=== PATIENT | male | born 1940 | race Caucasian/White ===

== ENCOUNTER 2016-08-27 16:04 | Emergency (ER) | payer MEDICARE ==
[~2016-08-27] VITALS: Ht 172.7 cm; Wt 109.1 kg
[~2016-08-27 16:04] MED LIST: AMLO10TA3 PO; ATEN50TA PO; ATOR80TA PO; B 12 PO; D3 PO; ENALAPRIL PO; FURO40TA4 PO; HUMALOG SQ; INSULIN GLARGINE SQ; LOVENOX SQ; METF1000 PO; TRAM50TA2 PO; WARF5TAB7 PO; WARF7.5T4 PO
[2016-08-27 16:41] VITALS: BP 161/83; PULSE 77; RESP 14; O2SAT 100
--- NOTE | 2016-08-27 18:32 | DRSVH ---
PROCEDURE: X-RAY LEFT SHOULDER, MINIMUM TWO VIEWS ([id number]) INDICATIONS: trauma TECHNIQUE: 3 views of the shoulder were acquired. COMPARISON: None. FINDINGS: Bones: There is a comminuted fracture with minimal displacement of the left humeral head/neck. There is no gross fracture identified at the glenoid or coracoid process.. There is a mild appearance of in ferior subluxation/dislocation. Soft tissues: No suspicious soft tissue calcifications. IMPRESSION: Comminuted fracture with minimal displacement of the left humeral head/neck. There is a m ild appearance of inferior subluxation/dislocation. Dictated by: Jodie Merritt M.D. on 08/27/2016 at 18:28 Approved by: Jodie Merritt M.D. on 08/27/2016 at 18:30
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
[2016-08-27] MEDS ORDERED: Ondansetron 2 mg/mL 2 mL Inj IVPUSH ONE (18:50)
[2016-08-27] MEDS ORDERED: HYDROmorphone 0.5 mg/0.5 mL iSecure Syringe IVPUSH PRN (18:50)
--- NOTE | 2016-08-27 19:24 | DRSVH ---
PROCEDURE: CT BRAIN WITHOUT CONTRAST ([id number]) INDICATIONS: head trauma on coumadin, h/o bleed TECHNIQUE: Noncontrast 4.5 mm thick angled axial sections acquired from the foramen magnum to the vertex, with c oronal reformats. COMPARISON: [facility], CT, CT BRAIN WO CON, 03/25/2015, 8:56. FINDINGS: Image quality: Excellent. CSF spaces: Basal cisterns are patent. No extra-axial fluid collections. The ventricles are symmet alana in size and shape. Brain: There is several poorly visualized areas of hyperdensity within the left posterior temporal pa rietal lobe. There is cerebral volume loss for age, with resultant ventricular and sulcal prominence. There are periventricular and deep white matter chronic small vessel ischemic changes. There is in tracranial internal carotid artery atherosclerosis. 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 Low attenua tion and right temporal craniotomy are changes consistent with old trauma. Skull and face: Calvarium and visualized facial bones appear intact, without suspicious lesions. Le ft frontotemporal scalp hematoma. Sinuses: Visualized sinuses and mastoids are clear. IMPRESSION: 1. Mild, right posterior parietal areas of hyperdensity most suggestive of subarachnoid hemorrhage. 2. Moderate atrophy and chronic microvascular ischemic changes. The above findings were discussed with Dr. Elie Aguilar on 08/27/16 at 7:19 PM. Dictated by: Jodie Merritt M.D. on 08/27/2016 at 19:18 Approved by: Jodie Merritt M.D. on 08/27/2016 at 19:22
[2016-08-27] MEDS ORDERED: Phytonadione (Adult) 10 MG in Dextrose 5%-Pha MIX 50 ML IV ONE (19:45)
[2016-08-27] MEDS ORDERED: Ondansetron 8 mg ODT Tablet PO ONE (20:15)
[2016-08-27] MEDS ORDERED: Phytonadione (Adult) 10 mg/1 mL Inj PO ONE (20:15)
[2016-08-27] MEDS ORDERED: oxyCODONE-Acetamin 10-325 mg Tablet PO ONE ×2 (20:15→22:50)
[2016-08-27 20:51] LABS: BASOPHILS % (AUTO) 0.3 % (0-3); EOSINOPHILS % (AUTO) 0.4 % (0-5); MONOCYTES % (AUTO) 6.3 % (4-12); Mean Corpuscular Hemoglobin 28.9 pg (27.0-35.0); Mean Corpuscular Volume 88.7 fL (81-100); NEUTROPHILS % (AUTO) 85.8 % (40-74); Platelet Count 183 bil/L (150-400)
[2016-08-27 21:06] VITALS: BP 151/85; PULSE 84; RESP 13; O2SAT 99
[2016-08-27 21:06] LABS: INR 1.85 ratio
[2016-08-27] MEDS ORDERED: Insulin GLARgine 100 Unit/mL Syringe SUBQ ONE (22:50)
[2016-08-27] MEDS ORDERED: Insulin LISPRO 300 Unit/3 mL Inj SUBQ ONE (22:55)
[2016-08-27 23:10] LABS: APPEARANCE,URINE CLEAR (CLEAR,HAZY); COLOR,URINE YELLOW (YELLOW); OCCULT BLOOD,URINE LARGE (NEGATIVE); PH,URINE 5.5 (5.0-8.0); UROBILINOGEN,URINE NORMAL (NORMAL)
[2016-08-27] MEDS ORDERED: Ondansetron 2 mg/mL 2 mL Inj ONE (23:17)
[2016-08-27 23:25] VITALS: BP 146/74; PULSE 68; RESP 16; O2SAT 96
== END 2016-08-27 23:40 | disposition short-term general hospital (02) ==
LOC: SED 16:04
DX: S06.6X0A Traumatic subarachnoid hemorrhage without loss of consciousness, initial encounter (principal); S42.292A Other displaced fracture of upper end of left humerus, initial encounter for closed fracture; V00.831A Fall from motorized mobility scooter, initial encounter; Y92.410 Unspecified street and highway as the place of occurrence of the external cause; Y93.89 Activity, other specified; Y99.8 Other external cause status; D72.829 Elevated white blood cell count, unspecified; E11.65 Type 2 diabetes mellitus with hyperglycemia; I10 Essential (primary) hypertension; E78.5 Hyperlipidemia, unspecified; I25.10 Atherosclerotic heart disease of native coronary artery without angina pectoris; I50.9 Heart failure, unspecified; E66.9 Obesity, unspecified; Z95.1 Presence of aortocoronary bypass graft; Z95.2 Presence of prosthetic heart valve; Z87.820 Personal history of traumatic brain injury; Z68.36 Body mass index [BMI] 36.0-36.9, adult; Z87.891 Personal history of nicotine dependence; Z79.01 Long term (current) use of anticoagulants; Z79.84 Long term (current) use of oral hypoglycemic drugs; Z79.4 Long term (current) use of insulin; Z88.6 Allergy status to analgesic agent; Z88.8 Allergy status to other drugs, medicaments and biological substances
CPT/HCPCS: 36415; 36556; 70450; 73030; 80053; 81000; 85025; 85610; 87086; 87088; 96372; 96374; 96375; 99291; J1170; J1815; J2405; J3430

== ENCOUNTER 2016-10-15 20:31 | Inpatient (IN) | payer MEDICARE ==
[~2016-10-15] VITALS: Ht 172.7 cm; Wt 111.6 kg
[2016-10-15 20:39] VITALS: BP 151/85; PULSE 97; RESP 16; O2SAT 88
--- NOTE | 2016-10-15 20:50 | ED.REPORT ---
HPI-Dyspnea / Wheezing Date of Service Oct 15, 2016 ED Provider: Mikael Chilel MD The pt is a 76 y/o male anticoagulated on Warfarin w/ a hx of DM, HTN, HLD, CAD (s/p CABG x4, mechanical aortic valve replacement), CHF, prior subdural hematomas (s/p surgical drainage and craniotomy) who presents to the ED with his complaining of severe shortness of breath, onset today. He reports shallow breathing. Associated sx include shaking, diaphoresis, cough for a week , hemoptysis,hematuria, and malaise. He denies chills, fever, chest pain, abdominal pain, diarrhea, hematochezia, melena, and dysuria. The pt has never experienced similar sx before. He had a fall a month and a half ago and hit his head. He denies a headache at this time. Code status: Full treatment/Full code Nursing Notes Stated Complaint: SHORTNESS OF BREATH, COUGH X 1 WEEK Chief Complaint: Respiratory Complaints Nursing Notes Reviewed: Yes Allergies: Coded Allergies: NSAIDS (Non-Steroidal Anti-Inflamma (Verified Allergy, Unknown, 03/25/15) cortisone (Verified Allergy, Unknown, 03/25/15) Scheduled Amlodipine (Amlodipine) 10 Mg Tablet 10 MG PO QAM Aspirin Chew (Aspirin Chew) 81 Mg Chew 81 MG PO QAM Atenolol (Atenolol) 50 Mg Tablet 50 MG PO QAM Atorvastatin (Lipitor) 80 Mg Tablet 80 MG PO HS Cholecalciferol (Vitamin D3) (Vitamin D3) 1,000 Unit Tab.chew 1,000 UNIT PO QAM Cyanocobalamin (Vitamin B-12) (Vitamin B-12) 1,000 Mcg Tablet 1,000 MCG PO QAM Enalapril Maleate (Enalapril Maleate) 20 Mg Tablet 20 MG PO BID Ferrous Sulfate (Ferrous Sulfate) 325 Mg Tablet 325 MG PO BIDWM Finasteride (Finasteride) 5 Mg Tablet 5 MG PO QAM Hydralazine (Hydralazine) 10 Mg Tablet 10 MG PO BID Insulin Human Lispro (HumaLOG U100 Insulin Vial) 100 Unit/Ml Unit 20 UNIT SUBQ BIDWM Check blood sugars before meals and at bedtime. Use correction factor only before meals. Blood Sugar Lispro Correction: <151, 0 units; 151-175, 1 unit; 176-200, 2 units; 201-225, 3 units; 226-250, 4 units; 251-275, 5 units; 276-300 , 6 units; 301-325, 7 units; 326-350, 8 units; 351-375, 9 units; 376-400, 10 units; >400, 12 units. Metformin (Glucophage) 1,000 Mg Tablet 1,000 MG PO BIDWM NPH, Human Insulin Isophane (Novolin-N U100 Insulin Vial) 100 Unit/1 Ml Vial 25 UNIT SUBQ BID Tamsulosin (Flomax) 0.4 Mg Capsule 0.4 MG PO HS Trazodone (Trazodone) 50 Mg Tablet 100 MG PO HS Warfarin Sodium (Warfarin Sodium) 5 Mg Tablet 5 MG PO DAILYWD Scheduled PRN Acetaminophen (Acetaminophen) 325 Mg Tablet 650 MG PO Q4H PRN PRN For Pain Furosemide (Furosemide) 40 Mg Tablet 40 MG PO DAILY PRN PRN EDEMA oxyCODONE (oxyCODONE) 5 Mg Tablet 5-10 MG PO Q6H PRN PRN For Pain MAX 6/DAY General Time Seen by MD: 20:49 Chief Complaint Shortness of breath Hx Obtained From: Patient Arrived By: Walk-in Sudden in Onset?: Yes Onset Occurred: 1 - 4 hours ago Symptom Duration: Since onset Severity: Current: No pain currently Severity: Maximum: No pain Recent Healthcare: No recent doctor visit Past Medical History Past Medical History Notes: Code status: Full treatment/Full code Past Medical History 1. Diabetes mellitus. 2. Hypertension. 3. Hypercholesterolemia. 4. Severe obesity 5. History of smoking. 6. Status post coronary artery bypass surgery x4 and mechanical aortic valve replacement on January 11, 2003. 7. Obstructive sleep apnea, on continuous positive airway pressure. 8. Chronic dizziness. 9. Right bundle branch block. 10. Moderate to severe tricuspid regurgitation. 11. h/o Subdural hematoma requiring surgical drainage and craniotomy January 2015 Past Surgical History aortic valve (mechanical) craniotomy for subdural January 2015 Family History Noncontributory Smoking History Former Smoker Social History Drug Use: Denies drug use Other Social History: Good social support, , Lives in [facility], Local resident Ambulatory Status Independent Review of Systems Constitutional: Reports: Malaise, Denies: Chills, Fever Respiratory: Reports: Prod cough, bloody, Shortness of breath Cardiovascular: Denies: Chest pain Skin: Reports Diaphoresis Complete sys rev & neg: except as marked. GI: Denies: Abdominal pain, Diarrhea, Hematochezia, Melena Male: Reports Hematuria, Denies Dysuria Neurologic: Reports: Shaking, Denies: Headache Physical Exam Initial Vital Signs Vital Signs (First) Date Time Temp Pulse Resp B/P Pulse Ox O2 Delivery O2 Flow Rate FiO2 10/15/16 20:39 36.3 97 16 151/85 88 Room Air 10/15/16 21:07 2 Initial VS: Reviewed Extremities: Vascular intact, Neuro intact, No swelling, No tenderness Skin: Warm, Dry, No cyanosis Neurologic: Alert, Oriented, Nonfocal General/Constitutional: Awake, Alert, Cooperative Distress / Hydration: Positive: Distress mild Neck: Atraumatic, Supple, Full range of motion, No JVD Respiratory / Chest: Atraumatic, No rales, No rhonchi, No wheezing Crackles at the left base. Cardiovascular: Heart rate NL, Regular rhythm, Heart sounds NL, No gallop, No murmurs, No rubs Soft systolic murmur Abdomen: Atraumatic, Soft, Non-tender, No guarding, No rebound, BS normoactive Head / Eyes: Atraumatic (post craniotomy changes) Interpretation & Diagnostics Lab Results Interpretation Result Diagram: 10/15/16211010/15/162110 Test 10/15/16 21:11 10/15/16 22:35 White Blood Count 13.2th/mm3 (3.8-10.1) Red Blood Count 4.31mil/mm3 (4.40-5.80) Hemoglobin 12.8g/dL (13.8-17.2) Hematocrit 39.5% (41.0-50.0) Mean Corpuscular Volume 91.6fL (81-100) Mean Corpuscular Hemoglobin 29.7pg (27.0-35.0) Mean Corpuscular Hemoglobin Concent 32.4% (32.0-37.0) Red Cell Distribution Width 16.7% (12.3-15.4) Platelet Count 296bil/L (150-400) Neutrophils (%) (Auto) 86.6% (40-74) Lymphocytes (%) (Auto) 5.0% (14-46) Monocytes (%) (Auto) 7.3% (4-12) Eosinophils (%) (Auto) 0.5% (0-5) Basophils (%) (Auto) 0.2% (0-3) Prothrombin Time 89.8sec (8.1-12.5) Prothromb Time International Ratio 8.04ratio Sodium Level 142mEq/L (134-144) Potassium Level 4.1mEq/L (3.5-5.2) Chloride Level 103mEq/L (97-108) Carbon Dioxide Level 20mmol/L (18-29) Blood Urea Nitrogen 24mg/dL (8-27) Creatinine 0.71mg/dL (0.76-1.27) Estimat Glomerular Filtration Rate 115mL/min (>59) Glucose Level 183mg/dL (60-99) Lactic Acid Level 3.4mmol/L (0.4-2.0) Calcium Level 9.7mg/dL (8.5-10.1) Magnesium Level 1.7mg/dL (1.6-2.6) Total Bilirubin 1.2mg/dL (0.0-1.2) Aspartate Amino Transf (AST/SGOT) 16U/L (0-50) Alanine Aminotransferase (ALT/SGPT) 13U/L (0-44) Alkaline Phosphatase 130U/L (25-160) Troponin T 0.030ug/L (0.0-0.011) Pro-B-Type Natriuretic Peptide 2309pg/mL (0-486) Total Protein 7.3g/dL (6.4-8.4) Albumin 3.6g/dL (3.4-5.0) Procalcitonin 0.06ng/mL (0.00-0.08) Urine Color Bloody (YELLOW) Urine Appearance Cloudy (CLEAR,HAZY) Urine pH Color interference Urine Specific [place] 1.026 (1.003-1.035) Urine Protein Color interferencemg/dL Urine Glucose (UA) Color interferencemg/dL Urine Ketones Color interferencemg/dL Urine Occult Blood Color interference Urine Nitrite Color interference Urine Bilirubin Color interference Urine Urobilinogen Color interferencemg/dL Urine Leukocyte Esterase Color interference Urine RBC Packed/hpf (0-2) Urine WBC >50/hpf (0-5) Urine Epithelial Cells Few/hpf (NONE-MOD) Urine Crystals None seen (NONE SEEN) Urine Bacteria Moderate/hpf (NONE-FEW) Urine Hyaline Casts None/lpf (NONE) Urine Granular Casts None seen (NONE SEEN) Urine Waxy Casts None seen (NONE SEEN) Urine Red Blood Cell Casts None seen (NONE SEEN) Urine White Blood Cell Casts None seen (NONE SEEN) Urine Mucus Present (None Seen) Urine Trichomonas None seen (NONE SEEN) Urine Yeast None (NONE SEEN) Urinalysis Comment None Urine Culture Reflexed Indicated ECG Interpretation ECG Interpretation: Sinus rhythm. Rate 98. RBBB Posterior fascicular block. Anterolateral ST depression. New compared to the ECG in 10/2014 Time: 21:16 Interpreted by: ED physician X-Ray Chest Interpretation Chest Xray Interpretation: IMPRESSION: Left effusion with right basilar/retrocardiac opacities and increased pulmonary vascularity. Appearance is most suggestive of effusions with edema. By Basler/retrocardiac opacities can be product support sales representative of focal edema versus atelectasis/pneumonia. Dictated by: Jodie Merritt M.D. on 10/15/2016 at 21:43 Approved by: Jodie Merritt M.D. on 10/15/2016 at 21:46 View: Portable, 1 view Interpretation / Wet Read by: Interpret - Radiologist CT Head Interpretation No acute intracranial traumatic abnormality. Incidental findings above. Signed by Dr. Shy Gilbert 10/15/16 23:15 Study: Head CT no contrast Interpretation / Wet Read by: Interpret - Radiologist Re-Eval/Medical Decision Med Decision/Clinical Course 76-year-old male with an acute respiratory illness pneumonia thought to be more likely the primary issue rather than pulmonary edema from congestive heart failure. Blood cultures have been obtained, we have sent a respiratory panel and started Levaquin and cefepime. He has hemoptysis and hematuria in the setting of a markedly prolonged INR. No evidence of ongoing GI bleeding and hemoptysis is not causing respiratory distress. We will hold his warfarin at this point but not give vitamin K. Clearly no indication for a more emergent reversal. As an elevated lactic acid level, cautiously given him saline fluid bolus. He will be admitted to the hospitalist service. Source of Hx: Old records Re-Evaluation/Progress : Time of Eval: 22:11 Re-Evaluation/Progress Note: The pt report mild relief in the ED. Discussed lab results, diagnosis and plan to admit the pt. He understands and agrees with the plan. All questions answered. Consultation : Referral / Consult Name: Jhony Dumont MD Consulted With: Hospitalist Requested Call at: 23:16 Call Returned at: 23:18 Rate Manager: Will see patient, Agrees with eval, Agrees with plan, Accepts admit Counseled Regarding: Diagnosis, Lab results, Need for admission Discharge & Departure Impression: Primary Impression: Pneumonia Pneumonia type: due to unspecified organism Laterality: left Lung location : unspecified part of lung Qualified Code: J18.9 - Pneumonia, unspecified organism Additional Impressions: Over-anticoagulated Sepsis Sepsis type: sepsis due to unspecified organism Qualified Code: A41.9 - Sepsis, unspecified organism Hematuria Elevated troponin Disposition: ADMITTED TO HOSPITAL Referrals: Malgorzata Varner MD (PCP) Scribe Attestation Portions of this note were transcribed by Shamar Torres. I,, personally performed the history,physical exam and medical decision-making;I reviewed and confirmed the accuracy of the information in the transcribed note. Signed by Kory Mandujano. 10/15/16 copies to: Malgorzata Varner MD, Donald L MD Oct 15, 2016 20:50 Shamar Torres Oct 15, 2016 21:14
[2016-10-15 21:07] VITALS: BP 140/91; PULSE 102; RESP 23; O2SAT 93
[2016-10-15 21:22] LABS: BASOPHILS % (AUTO) 0.2 % (0-3); EOSINOPHILS % (AUTO) 0.5 % (0-5); MONOCYTES % (AUTO) 7.3 % (4-12); Mean Corpuscular Hemoglobin 29.7 pg (27.0-35.0); Mean Corpuscular Volume 91.6 fL (81-100); NEUTROPHILS % (AUTO) 86.6 % (40-74); Platelet Count 296 bil/L (150-400)
--- NOTE | 2016-10-15 21:48 | DRSVH ---
PROCEDURE: X-RAY CHEST ONE VIEW, PORTABLE ([id number]) INDICATIONS: dyspnea TECHNIQUE: One view of the chest was acquired. COMPARISON: [facility], CR, XR CHEST 1VW (PORTABLE), 02/18/2015, 23:52. FINDINGS: Surgical changes and devices: Sternal wires. Lungs and pleura: Left costophrenic angle blunting with bibasilar/retrocardiac opacities. Mediastinum: Mediastinal contours appear normal. Heart size is normal. Bones and chest wall: No suspicious bony lesions. Overlying soft tissues appear unremarkable. IMPRESSION: Left effusion with right basilar/retrocardiac opacities and increased pulmonary vasculari ty. Appearance is most suggestive of effusions with edema. By Basler/retrocardiac opacities can be re presentative of focal edema versus atelectasis/pneumonia. Dictated by: Jodie Merritt M.D. on 10/15/2016 at 21:43 Approved by: Jodie Merritt M.D. on 10/15/2016 at 21:46
[2016-10-15 21:49] LABS: INR 8.04 ratio
[2016-10-15 21:51] LABS: TROPONIN T 0.03 ug/L (0.0-0.011)
[2016-10-15 22:02] LABS: Magnesium 1.7 mg/dL (1.6-2.6)
[2016-10-15] MEDS ORDERED: levoFLOXacin Inj 750 MG in IV Premix 1 EACH IV ONE (22:25)
[2016-10-15] MEDS ORDERED: Cefepime Inj 2,000 MG in Dextrose 5% Minibag Plus 100 ML IV ONE (22:25)
[2016-10-15] MEDS ORDERED: 0.9% Sodium Chloride 500 ML IV ONE (22:25)
[2016-10-15] MEDS ORDERED: WARF5TAB7 PO (22:31)
[2016-10-15] MEDS ORDERED: OXYC-530 PO (22:31)
[2016-10-15] MEDS ORDERED: NPH,100V10 SUBQ (22:34)
[2016-10-15] MEDS ORDERED: HYDR-3938 PO (22:34)
[2016-10-15] MEDS ORDERED: ASPI81TA3 PO (22:34)
[2016-10-15] MEDS ORDERED: FINA5TAB9 PO (22:34)
[2016-10-15] MEDS ORDERED: FERR-83 PO (22:34)
[2016-10-15] MEDS ORDERED: TAMS0.4C98 PO (22:34)
[2016-10-15] MEDS ORDERED: TRAZ-115 PO (22:35)
[2016-10-15] MEDS ORDERED: CYAN10008 PO (22:35)
[2016-10-15] MEDS ORDERED: CHOL10008 PO (22:35)
[2016-10-15] MEDS ORDERED: ENAL20TA PO (22:37)
[2016-10-15] MEDS ORDERED: INSLIS SUBQ (22:37)
[2016-10-15 22:45] LABS: APPEARANCE,URINE CLOUDY (CLEAR,HAZY); COLOR,URINE BLOODY (YELLOW); OCCULT BLOOD,URINE COLOR INTERFERENCE (NEGATIVE); PH,URINE COLOR INTERFERENCE (5.0-8.0); UROBILINOGEN,URINE COLOR INTERFERENCE mg/dL (NORMAL)
[2016-10-15] MEDS ORDERED: ACET325T51 PO (23:05)
[2016-10-15 23:24] VITALS: BP 146/67; PULSE 100; RESP 21; O2SAT 93
[2016-10-15 23:41] VITALS: BP 146/67; PULSE 100; RESP 21; O2SAT 93
[2016-10-16] VITALS (13 sets, daily range): BP systolic 117–155; BP diastolic 70–87; PULSE 82–120; RESP 18–28; O2SAT 92–94
[2016-10-16] MEDS ORDERED: Polyethylene Glycol (PEG) 17 Gm Powder PO PRN
[2016-10-16] MEDS ORDERED: Alum-Mag Hydrox-Simeth 30 mL Suspension PO PRN
[2016-10-16] MEDS ORDERED: Albuterol 2.5 mg/3 mL Inhalation Solution NEB PRN
--- NOTE | 2016-10-16 00:23 | PCM.HPMED ---
Subjective Date of Service Oct 16, 2016 Primary Provider: Admitting Physician: Jhony Dumont MD Primary Care Physician: Malgorzata Varner MD Attending Physician: Jhony Dumont MD Admit Status: From the Emergency Department, [facility] Telemetry Chief Complaint: Productive cough, with associated shortness of breath, hemoptysis, fatigue History of Present Illness: Mr. 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 Initial evaluation included CT of brain with concern of his unique history of subdural hematomas, which was negative for any acute changes. Chest x-ray revealed moderate left- sided effusion with bibasilar retrocardiac opacities indicative of focal edema and/or atelectasis/pneumonia. With his elevation in white count to 13.2, pulse of 102, and lactic acid of 3.4, he was admitted for evaluation of treatment of sepsis, likely secondary to underlying pneumonia. - Hospital day 1 Mr. Albright is accompanied by his , and both patient and family report that he has been feeling ill over the recent week leading to admission, with complaints of weakness and fatigue. He notes that he has developed a cough over the recent days, somewhat productive, with intermittent, scant hemoptysis. The day of admission, and they note that he had developed increasing shortness of breath, diaphoresis, and chills. He denies any history of fever, nausea, vomiting, diarrhea, constipation, abdominal pain, or dysuria. He does admit to decreased appetite over the recent week, which has led to decreased oral intake and hydration. He denies any recent ground-level falls, and reports that he is primarily bedbound most of this days. He reports that he has been experiencing poor sleep over the recent week, with sleep reported as only 2-4 hours a night, but he has remained increasingly progressively fatigued and weak. He denies any recent sick contacts, denies any contact with children , denies any aberrancy from his routine. White states that she has been feeling well over the recent weeks. Patient states he has been compliant with his warfarin dosing, with monthly checks at the INR clinic. His last check, he was instructed to hold his warfarin dosing until the Tuesday following weekend of admission (not knowing that he would later be admitted to the hospital). Additionally, patient notes hematuria, which is chronic, and he has been worked up by outpatient urology for this condition. In the ED, initial vitals included T 36.3, PT 97, R 16, 151/85, 88% on room air ; WBC 13.2 with 86.6% neutrophils, hemoglobin 12.8, hematocrit 39.5, with platelets 296; electrolytes are within range, creatinine 0.71, glucose 183, lactic acid 3.4, LFTs were within range, initial troponin 0.030, and initial pro -calcitonin 0.06; INR was significantly elevated at 8.04; UA revealed packed red blood cells which led to color interference of multiple data points, with moderate bacteria seen and greater than 50 white blood cells were present. Urinary cultures and blood cultures were obtained and currently pending. Initial imaging included chest x-ray which revealed left effusion with right basilar and retrocardiac opacities and increased pulmonary vascularity, with the appearance most suggestive of effusions with edema, which can also be medical collections representative of focal edema versus atelectasis versus pneumonia. CT of the head was also obtained, which did not reveal any acute intracranial traumatic abnormality. Initial therapies included Levaquin 150 mg and cefepime 2 g, and 1 liter normal saline. Patient was transported to medical floor in stable condition. Review of Systems: Complete review of systems obtained, pertinent positives and negatives as noted in history of present illness Allergies Coded Allergies: NSAIDS (Non-Steroidal Anti-Inflamma (Verified Allergy, Unknown, 03/25/15) cortisone (Verified Allergy, Unknown, 03/25/15) Home Medications Obtained from outpatient documentation dated 10/15/2016: Tito Albright [id number] 1940 10/15/2016 11:15 AM Page: 02/19 Medication Name Directions AMLODIPINE BESYLATE 10 MG TAB TAKE 1 TABLET BY MOUTH EVERY DAY Aspirin Low Dose 81 mg tablet,delayed release take 1 tablet by oral route every day ATENOLOL 50 MG TABLET TAKE 1 TABLET BY MOUTH EVERY DAY atorvastatin 80 mg tablet TAKE 1 TABLET BY MOUTH ATBEDTIME ENALAPRIL MALEATE 20 MG TAB TAKE 1 TABLET BY MOUTH TWICE A DAY ferrous sulfate 325 mg (65 mg iron) tablet take 1 tablet by ORAL route 2 times every day finasteride 5 mg tablet take 1 tablet by oral route every day furosemide 40 mg tablet take 1 tablet (40MG) by oral route once a day as needed for leg swelling Humalog 100 unit/mL subcutaneous solution INJECT 12-20 UNITS SUBCUTANEOUSLY 3 TIMES A DAY Humulin N 100 unit/mL subcutaneous suspension inject subQ 22-30 units twice a day with breakfast and dinner hydralazine 10 mg tablet take 1 tablet by oral route 2 times every day with food METFORMIN HCL 1,000 MG TABLET TAKE 1 TABLET BY MOUTH TWICE A DAY WITH MORNING AND EVENING MEALS ONETOLLUSTRE ULTRA TEST STRIPS USE TO TEST BLOOD SUGAR 3TIMES DAILY oxycodone 5 mg tablet take 1-2 tablet by oral route every 6 hours as needed. Max 6 a day TAMSULOSIN HCL 0.4 MG CAPSULE TAKE 1 CAPSULE BY MOUTH EVERY DAY 1/2 HOUR FOLLOWING THE SAME MEAL EACH DAY trazodone 50 mg tablet take 1-2 tablet by ORAL route every bedtime Vitamin B-12 1,000 mcg tablet 1 tablet po QD Vitamin D3 1,000 unit capsule 1 tablet po QD warfarin 5 mg tablet take 1 1/2 tablets (7.5mg) daily except 1 tablet (5mg) [facility] Patient confirmed medications above, as this visit was just prior to this hospital admission, and patient dated pronounced of outpatient visit and verified his medications. Additional outpatient documentation dated 10/15/2016 from coagulation clinic, with instructions to hold warfarin October 15, Tuesday, October 16, and Tuesday, October 17 PMH Diabetes mellitus, not requiring insulin Hypertension Hypercholesterolemia Obesity Distant history of tobacco use Coronary artery disease status post coronary artery bypass 4, ERICA placement Mechanical aortic valve replacement 2002 Obstructive sleep apnea on CPAP therapy Chronic dizziness Right bundle branch block Moderate to severe tricuspid regurgitation History of subdermal hematoma following a ground-level fall that required surgical drainage and craniotomy in 2014 Outpatient documentation notes history of anxiety, insomnia, atrial fibrillation , BPH, cataracts bilaterally, arthritis, L3 burst fracture after a ground-level fall in 2016, nonproliferative diabetic retinopathy Patient denied any history of atrial fibrillation to his knowledge Surgical History Mechanical aortic valve replacement 2002 Coronary artery bypass surgery 4, ERICA placement Surgical drainage of subdural hematoma and craniotomy, 2015 Phaco bilaterally Outpatient documentation: Appendectomy, cystoscopy 2011, colonoscopy 2014 Family History Patient reports significant history of coronary artery disease, including relatives passing away from myocardial infarction at the age of 19 Brother: Diabetes, coronary artery disease Father: of heart disease in his 70s, heart disease Grandparents: Coronary artery disease and diabetes Mother: Emphysema and lung cancer Sister: Diabetes Social History Hx Alcohol Use: No Hx Substance Use: No Hx Tobacco Use: No Smoking Status: Former Smoker (quit 1968) Living Arrangement: with Family (, local) Exam Vital Signs Vital Sign - Last Date Time Temp Pulse Resp B/P Pulse Ox O2 Delivery O2 Flow Rate FiO2 10/15/16 23:41 100 21 146/67 93 Nasal Cannula 2 10/15/16 20:39 36.3 Intake and Output 10/15/16 10/15/16 10/16/16 Cumulative From/Thru 15:00 23:00 07:00 10/15/16 20:39 - 10/15/16 22:56 Intake Total 999 ml 999 ml Output Total 80 ml 80 ml Balance 919 ml 919 ml Intake IV Total 999 ml 999 ml Output Urine Total 80 ml 80 ml # Voids 1 1 Exam General: Alert and oriented 3; pleasant gentleman resting supine in bed in no acute distress HEENT: Atraumatic, normocephalic, sclera anicteric, membranes moist; nasal cannula in place Neck: Full range of motion without pain Cardiac: Regular rate and rhythm at time of examination with systolic murmur, 3/ 6 Respiratory: Decreased air flow bilateral bases, left greater than right, with faint crackles at left base; no wheezes appreciated Chest: Atraumatic without any reproducible pain with palpation Abdomen: Soft, nontender, nondistended Extremities: No edema appreciated; multiple well-healed scars noted bilateral lower extremities, with some chronic skin changes Skin: Warm and dry MSK: 5/5 strength 4/4 extremities at major joints of the shoulder, hip Neuro: Cranial nerves II-XII grossly intact, speech without slur, facial expressions equal and symmetric Psych: Appropriate mood, affect, and responses to questions; good insight and judgment Lab and Diagnostics Result Diagram: 10/15/16211010/15/162110 Assessment & Plan Mr. 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 Initial evaluation included CT of brain with concern of his unique history of subdural hematomas, which was negative for any acute changes. Chest x-ray revealed moderate left- sided effusion with bibasilar retrocardiac opacities indicative of focal edema and/or atelectasis/pneumonia. With his elevation in white count to 13.2, pulse of 102, and lactic acid of 3.4, he was admitted for evaluation of treatment of sepsis, likely secondary to underlying pneumonia. - Hospital day 1 Sepsis, acute, present on admission, under evaluation - On admit: P >90, WBC 13.2, lactic acid 3.4 - Likely secondary to underlying pneumonia, likely community-acquired, evidenced on XR at admission - Treat underlying cause Community-acquired pneumonia, acute, present on admission, under therapy - XR admit: Left-sided effusion, bibasilar opacities, and retrocardiac opacities - Complete PNA work up: Legionella, strep pneumonia urine, sputum cultures, blood cultures, pro-calcitonin, respiratory PCR - Monitor effusion, consider thoracentesis if no improvement or worsening, with diagnostic evaluation - DDx: Infxn, hemothorax, empyema, malignancy, transudative - Consider advanced imaging such as CT - Continue antibiotics: Levaquin, zosyn, vanco - Initial PCT negative, may be viral; consider DC of abx - We will obtain MRSA swab; DC vanco if negative - Zosyn coverage for atypicals, as patient is diabetic, and new onset cough, which may have led to some mild aspiration - Please note, previous admission in 2011, patient had adverse reactions to ceftriaxone and azithromycin, defects noted as severe nausea and vomiting - Tailor coverage as results yield from pending studies - CXR in am Elevated INR, acute, present on admission, monitoring - On admit: INR 8.03 - No vitamin K given in ED; no indication for urgent reversal - Likely secondary to underlying illness, in the setting of decreased appetite and intake - Patient reports compliance with Coumadin dosing and monthly monitoring in clinic - No signs of overt bleeding at time of admission, with scans including CT as noted above - We will continue to monitor with daily coag panel - Could this be related to effusion? Consider malignancy, although low on DDx - Elevated INR likely contributing to scant hemoptysis, and hematuria Elevated lactic acid, likely acute, present on admission, under evaluation - On admit: Lactic acid 3.4 - Likely secondary to underlying pneumonia/infection, and dehydration; no evidence of chronic kidney disease - Continue to monitor Diabetes mellitus, non-insulin using, chronic, presumed stable - Medium dose correctional; resume home dose when adequate appetite returns - A1c 08/19/2016: 7.1 Mechanical aortic valve on chronic anticoagulation therapy, currently unstable secondary to elevated INR - As noted above - Monitor History of coronary artery disease status post CABG 4 and drug-eluting stent placement - Resume home medications when reconciliation completed when appropriate - Echo 2014: EF 55-60, basal inferior wall hypokinesis, moderate mitral annular calcification, moderate mitral regurgitation, mechanical aortic valve, moderate to severe tricuspid regurgitation History of insomnia and anxiety, chronic, presumed stable - Resume home medication trazodone 50 mg, 1-2 tabs as needed for sleep Hematuria, reported as chronic, present on admission, presumed stable - On admit: UA revealed significant blood with color interference - 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 , and he has been worked up by outpatient urology - Monitor for any worsening, as patient's INR is significantly elevated PRN fever, bowel, nausea, pain DVT: SCDs only, patient is supratherapeutic on Coumadin Diet: Diabetic/heart GI: Not indicated IVF: NS100 Code: FULL CODE Patient status: Patient is admitted under inpatient status with expected length of stay greater than 2 midnights due to severity of presenting symptoms, risk of adverse event, and complexity of treatment plan. Pain Evaluation: Adequate Pain Control GI Prophylaxis: Not indicated VTE Prophylaxis: Theraputic Anticoag with Warfarin Resuscitation Status: CPR: Attempt Resuscitation Attending Statement The patient was seen and examined together with Dr. Morel on 10/15 and I agree with the history, exam and plan as outlined in the note above. Aliyah Morel DO Oct 16, 2016 00:23 Jhony Dumont MD Oct 16, 2016 04:44
[2016-10-16] MEDS ORDERED: Dextrose 10% 250 ML IV PRN (01:30)
[2016-10-16] MEDS ORDERED: Insulin LISPRO Medium-Dose Scale SUBQ PRN (01:30)
[2016-10-16] MEDS ORDERED: Glucose 40% Oral Gel 15 Gm Tube PO SCH (01:30)
[2016-10-16] MEDS: Albuterol-Ipratropium 3 mL Inhalation Solution NEB PRN ×2 (01:38→19:07)
[2016-10-16] MEDS: 0.9% Sodium Chloride 1,000 ML IV SCH ×3 (01:55→19:46)
[2016-10-16] MEDS ORDERED: Piperacillin-Tazo 3.375 Gm Inj 3.375 GM in Dextrose 5% Minibag Plus 50 ML IV ONE (02:20)
[2016-10-16] MEDS ORDERED: Vancomycin Inj 2,000 MG in 0.9% Sodium Chloride 500 ML IV ONE (02:40)
--- NOTE | 2016-10-16 03:18 | PCM.CONPHA ---
Subjective Date of Service: Oct 16, 2016 Productive cough, with associated shortness of breath, hemoptysis, fatigue Reason for Pharmacy Consult: Anticoagulation Management Objective Vital Signs Date Time Temp Pulse Resp B/P Pulse Ox O2 Delivery O2 Flow Rate FiO2 10/16/16 01:20 120 22 94 Nasal Cannula 3.50 10/16/16 00:57 Supplement Oxygen 10/16/16 00:46 36.2 103 26 155/84 Nasal Cannula 3.00 92 10/15/16 23:41 100 21 146/67 93 Nasal Cannula 2 10/15/16 23:24 100 21 146/67 93 Nasal Cannula 2 10/15/16 21:07 102 23 140/91 93 Nasal Cannula 2 10/15/16 20:39 36.3 97 16 151/85 88 Room Air Intake and Output 10/14/16 10/15/16 10/16/16 00:00 00:00 00:00 Intake Total 999 ml Output Total 80 ml Balance 919 ml Weight (Kilograms): 107.500 Height (Feet): 5 Height (Inches): 8.00 Test 10/15/16 21:11 10/15/16 22:35 10/16/16 01:42 White Blood Count 13.2th/mm3 (3.8-10.1) Red Blood Count 4.31mil/mm3 (4.40-5.80) Hemoglobin 12.8g/dL (13.8-17.2) Hematocrit 39.5% (41.0-50.0) Mean Corpuscular Volume 91.6fL (81-100) Mean Corpuscular Hemoglobin 29.7pg (27.0-35.0) Mean Corpuscular Hemoglobin Concent 32.4% (32.0-37.0) Red Cell Distribution Width 16.7% (12.3-15.4) Platelet Count 296bil/L (150-400) Neutrophils (%) (Auto) 86.6% (40-74) Lymphocytes (%) (Auto) 5.0% (14-46) Monocytes (%) (Auto) 7.3% (4-12) Eosinophils (%) (Auto) 0.5% (0-5) Basophils (%) (Auto) 0.2% (0-3) Prothrombin Time 89.8sec (8.1-12.5) Prothromb Time International Ratio 8.04ratio Lactic Acid Level 3.4mmol/L (0.4-2.0) Magnesium Level 1.7mg/dL (1.6-2.6) Troponin T 0.030ug/L (0.0-0.011) Pro-B-Type Natriuretic Peptide 2309pg/mL (0-486) Procalcitonin 0.06ng/mL (0.00-0.08) Urine Color Bloody (YELLOW) Urine Appearance Cloudy (CLEAR,HAZY) Urine pH Color interference Urine Specific [place] 1.026 (1.003-1.035) Urine Protein Color interferencemg/dL Urine Glucose (UA) Color interferencemg/dL Urine Ketones Color interferencemg/dL Urine Occult Blood Color interference Urine Nitrite Color interference Urine Bilirubin Color interference Urine Urobilinogen Color interferencemg/dL Urine Leukocyte Esterase Color interference Urine RBC Packed/hpf (0-2) Urine WBC >50/hpf (0-5) Urine Epithelial Cells Few/hpf (NONE-MOD) Urine Crystals None seen (NONE SEEN) Urine Bacteria Moderate/hpf (NONE-FEW) Urine Hyaline Casts None/lpf (NONE) Urine Granular Casts None seen (NONE SEEN) Urine Waxy Casts None seen (NONE SEEN) Urine Red Blood Cell Casts None seen (NONE SEEN) Urine White Blood Cell Casts None seen (NONE SEEN) Urine Mucus Present (None Seen) Urine Trichomonas None seen (NONE SEEN) Urine Yeast None (NONE SEEN) Urinalysis Comment None Urine Culture Reflexed Indicated Sodium Level 144mEq/L (134-144) Potassium Level 4.0mEq/L (3.5-5.2) Chloride Level 104mEq/L (97-108) Carbon Dioxide Level 22mmol/L (18-29) Blood Urea Nitrogen 20mg/dL (8-27) Creatinine 0.58mg/dL (0.76-1.27) Estimat Glomerular Filtration Rate 146mL/min (>59) Glucose Level 101mg/dL (60-99) Calcium Level 9.4mg/dL (8.5-10.1) Total Bilirubin 1.2mg/dL (0.0-1.2) Aspartate Amino Transf (AST/SGOT) 19U/L (0-50) Alanine Aminotransferase (ALT/SGPT) 14U/L (0-44) Alkaline Phosphatase 134U/L (25-160) Total Protein 7.5g/dL (6.4-8.4) Albumin 3.7g/dL (3.4-5.0) Assessment/Plan Assessment/Plan WARFARIN MANAGEMENT A\ 76 YO M ADMITTED FOR PNEUMONIA/SEPSIS WITH A HISTORY OF MECHANICAL AORTIC VALVE REPLACEMENT HOME DOSE WARFARIN 5MG PO DAILY GOAL INR= 2-3 CURRENT INR=8.04 HCT=39.5 CQI=940 PT HAS HAD HEMOPTYSIS AND HEMATEMESIS LAST WARFARIN DOSE UNKNOWN. INTERACTING MEDICATIONS WITH WARFARIN: LEVOFLOXACIN, ZOSYN, VANCOMYCIN CAN INCREASE BLEEDING RISK ATENOLOL MAY INCREASE PT/INR P\ WILL HOLD WARFARIN TONIGHT AND CHECK INR WITH AM LABS. Mateusz Guerrero [facility] Oct 16, 2016 03:18
--- NOTE | 2016-10-16 04:12 | PCM.CONPHA ---
Subjective Date of Service: Oct 16, 2016 Productive cough, with associated shortness of breath, hemoptysis, fatigue Reason for Pharmacy Consult: Vancomycin Dosing Objective Vital Signs Date Time Temp Pulse Resp B/P Pulse Ox O2 Delivery O2 Flow Rate FiO2 10/16/16 03:33 36.6 103 136/79 Nasal Cannula 3.00 91 10/16/16 01:20 120 22 94 Nasal Cannula 3.50 10/16/16 00:57 Supplement Oxygen 10/16/16 00:46 36.2 103 26 155/84 Nasal Cannula 3.00 92 10/15/16 23:41 100 21 146/67 93 Nasal Cannula 2 10/15/16 23:24 100 21 146/67 93 Nasal Cannula 2 10/15/16 21:07 102 23 140/91 93 Nasal Cannula 2 10/15/16 20:39 36.3 97 16 151/85 88 Room Air Intake and Output 10/14/16 10/15/16 10/16/16 00:00 00:00 00:00 Intake Total 999 ml Output Total 80 ml Balance 919 ml Weight (Kilograms): 107.500 Height (Feet): 5 Height (Inches): 8.00 Test 10/15/16 21:11 10/15/16 22:35 10/16/16 01:42 White Blood Count 13.2th/mm3 (3.8-10.1) Red Blood Count 4.31mil/mm3 (4.40-5.80) Hemoglobin 12.8g/dL (13.8-17.2) Hematocrit 39.5% (41.0-50.0) Mean Corpuscular Volume 91.6fL (81-100) Mean Corpuscular Hemoglobin 29.7pg (27.0-35.0) Mean Corpuscular Hemoglobin Concent 32.4% (32.0-37.0) Red Cell Distribution Width 16.7% (12.3-15.4) Platelet Count 296bil/L (150-400) Neutrophils (%) (Auto) 86.6% (40-74) Lymphocytes (%) (Auto) 5.0% (14-46) Monocytes (%) (Auto) 7.3% (4-12) Eosinophils (%) (Auto) 0.5% (0-5) Basophils (%) (Auto) 0.2% (0-3) Prothrombin Time 89.8sec (8.1-12.5) Prothromb Time International Ratio 8.04ratio Lactic Acid Level 3.4mmol/L (0.4-2.0) Magnesium Level 1.7mg/dL (1.6-2.6) Troponin T 0.030ug/L (0.0-0.011) Pro-B-Type Natriuretic Peptide 2309pg/mL (0-486) Procalcitonin 0.06ng/mL (0.00-0.08) Urine Color Bloody (YELLOW) Urine Appearance Cloudy (CLEAR,HAZY) Urine pH Color interference Urine Specific [place] 1.026 (1.003-1.035) Urine Protein Color interferencemg/dL Urine Glucose (UA) Color interferencemg/dL Urine Ketones Color interferencemg/dL Urine Occult Blood Color interference Urine Nitrite Color interference Urine Bilirubin Color interference Urine Urobilinogen Color interferencemg/dL Urine Leukocyte Esterase Color interference Urine RBC Packed/hpf (0-2) Urine WBC >50/hpf (0-5) Urine Epithelial Cells Few/hpf (NONE-MOD) Urine Crystals None seen (NONE SEEN) Urine Bacteria Moderate/hpf (NONE-FEW) Urine Hyaline Casts None/lpf (NONE) Urine Granular Casts None seen (NONE SEEN) Urine Waxy Casts None seen (NONE SEEN) Urine Red Blood Cell Casts None seen (NONE SEEN) Urine White Blood Cell Casts None seen (NONE SEEN) Urine Mucus Present (None Seen) Urine Trichomonas None seen (NONE SEEN) Urine Yeast None (NONE SEEN) Urinalysis Comment None Urine Culture Reflexed Indicated Sodium Level 144mEq/L (134-144) Potassium Level 4.0mEq/L (3.5-5.2) Chloride Level 104mEq/L (97-108) Carbon Dioxide Level 22mmol/L (18-29) Blood Urea Nitrogen 20mg/dL (8-27) Creatinine 0.58mg/dL (0.76-1.27) Estimat Glomerular Filtration Rate 146mL/min (>59) Glucose Level 101mg/dL (60-99) Calcium Level 9.4mg/dL (8.5-10.1) Total Bilirubin 1.2mg/dL (0.0-1.2) Aspartate Amino Transf (AST/SGOT) 19U/L (0-50) Alanine Aminotransferase (ALT/SGPT) 14U/L (0-44) Alkaline Phosphatase 134U/L (25-160) Total Protein 7.5g/dL (6.4-8.4) Albumin 3.7g/dL (3.4-5.0) Assessment/Plan Assessment/Plan VANCOMYCIN MANAGEMENT A\ 76 YO M ADMITTED FOR PNEUMONIA/ SEPSIS SCR=0.58 DXSQ=667 WBC =13.2 LACT=3.4 PORCAL=0.06 AFEBRILE ALSO RECEIVING LEVOFLOXACIN AND ZOSYN P\ WILL GIVE A LOADING DOSE OF VANCOMYCIN 2000MG IV X1 (GIVEN AT 0345 10/16) AND START VANCOMYCIN 1000MG IV Q12H PER PROTOCOL 10/16 1700. WILL MONITOR SERUM CREATININE DAILY X3 AND CHECK A VANCOMYCIN TROUGH BEFORE THE 4TH DOSE 10/17 1630 Mateusz Guerrero [facility] Oct 16, 2016 04:12
[2016-10-16 05:46] LABS: BASOPHILS % (AUTO) 0.1 % (0-3); EOSINOPHILS % (AUTO) 0.2 % (0-5); MONOCYTES % (AUTO) 4.7 % (4-12); Mean Corpuscular Hemoglobin 29.5 pg (27.0-35.0); Mean Corpuscular Volume 89.8 fL (81-100); Platelet Count 296 bil/L (150-400)
[2016-10-16] MEDS: Piperacillin-Tazo 3.375 Gm Inj 3.375 GM in Dextrose 5% Minibag Plus 50 ML IV SCH ×3 (06:03→22:32)
[2016-10-16 06:17] LABS: Magnesium 1.6 mg/dL (1.6-2.6)
[2016-10-16 06:21] LABS: INR 8.57 ratio
--- NOTE | 2016-10-16 07:31 | NUR ---
[facility] ADMIT Received from ED via gurney, transferred to Room 2003. Pt. unable to ambulate and transferred via slider board to bed. Pt. indicates feeling hot, SOB, notably diaphoretic, generalized pain (8/10) and anxious. Spo2 89%, Placed on 3L NC. RT administered duoneb. notified (Dr. Morel). IV antibiotics given, and Tylenol for pain. Patient settled and was able to rest. Patient has increase in urinary frequency, noted to be positive for hematuria. Nasal MRSA/Viral PCR collected and sent to lab, pt. educated on Sputum collection and will present when able Tele: Sinus Tach 90's to 100's. Report given to on coming RN. Addendum: 10/16/16 at 0752 by LYNETTE SANTOS RN Lab called critical PT/INR values, Fabian Team Wilder page sent to inform
--- NOTE | 2016-10-16 07:47 | DRSVH ---
PROCEDURE: CT BRAIN WITHOUT CONTRAST ([id number]) INDICATIONS: anticoagulated, head injury TECHNIQUE: Noncontrast 4.5 mm thick angled axial sections acquired from the foramen magnum to the vertex, with c oronal reformats. COMPARISON: [facility], CT, CT BRAIN WO CON, 08/27/2016, 19:11. FINDINGS: Image quality: Excellent. CSF spaces: Basal cisterns are patent. No extra-axial fluid collections. The ventricles are symmet alana in size and shape. Brain: No intracranial bleeds or masses. There is cerebral volume loss for age, with resultant vent ricular and sulcal prominence. There are periventricular and deep white matter chronic small vessel ischemic changes. There is intracranial internal carotid artery atherosclerosis. Right temporal and left parietal occipital encephalomalacia are again noted. Skull and face: Calvarium and visualized facial bones appear intact, without suspicious lesions. Sinuses: Visualized sinuses and mastoids are clear. IMPRESSION: 1. No acute intracranial process. 2. Moderate atrophy and chronic microvascular ischemic changes. Dictated by: Jodie Merritt M.D. on 10/16/2016 at 7:43 Approved by: Jodie Merritt M.D. on 10/16/2016 at 7:45
[2016-10-16] MEDS ORDERED: Insulin LISPRO 300 Unit/3 mL Inj SUBQ SCH (08:00)
[2016-10-16] MEDS: Insulin Human NPH 100 Unit/mL Syringe SUBQ SCH (08:22)
[2016-10-16] MEDS ORDERED: Vancomycin Dose per Pharmacist XX SCH (08:30)
[2016-10-16] MEDS ORDERED: Insulin Human NPH 100 Unit/mL 3 mL Inj SUBQ SCH (08:30)
--- NOTE | 2016-10-16 09:11 | DRSVH ---
PROCEDURE: X-RAY CHEST ONE VIEW, PORTABLE ([id number]) INDICATIONS: shortness of breath TECHNIQUE: One view of the chest was acquired. COMPARISON: [facility], CR, XR CHEST 1VW (PORTABLE), 10/15/2016, 21:18. FINDINGS: Surgical changes and devices: Sternal wires. Lungs and pleura: Increased pulmonary vascularity is present as well as retrocardiac opacity. Mediastinum: Mediastinal contours appear normal. Heart size is normal. Bones and chest wall: No suspicious bony lesions. Overlying soft tissues appear unremarkable. IMPRESSION: Cardiomegaly with increased pulmonary vascularity suggestive of edema. Increased retrocar diac opacity is present suggestive of focal edema or developing pneumonia/atelectasis. Dictated by: Jodie Merritt M.D. on 10/16/2016 at 9:09 Approved by: Jodie Merritt M.D. on 10/16/2016 at 9:10
[2016-10-16] MEDS ORDERED: Vancomycin Inj 1,000 MG in IV Premix 1 EACH IV SCH (17:00)
--- NOTE | 2016-10-16 17:37 | PCM.PNMED ---
Subjective Date of Service Oct 16, 2016 Subjective Mr. 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 Initial evaluation included CT of brain with concern of his unique history of subdural hematomas, which was negative for any acute changes. Chest x-ray revealed moderate left- sided effusion with bibasilar retrocardiac opacities indicative of focal edema and/or atelectasis/pneumonia. With his elevation in white count to 13.2, pulse of 102, and lactic acid of 3.4, he was admitted for evaluation of treatment of sepsis, likely secondary to underlying pneumonia. This morning, patient states that he does not feel well at all. He says that he hurts all over. He denies chest pain but reports cough, hemoptysis, shortness of breath and hematuria. He states that his hematuria has been worked up as an outpatient. He also notes that he has not been eating much over the past week he denies nausea and vomiting. Overnight, he notes that he has had difficulty sleeping well. Review of systems, patient denies visual changes, headaches, nausea, vomiting, abdominal pain and dysuria Exam Vital Signs Vital Sign - Last Date Time Temp Pulse Resp B/P Pulse Ox O2 Delivery O2 Flow Rate FiO2 10/16/16 08:46 118 10/16/16 08:15 18 93 Nasal Cannula 3.50 10/16/16 07:59 36.5 155/87 10/16/16 03:33 91 Intake and Output 10/15/16 10/15/16 10/16/16 Cumulative From/Thru 15:00 23:00 07:00 10/15/16 20:39 - 10/16/16 06:50 Intake Total 999 ml 1224 ml 2223 ml Output Total 80 ml 200 ml 280 ml Balance 919 ml 1024 ml 1943 ml Intake Oral 113 ml 113 ml IV Total 999 ml 1111 ml 2110 ml Output Urine Total 80 ml 200 ml 280 ml # Voids 1 1 2 Exam General: Patient is ill-appearing but lying comfortably on bed, AAOX3, not in acute distress, cooperative and pleasant. HEENT: Scar on the skull with evidence of surgery, PERRLA, EOMI, no scleral icterus, noninjected conjunctiva, watery eyes with evidence of discharge Neck: neck supple, non-tender, no lymphadenopathy, trachea midline, no JVD CV: regular rate and rhythm, s1 and s2 heard, no murmur, grade 3/6 systolic murmur Lungs: Decreased breath sounds bilaterally with crackles on the left base, no increased work of breathing, patient on supplemental oxygen Abdomen: normoactive bowel sounds on 4Q, soft, non-distended, non-tender to palpation, no organomegally, Skin: warm and dry Musculoskeletal: Weakness of upper and lower extremities bilaterally Neuro: Grossly neurologically intact, cranial nerves II through XII intact, no dyskinesia, dysmetria, or dysdiadochokinesia noted Psych: Normal mood and affect IVs and Medications Medications Reviewed: Medications were reviewed in detail Medications High-risk medications include oxycodone Lab and Diagnostics Laboratory Tests Test 10/15/16 21:11 10/15/16 22:27 10/15/16 22:35 10/16/16 01:42 White Blood Count 13.2th/mm3 (3.8-10.1) Red Blood Count 4.31mil/mm3 (4.40-5.80) Hemoglobin 12.8g/dL (13.8-17.2) Hematocrit 39.5% (41.0-50.0) Mean Corpuscular Volume 91.6fL (81-100) Mean Corpuscular Hemoglobin 29.7pg (27.0-35.0) Mean Corpuscular Hemoglobin Concent 32.4% (32.0-37.0) Red Cell Distribution Width 16.7% (12.3-15.4) Platelet Count 296bil/L (150-400) Neutrophils (%) (Auto) 86.6% (40-74) Lymphocytes (%) (Auto) 5.0% (14-46) Monocytes (%) (Auto) 7.3% (4-12) Eosinophils (%) (Auto) 0.5% (0-5) Basophils (%) (Auto) 0.2% (0-3) Prothrombin Time 89.8sec (8.1-12.5) Prothromb Time International Ratio 8.04ratio Sodium Level 142mEq/L (134-144) 144mEq/L (134-144) Potassium Level 4.1mEq/L (3.5-5.2) 4.0mEq/L (3.5-5.2) Chloride Level 103mEq/L (97-108) 104mEq/L (97-108) Carbon Dioxide Level 20mmol/L (18-29) 22mmol/L (18-29) Blood Urea Nitrogen 24mg/dL (8-27) 20mg/dL (8-27) Creatinine 0.71mg/dL (0.76-1.27) 0.58mg/dL (0.76-1.27) Estimat Glomerular Filtration Rate 115mL/min (>59) 146mL/min (>59) Glucose Level 183mg/dL (60-99) 101mg/dL (60-99) Lactic Acid Level 3.4mmol/L (0.4-2.0) Calcium Level 9.7mg/dL (8.5-10.1) 9.4mg/dL (8.5-10.1) Magnesium Level 1.7mg/dL (1.6-2.6) Total Bilirubin 1.2mg/dL (0.0-1.2) 1.2mg/dL (0.0-1.2) Aspartate Amino Transf (AST/SGOT) 16U/L (0-50) 19U/L (0-50) Alanine Aminotransferase (ALT/SGPT) 13U/L (0-44) 14U/L (0-44) Alkaline Phosphatase 130U/L (25-160) 134U/L (25-160) Troponin T 0.030ug/L (0.0-0.011) Pro-B-Type Natriuretic Peptide 2309pg/mL (0-486) Total Protein 7.3g/dL (6.4-8.4) 7.5g/dL (6.4-8.4) Albumin 3.6g/dL (3.4-5.0) 3.7g/dL (3.4-5.0) Procalcitonin 0.06ng/mL (0.00-0.08) Urine Legionella pneumophilia Ag Negative (Negative) Urine Color Bloody (YELLOW) Urine Appearance Cloudy (CLEAR,HAZY) Urine pH Color interference Urine Specific [place] 1.026 (1.003-1.035) Urine Protein Color interferencemg/dL Urine Glucose (UA) Color interferencemg/dL Urine Ketones Color interferencemg/dL Urine Occult Blood Color interference Urine Nitrite Color interference Urine Bilirubin Color interference Urine Urobilinogen Color interferencemg/dL Urine Leukocyte Esterase Color interference Urine RBC Packed/hpf (0-2) Urine WBC >50/hpf (0-5) Urine Epithelial Cells Few/hpf (NONE-MOD) Urine Crystals None seen (NONE SEEN) Urine Bacteria Moderate/hpf (NONE-FEW) Urine Hyaline Casts None/lpf (NONE) Urine Granular Casts None seen (NONE SEEN) Urine Waxy Casts None seen (NONE SEEN) Urine Red Blood Cell Casts None seen (NONE SEEN) Urine White Blood Cell Casts None seen (NONE SEEN) Urine Mucus Present (None Seen) Urine Trichomonas None seen (NONE SEEN) Urine Yeast None (NONE SEEN) Urinalysis Comment None Urine Culture Reflexed Indicated Test 10/16/16 05:30 White Blood Count 18.9th/mm3 (3.8-10.1) Red Blood Count 4.13mil/mm3 (4.40-5.80) Hemoglobin 12.2g/dL (13.8-17.2) Hematocrit 37.1% (41.0-50.0) Mean Corpuscular Volume 89.8fL (81-100) Mean Corpuscular Hemoglobin 29.5pg (27.0-35.0) Mean Corpuscular Hemoglobin Concent 32.9% (32.0-37.0) Red Cell Distribution Width 16.7% (12.3-15.4) Platelet Count 296bil/L (150-400) Neutrophils (%) (Auto) 93.0% (40-74) Lymphocytes (%) (Auto) 1.8% (14-46) Monocytes (%) (Auto) 4.7% (4-12) Eosinophils (%) (Auto) 0.2% (0-5) Basophils (%) (Auto) 0.1% (0-3) Prothrombin Time 95.8sec (8.1-12.5) Prothromb Time International Ratio 8.57ratio Creatinine 0.55mg/dL (0.76-1.27) Lactic Acid Level 2.1mmol/L (0.4-2.0) Magnesium Level 1.6mg/dL (1.6-2.6) Procalcitonin 0.08ng/mL (0.00-0.08) Microbiology 10/15/16 Blood Culture, Received Pending 10/16/16 MRSA (PCR) - Final, Complete 10/15/16 Urine Culture - Preliminary, Resulted No growth to date Result Diagram: 10/16/16 0530 10/16/16 05 Microbiology MRSA screen negative ADENOVIRUS RESPIRATORY PCR Final 10/16/16 Not Detected CORONOVIRUS 229E Final 10/16/16 Not Detected CORONOVIRUS HKU1 Final 10/16/16 Not Detected CORONOVIRUS NL63 Final 10/16/16 Not Detected CORONOVIRUS OC43 Final 10/16/16 Not Detected INFLUENZA A PCR Final 10/16/16 Not Detected INFLUENZA B PCR Final 10/16/16 Not Detected METAPNEUMOVIRUS PCR Final 10/16/16 Not Detected RHINOVIRUS OR ENTEROVIRUS PCR Final 10/16/16 Not Detected PARAINFLUENZA 1 PCR Final 10/16/16 Not Detected PARAINFLUENZA 2 PCR Final 10/16/16 Not Detected PARAINFLUENZA 3 PCR Final 10/16/16 Not Detected PARAINFLUENZA 4 PCR Final 10/16/16 Not Detected CHLAMDOPHILIA PNEUMONIAE PCR Final 10/16/16 Not Detected MYCOPLASMA PNEUMONIAE PCR Final 10/16/16 MYCO PNEUMONIAE PCR Not Detected Reference Interval Not Detected PACHECO STREP PNEUMONIAE AG URINE Final 10/16/16 STREP PNEUMO AG NEGATIVE X-Rays, CTs and MRIs PROCEDURE: X-RAY CHEST ONE VIEW, PORTABLE ([id number]) IMPRESSION: Cardiomegaly with increased pulmonary vascularity suggestive of edema. Increased retrocardiac opacity is present suggestive of focal edema or developing pneumonia/atelectasis. Dictated by: Jodie Merritt M.D. on 10/16/2016 at 9:09 Approved by: Jodie Merritt M.D. on 10/16/2016 at 9:10 PROCEDURE: CT BRAIN WITHOUT CONTRAST ([id number]) IMPRESSION: 1. No acute intracranial process. 2. Moderate atrophy and chronic microvascular ischemic changes. Dictated by: Jodie Merritt M.D. on 10/16/2016 at 7:43 Approved by: Jodie Merritt M.D. on 10/16/2016 at 7:45 PROCEDURE: X-RAY CHEST ONE VIEW, PORTABLE ([id number]) IMPRESSION: Left effusion with right basilar/retrocardiac opacities and increased pulmonary vascularity. Appearance is most suggestive of effusions with edema. By Basler/retrocardiac opacities can be warehouse representative of focal edema versus atelectasis/pneumonia. Dictated by: Jodie Merritt M.D. on 10/15/2016 at 21:43 Approved by: Jodie Merritt M.D. on 10/15/2016 at 21:46 Assessment & Plan Mr. 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 Initial evaluation included CT of brain with concern of his unique history of subdural hematomas, which was negative for any acute changes. Chest x-ray revealed moderate left- sided effusion with bibasilar retrocardiac opacities indicative of focal edema and/or atelectasis/pneumonia. With his elevation in white count to 13.2, pulse of 102, and lactic acid of 3.4, he was admitted for evaluation of treatment of sepsis, likely secondary to underlying pneumonia. Sepsis, acute, present on admission, under evaluation - On admit: P >90, WBC 13.2, lactic acid 3.4 - Likely secondary to underlying pneumonia, likely community-acquired, evidenced on XR at admission -Today, 10/16/2016 Lactic acid 2.1, pro calcitonin 0.08, WBC 18.9 - Treat underlying cause Community-acquired pneumonia, acute, present on admission, under therapy - XR admit: Left-sided effusion, bibasilar opacities, and retrocardiac opacities - Repeat CXR on 10/16/2016 shows Increased retrocardiac opacity is present suggestive of focal edema or developing pneumonia/atelectasis -Legionella, strep pneumonia urine, respiratory PCR were all negative -Awaiting sputum cultures, blood cultures - Monitor effusion, consider thoracentesis if no improvement or worsening, with diagnostic evaluation - DDx: Infxn, hemothorax, empyema, malignancy, transudative - Consider advanced imaging such as CT - Continue antibiotics: Levaquin, vanco - MRSA swab negative; DC vanco - Zosyn coverage for atypicals, as patient is diabetic, and new onset cough, which may have led to some mild aspiration - Please note, previous admission in 2011, patient had adverse reactions to ceftriaxone and azithromycin, defects noted as severe nausea and vomiting - Tailor coverage as results yield from pending studies -Patient complains of diffuse body aches, getting oxycodone and Tylenol when necessary for pain Elevated INR, acute, present on admission, monitoring - On admit: INR 8.03 - No vitamin K given in ED; no indication for urgent reversal - Likely secondary to underlying illness, in the setting of decreased appetite and intake - Patient reports compliance with Coumadin dosing and monthly monitoring in clinic - No signs of overt bleeding at time of admission, with scans including CT as noted above - We will continue to monitor with daily coag panel - Elevated INR likely contributing to scant hemoptysis, and hematuria Elevated lactic acid, likely acute, present on admission, under evaluation - On admit: Lactic acid 3.4 -Today, 10/16/2016 Lactic acid 2.1 - Likely secondary to underlying pneumonia/infection, and dehydration; no evidence of chronic kidney disease - Continue to monitor Diabetes mellitus, non-insulin using, chronic, presumed stable - Medium dose correctional; resume home dose when adequate appetite returns - A1c 08/19/2016: 7.1 Mechanical aortic valve on chronic anticoagulation therapy, currently unstable secondary to elevated INR - As noted above - Monitor History of coronary artery disease status post CABG 4 and drug-eluting stent placement - Resume home medications when reconciliation completed when appropriate - Echo 2014: EF 55-60, basal inferior wall hypokinesis, moderate mitral annular calcification, moderate mitral regurgitation, mechanical aortic valve, moderate to severe tricuspid regurgitation History of insomnia and anxiety, chronic, presumed stable - Resume home medication trazodone 50 mg, 1-2 tabs as needed for sleep Hematuria, reported as chronic, present on admission, presumed stable - On admit: UA revealed significant blood with color interference - 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 GI Prophylaxis: Not indicated VTE Prophylaxis: Theraputic Anticoag with Warfarin VTE Mechanical Devices: Intermittant Pneumatic CD Resuscitation Status: CPR: Attempt Resuscitation Attending Statement The patient was seen and examined together with Dr. Chambers on 10/16/2016 and I agree with the history, exam and plan as outlined in the note above. . Camilla Chambers DO Oct 16, 2016 10:28 Gianni Carrington MD Oct 17, 2016 07:48
--- NOTE | 2016-10-16 18:37 | NUR ---
Pain Pt pain level has been up to 9/10. Pt states that he feels achy all over. Pt administered 975mg of Tylenol with minimal to no relief. Pt administered 5mg Oxycodone PO. Upon reassessment, pt states a level of 5-6/10. Four hours after administration pt c/o of increasing pain with a level of 7/10. MD was notified and changed order to 5mg Oxycodone PRN q 4 hours. Pt administered Oxycodone, upon reassessment he stated a pain level of 4-5/10. Pt was administered 975mg of Tylenol PO. Upon reassessment he stated a pain level of 3/10 and stated that he was comfortable.
--- NOTE | 2016-10-16 21:30 | NUR ---
Transfer of care: Pt. care transferred to Anette Moss RN, report given. Pt. alert and oriented X3, however forgetful. No overt signs or symptoms of distress. Awaiting NPH insulin from pharmacy.
[2016-10-16] MEDS: levoFLOXacin Inj 750 MG in IV Premix 1 EACH IV SCH (22:33)
[2016-10-17] VITALS (11 sets, daily range): BP systolic 96–131; BP diastolic 66–78; PULSE 65–99; RESP 17–22; O2SAT 93–98
[2016-10-17] MEDS: Insulin Human NPH 100 Unit/mL Syringe SUBQ SCH ×3 (00:03→21:48)
[2016-10-17] MEDS ORDERED: Phytonadione (Adult) 10 mg/1 mL Inj PO ONE (00:20)
[2016-10-17 02:51] LABS: Mean Corpuscular Hemoglobin 29.6 pg (27.0-35.0); Mean Corpuscular Volume 91.8 fL (81-100)
[2016-10-17 03:09] LABS: INR 9.06 ratio
--- NOTE | 2016-10-17 06:20 | NUR ---
Mentation/Rest Assumed care ~2129. Pt. able to rest with eyes closed. Awakens with some confusion, however easily redirected. Noticeably forgetful. Indicates feeling better, some SOB still present. PT/INR drawn, values reported to Dr. Hurt. Prophylactic dose of 2.5mg Vit. K given. VSS. Tele: SR with IVCD, converted to Aflutter @ 0350, Dr. Hurt notified and presented at bedside to evaluate. Pt. denies any s/s. Report given to on coming RN.
[2016-10-17] MEDS: 0.9% Sodium Chloride 1,000 ML IV SCH ×2 (06:33→19:19)
[2016-10-17] MEDS: Piperacillin-Tazo 3.375 Gm Inj 3.375 GM in Dextrose 5% Minibag Plus 50 ML IV SCH ×3 (06:39→23:15)
[2016-10-17] MEDS: Insulin LISPRO Medium-Dose Scale SUBQ SCH ×4 (08:52→22:00)
--- NOTE | 2016-10-17 11:08 | PCM.PHAPRO ---
Progress Productive cough, with associated shortness of breath, hemoptysis, fatigue WARFARIN DOSING Maintenance dosing for mechanical heart valve INR Goal: 2.5-3.5 INR: 9.06, patient received 2.5mg phytonadione PO at 0100 today Continue to hold warfarin and monitor for bleeding Date 1-Sep 2-Sep 3-Sep INR 8.04 8.57 9.06 INR change 0.53 0.49 Warf Dose HOLD HOLD HOLD DI review Y Enox/Heparin N N antiplatelet tx [id number] HCT/PLT review 39.5/296 33.8/245 Bleeding? N Vitamin K? N 2.5MG PO Fouzia Meza Pharm.D Oct 17, 2016 11:08
[2016-10-17] MEDS: guaiFENesin 20 mg/mL 10 mL Syrup PO SCH ×3 (12:49→20:30)
--- NOTE | 2016-10-17 13:03 | NUR ---
Social Work- Initial Assessment/Multidisciplinary Rounds Data: See Initial Assessment and Advance Directive intervention for additional information. Pt is a 76 year old male admitted for pneumonia, sepsis per H&P. Pt's insurance is [facility] and PCP is Malgorzata Varner MD. Pt's readmit risk score is 2/8, low risk. Pt's NOK and d/c planning contact centre supervisor is Saskia Albright, . Pt discussed in multidisciplinary rounds, pt is anticipated to d/c in a couple days. No SW needs identified in rounds at this time, no SW orders received. SW met with pt and at bedside regarding d/c plan, SW role explained. Pt alert and oriented x3. Pt's capacity for self-care assessed. Pt resides in [place] with his spouse in a home with 14 stairs to enter and 17 internal stairs. Pt reports that once he enters his home he rarely exits due to stairs. Pt resides on the upper level, does not go into the basement. Pt uses a walker at baseline. Pt also has a bath bench, BSC, grab bars, electric scooter, wheelchair, and a raised toilet seat at home. Pt does not drive. 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 Pt has no LTC or VA benefits. Pt has Advance Directive in hard chart. Pt anticipated to d/c home with his to transport via POV, all agreeable to plan. SW provided d/c planning checklist and wrote phone number and plan on whiteboard. SW will continue to follow for d/c planning needs. Assessment: Pt who is not independent with ADLs and self-care. Pt's assists with all ADLs except feeding. manages medications. Plan: Pt anticipated to d/c home with his to transport via POV. No SW needs identified at this time, no orders received. SW will continue to follow for d/c planning needs . JOSEPHINE Sherman Addendum: 10/17/16 at 1309 by JUANITA ROOT Amended: Links added.
[2016-10-17] MEDS: Ondansetron 2 mg/mL 2 mL Inj IVPUSH PRN (14:33)
--- NOTE | 2016-10-17 14:50 | NUR ---
PT/INR; respiratory; nausea; tele PT 101.4, INR 9.06; md aware; no new orders at this time; holding coumadin. 4-5L NC sats low-mid 90's; encouraging pt. to frequently take big deep breaths and cough, pt. verbalizes/demonstrates understanding. MD ordered acapella/IS; receiving scheduled nebs. Pt. c/o nausea and had small amt vomiting while trying to cough up secretions, pt. states he starts feeling nauseous as soon as anything comes up; very minimal sputum production; moist, thick cough; coarse, decreased breath sounds. Tele sinus 80-90's; denies cp or pressure; A&Ox3, forgetful. at bedside assisting with care.
[2016-10-17] MEDS ORDERED: Vancomycin Serum Trough XX ONE (16:30)
--- NOTE | 2016-10-17 20:44 | PCM.PNMED ---
Subjective Date of Service Oct 17, 2016 Subjective overnight: Patient noted to have elevated INR overnight given 2.5 mg vitamin K overnight, no acute events otherwise noted Today: The patient states that he continues to have some shortness of breath and has an increased cough with sputum production. The patient states that overnight he had significant difficulty falling asleep after a blood draw at approximately 1 AM. Exam Vital Signs Vital Sign - Last Date Time Temp Pulse Resp B/P Pulse Ox O2 Delivery O2 Flow Rate FiO2 10/17/16 06:16 99 10/17/16 02:42 Supplement Oxygen 10/17/16 02:28 36.5 20 107/71 96 4.00 10/16/16 03:33 91 Intake and Output 10/16/16 10/16/16 10/17/16 Cumulative From/Thru 15:00 23:00 07:00 10/15/16 20:39 - 10/17/16 05:49 Intake Total 900 ml 1319 ml 4442 ml Output Total 250 ml 400 ml 930 ml Balance 650 ml 919 ml 3512 ml Intake Oral 300 ml 200 ml 613 ml IV Total 600 ml 1119 ml 3829 ml Output Urine Total 250 ml 400 ml 930 ml # Voids 2 # Bowel Movements 0 0 0 Exam General: Patient is ill-appearing but lying comfortably on bed, AAOX3, not in acute distress, cooperative and pleasant. Eyes: PERRLA, EOMI, no scleral icterus, noninjected conjunctiva, HENT: Normocephalic atraumatic, moist mucous membranes without central cyanosis , oropharynx with postnasal drip noted Neck: neck supple, non-tender, no lymphadenopathy, trachea midline, no JVD CV: regular rate and rhythm, s1 and s2 heard, no murmur, grade 3/6 systolic murmur Lungs: Decreased breath sounds bilaterally with coarse breath sounds noted bilaterally, no wheezing noted, no increased work of breathing, patient on supplemental oxygen Abdomen: normoactive bowel sounds on 4Q, soft, non-distended, non-tender to palpation, no organomegally, Skin: warm and dry Neuro: Grossly neurologically intact, able to move all extremities Psych: Normal mood and affect : No Manuel in place Lab and Diagnostics Result Diagram: 10/17/16 0245 10/17/16 0245 Microbiology MRSA screen negative ADENOVIRUS RESPIRATORY PCR Final 10/16/16 Not Detected CORONOVIRUS 229E Final 10/16/16 Not Detected CORONOVIRUS HKU1 Final 10/16/16 Not Detected CORONOVIRUS NL63 Final 10/16/16 Not Detected CORONOVIRUS OC43 Final 10/16/16 Not Detected INFLUENZA A PCR Final 10/16/16 Not Detected INFLUENZA B PCR Final 10/16/16 Not Detected METAPNEUMOVIRUS PCR Final 10/16/16 Not Detected RHINOVIRUS OR ENTEROVIRUS PCR Final 10/16/16 Not Detected PARAINFLUENZA 1 PCR Final 10/16/16 Not Detected PARAINFLUENZA 2 PCR Final 10/16/16 Not Detected PARAINFLUENZA 3 PCR Final 10/16/16 Not Detected PARAINFLUENZA 4 PCR Final 10/16/16 Not Detected CHLAMDOPHILIA PNEUMONIAE PCR Final 10/16/16 Not Detected MYCOPLASMA PNEUMONIAE PCR Final 10/16/16 MYCO PNEUMONIAE PCR Not Detected Reference Interval Not Detected PACHECO STREP PNEUMONIAE AG URINE Final 10/16/16 STREP PNEUMO AG NEGATIVE X-Rays, CTs and MRIs PROCEDURE: X-RAY CHEST ONE VIEW, PORTABLE ([id number]) IMPRESSION: Cardiomegaly with increased pulmonary vascularity suggestive of edema. Increased retrocardiac opacity is present suggestive of focal edema or developing pneumonia/atelectasis. Dictated by: Jodie Merritt M.D. on 10/16/2016 at 9:09 Approved by: Jodie Merritt M.D. on 10/16/2016 at 9:10 PROCEDURE: CT BRAIN WITHOUT CONTRAST ([id number]) IMPRESSION: 1. No acute intracranial process. 2. Moderate atrophy and chronic microvascular ischemic changes. Dictated by: Jodie Merritt M.D. on 10/16/2016 at 7:43 Approved by: Jodie Merritt M.D. on 10/16/2016 at 7:45 PROCEDURE: X-RAY CHEST ONE VIEW, PORTABLE ([id number]) IMPRESSION: Left effusion with right basilar/retrocardiac opacities and increased pulmonary vascularity. Appearance is most suggestive of effusions with edema. By Basler/retrocardiac opacities can be small business representative of focal edema versus atelectasis/pneumonia. Dictated by: Jodie Merritt M.D. on 10/15/2016 at 21:43 Approved by: Jodie Merritt M.D. on 10/15/2016 at 21:46 Assessment & Plan Mr. 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 Initial evaluation included CT of brain with concern of his unique history of subdural hematomas, which was negative for any acute changes. Chest x-ray revealed moderate left- sided effusion with bibasilar retrocardiac opacities indicative of focal edema and/or atelectasis/pneumonia. With his elevation in white count to 13.2, pulse of 102, and lactic acid of 3.4, he was admitted for evaluation of treatment of sepsis, likely secondary to underlying pneumonia. Sepsis, acute, present on admission, under evaluation - On admit: P >90, WBC 13.2, lactic acid 3.4 - Likely secondary to underlying pneumonia, likely community-acquired, evidenced on XR at admission -Today, 10/16/2016 Lactic acid 2.1, pro calcitonin 0.08, WBC 18.9 - Treat underlying cause Community-acquired pneumonia, acute, present on admission, under therapy - XR admit: Left-sided effusion, bibasilar opacities, and retrocardiac opacities - Repeat CXR on 10/16/2016 shows Increased retrocardiac opacity is present suggestive of focal edema or developing pneumonia/atelectasis -Legionella, strep pneumonia urine, respiratory PCR were all negative -Awaiting sputum cultures, blood cultures - Monitor effusion, consider thoracentesis if no improvement or worsening, with diagnostic evaluation - DDx: Infxn, hemothorax, empyema, malignancy, transudative - Consider advanced imaging such as CT - Continue antibiotics: Levaquin, vanco - MRSA swab negative; DC vanco - Zosyn coverage for atypicals, as patient is diabetic, and new onset cough, which may have led to some mild aspiration - Please note, previous admission in 2011, patient had adverse reactions to ceftriaxone and azithromycin, defects noted as severe nausea and vomiting - Tailor coverage as results yield from pending studies -Patient complains of diffuse body aches, getting oxycodone and Tylenol when necessary for pain - Guaifenesin initiated with incentive spirometry and a cappella device for improved sputum clearance - Patient has improved pro calcitonin and improved white blood cell count consistent with improving infectious etiology Elevated INR, acute, present on admission, monitoring - On admit: INR 8.03, INR increased to greater than 9 overnight - No vitamin K given in ED; patient given vitamin K 2.5 mg orally overnight - Likely secondary to underlying illness, in the setting of decreased appetite and intake - Patient reports compliance with Coumadin dosing and monthly monitoring in clinic - No signs of overt bleeding at time of admission, with scans including CT as noted above - We will continue to monitor with daily coag panel - Elevated INR likely contributing to scant hemoptysis, and hematuria Elevated lactic acid, likely acute, present on admission, under evaluation - On admit: Lactic acid 3.4 -Today, 10/16/2016 Lactic acid 2.1 - Likely secondary to underlying pneumonia/infection, and dehydration; no evidence of chronic kidney disease - Continue to monitor Diabetes mellitus, non-insulin using, chronic, presumed stable - Medium dose correctional; resume home dose when adequate appetite returns - A1c 08/19/2016: 7.1 Mechanical aortic valve on chronic anticoagulation therapy, currently unstable secondary to elevated INR - As noted above - Monitor History of coronary artery disease status post CABG 4 and drug-eluting stent placement - Resume home medications when reconciliation completed when appropriate - Echo 2014: EF 55-60, basal inferior wall hypokinesis, moderate mitral annular calcification, moderate mitral regurgitation, mechanical aortic valve, moderate to severe tricuspid regurgitation History of insomnia and anxiety, chronic, presumed stable - Resume home medication trazodone 50 mg, 1-2 tabs as needed for sleep Hematuria, reported as chronic, present on admission, presumed stable - On admit: UA revealed significant blood with color interference - 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 , and he has been worked up by outpatient urology - Monitor for any worsening, as patient's INR is significantly elevated PRN fever, bowel, nausea, pain DVT: SCDs only, patient is supratherapeutic on Coumadin Diet: Diabetic/heart GI: Not indicated IVF: NS100 Code: FULL CODE Disposition: Patient is likely to remain inpatient for several more days given infectious etiology and required O2 GI Prophylaxis: Not indicated VTE Prophylaxis: Theraputic Anticoag with Warfarin VTE Mechanical Devices: Intermittant Pneumatic CD Resuscitation Status: CPR: Attempt Resuscitation Attending Statement The patient was seen and examined together with Dr. Mirza on 10/17/2016 and I agree with the history, exam and plan as outlined in the note above. . Rishi Mirza DO Oct 17, 2016 07:41 Gianni Carrington MD Oct 18, 2016 13:53
[2016-10-17] MEDS: levoFLOXacin Inj 750 MG in IV Premix 1 EACH IV SCH (21:43)
[2016-10-17 21:45] LABS: INR 3.92 ratio
[2016-10-18] VITALS (17 sets, daily range): BP systolic 76–125; BP diastolic 47–82; PULSE 66–86; RESP 18–22; O2SAT 95–97
[2016-10-18] MEDS: guaiFENesin 20 mg/mL 10 mL Syrup PO SCH ×4 (05:57→21:37)
[2016-10-18] MEDS: Piperacillin-Tazo 3.375 Gm Inj 3.375 GM in Dextrose 5% Minibag Plus 50 ML IV SCH ×3 (06:20→23:30)
[2016-10-18 06:30] LABS: BASOPHILS % (AUTO) 0.3 % (0-3); EOSINOPHILS % (AUTO) 0.7 % (0-5); MONOCYTES % (AUTO) 6.5 % (4-12); Mean Corpuscular Hemoglobin 29.2 pg (27.0-35.0); Mean Corpuscular Volume 93.3 fL (81-100); NEUTROPHILS % (AUTO) 85.7 % (40-74); Platelet Count 265 bil/L (150-400)
--- NOTE | 2016-10-18 06:42 | NUR ---
AM lab/resp Awaiting morning PT/INR result. No s/s of bleeding. Unable to wean pt off O2 and continues on 5L with O2 saturation at 95%.
[2016-10-18] MEDS: Insulin Human NPH 100 Unit/mL Syringe SUBQ SCH ×2 (08:53→21:59)
[2016-10-18] MEDS: Insulin LISPRO Medium-Dose Scale SUBQ SCH ×4 (08:54→21:40)
[2016-10-18 09:53] LABS: INR 2.62 ratio
--- NOTE | 2016-10-18 12:19 | PCM.PHAPRO ---
Progress Date of Service: Oct 18, 2016 Warfarin Date 1-Oct 2-Oct 3-Oct 18-Oct INR 8.04 8.57 9.06 2.62 INR change 0.53 0.49 -6.44 Warf Dose HOLD HOLD HOLD 2.5 MG Gianni Gilman Oct 18, 2016 12:19
--- NOTE | 2016-10-18 14:16 | NUR ---
hypotension pt. hypotensive this afternoon; bp 76/51 hr 70's; pt. symptomatic, dizzy, "woozy". MD notified; 500 ml NS bolus given x1; bp at 1418 98/66 hr 81. Tele sinus 80-90's; psvt around 1300 hr 140's for 8.5 seconds per supervisor telephone clerks; MD aware. Continuing to monitor.
[2016-10-18] MEDS ORDERED: 0.9% Sodium Chloride 500 ML IV ONE (15:25)
--- NOTE | 2016-10-18 16:12 | NUR ---
Evaluation completed. Please go to "Notes" then click on "Assessments and Notes" (bottom left corner of screen). Then select appropriate discipline tab on top of screen.
--- NOTE | 2016-10-18 20:22 | PCM.PNMED ---
Subjective Date of Service Oct 18, 2016 Subjective Mr. 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 Initial evaluation included CT of brain with concern of his unique history of subdural hematomas, which was negative for any acute changes. Chest x-ray revealed moderate left- sided effusion with bibasilar retrocardiac opacities indicative of focal edema and/or atelectasis/pneumonia. With his elevation in white count to 13.2, pulse of 102, and lactic acid of 3.4, he was admitted for evaluation of treatment of sepsis, likely secondary to underlying pneumonia. Today, patient states that his breathing is slightly better. He continues to have cough, hemoptysis and hematuria. He states that his body aches have improved. However, he is still pretty mobile. We discussed getting evaluated by physical therapy today. He is agreeable. There were no acute events overnight. Review of systems, patient denies headaches, visual changes, chest pain, nausea , vomiting, abdominal pain and dysuria. Exam Vital Signs Vital Sign - Last Date Time Temp Pulse Resp B/P Pulse Ox O2 Delivery O2 Flow Rate FiO2 10/18/16 02:52 36.6 66 20 95/66 97 Nasal Cannula 5.00 10/16/16 03:33 91 Intake and Output 10/17/16 10/17/16 10/18/16 Cumulative From/Thru 15:00 23:00 07:00 10/15/16 20:39 - 10/18/16 05:07 Intake Total 1061 ml 400 ml 5903 ml Output Total 200 ml 150 ml 1280 ml Balance 861 ml 250 ml 4623 ml Intake Oral 150 ml 0 ml 763 ml IV Total 911 ml 400 ml 5140 ml Output Urine Total 200 ml 150 ml 1280 ml # Voids 2 # Bowel Movements 0 2 2 Exam General: Patient is ill-appearing but lying comfortably on bed, AAOX3, not in acute distress, cooperative and pleasant. HEENT: Scar on the skull with evidence of surgery, PERRLA, EOMI, no scleral icterus, noninjected conjunctiva, Neck: neck supple, non-tender, no lymphadenopathy, trachea midline, no JVD CV: regular rate and rhythm, s1 and s2 heard, grade 3/6 systolic murmur, and a click was heard Lungs: Decreased breath sounds bilaterally with crackles on the left base, no increased work of breathing, patient on supplemental oxygen Abdomen: normoactive bowel sounds on 4Q, soft, non-distended, non-tender to palpation, no organomegally, Skin: warm and dry Musculoskeletal: Weakness of upper and lower extremities bilaterally Neuro: Grossly neurologically intact, cranial nerves II through XII intact, no dyskinesia, dysmetria, or dysdiadochokinesia noted Psych: Normal mood and affect IVs and Medications Medications Reviewed: Medications were reviewed in detail Medications High-risk medications include trazodone Lab and Diagnostics Laboratory Tests Test 10/17/16 21:24 10/18/16 06:10 10/18/16 09:17 Hemoglobin 11.1g/dL (13.8-17.2) 10.5g/dL (13.8-17.2) Hematocrit 35.9% (41.0-50.0) 33.5% (41.0-50.0) Prothrombin Time 43.1sec (8.1-12.5) 28.6sec (8.1-12.5) Prothromb Time International Ratio 3.92ratio 2.62ratio White Blood Count 11.5th/mm3 (3.8-10.1) Red Blood Count 3.59mil/mm3 (4.40-5.80) Mean Corpuscular Volume 93.3fL (81-100) Mean Corpuscular Hemoglobin 29.2pg (27.0-35.0) Mean Corpuscular Hemoglobin Concent 31.3% (32.0-37.0) Red Cell Distribution Width 17.2% (12.3-15.4) Platelet Count 265bil/L (150-400) Neutrophils (%) (Auto) 85.7% (40-74) Lymphocytes (%) (Auto) 5.8% (14-46) Monocytes (%) (Auto) 6.5% (4-12) Eosinophils (%) (Auto) 0.7% (0-5) Basophils (%) (Auto) 0.3% (0-3) Sodium Level 140mEq/L (134-144) Potassium Level 5.5mEq/L (3.5-5.2) Chloride Level 106mEq/L (97-108) Carbon Dioxide Level 20mmol/L (18-29) Blood Urea Nitrogen 34mg/dL (8-27) Creatinine 1.10mg/dL (0.76-1.27) Estimat Glomerular Filtration Rate 70mL/min (>59) Glucose Level 162mg/dL (60-99) Calcium Level 8.8mg/dL (8.5-10.1) Total Bilirubin 0.7mg/dL (0.0-1.2) Aspartate Amino Transf (AST/SGOT) 13U/L (0-50) Alanine Aminotransferase (ALT/SGPT) 9U/L (0-44) Alkaline Phosphatase 90U/L (25-160) Total Protein 6.2g/dL (6.4-8.4) Albumin 2.9g/dL (3.4-5.0) Procalcitonin 0.13ng/mL (0.00-0.08) Microbiology 10/15/16 Blood Culture - Preliminary, Resulted No growth at 2 days; culture examined... 10/16/16 MRSA (PCR) - Final, Complete 10/15/16 Urine Culture - Final, Complete Mixed Urogenital Martell 10/16/16 Sputum Quality Screen - Final, Resulted 10/16/16 Sputum Culture - Preliminary, Resulted SCANT NORMAL MARTELL PRESENT Result Diagram: 10/17/16 6045 10/17/16 0245 Microbiology MRSA screen negative ADENOVIRUS RESPIRATORY PCR Final 10/16/16 Not Detected CORONOVIRUS 229E Final 10/16/16 Not Detected CORONOVIRUS HKU1 Final 10/16/16 Not Detected CORONOVIRUS NL63 Final 10/16/16 Not Detected CORONOVIRUS OC43 Final 10/16/16 Not Detected INFLUENZA A PCR Final 10/16/16 Not Detected INFLUENZA B PCR Final 10/16/16 Not Detected METAPNEUMOVIRUS PCR Final 10/16/16 Not Detected RHINOVIRUS OR ENTEROVIRUS PCR Final 10/16/16 Not Detected PARAINFLUENZA 1 PCR Final 10/16/16 Not Detected PARAINFLUENZA 2 PCR Final 10/16/16 Not Detected PARAINFLUENZA 3 PCR Final 10/16/16 Not Detected PARAINFLUENZA 4 PCR Final 10/16/16 Not Detected CHLAMDOPHILIA PNEUMONIAE PCR Final 10/16/16 Not Detected MYCOPLASMA PNEUMONIAE PCR Final 10/16/16 MYCO PNEUMONIAE PCR Not Detected Reference Interval Not Detected PACHECO STREP PNEUMONIAE AG URINE Final 10/16/16 STREP PNEUMO AG NEGATIVE X-Rays, CTs and MRIs PROCEDURE: X-RAY CHEST ONE VIEW, PORTABLE ([id number]) IMPRESSION: Cardiomegaly with increased pulmonary vascularity suggestive of edema. Increased retrocardiac opacity is present suggestive of focal edema or developing pneumonia/atelectasis. Dictated by: Jodie Merritt M.D. on 10/16/2016 at 9:09 Approved by: Jodie Merritt M.D. on 10/16/2016 at 9:10 PROCEDURE: CT BRAIN WITHOUT CONTRAST ([id number]) IMPRESSION: 1. No acute intracranial process. 2. Moderate atrophy and chronic microvascular ischemic changes. Dictated by: Jodie Merritt M.D. on 10/16/2016 at 7:43 Approved by: Jodie Merritt M.D. on 10/16/2016 at 7:45 PROCEDURE: X-RAY CHEST ONE VIEW, PORTABLE ([id number]) IMPRESSION: Left effusion with right basilar/retrocardiac opacities and increased pulmonary vascularity. Appearance is most suggestive of effusions with edema. By Basler/retrocardiac opacities can be truck sales representative of focal edema versus atelectasis/pneumonia. Dictated by: Jodie Merritt M.D. on 10/15/2016 at 21:43 Approved by: Jodie Merritt M.D. on 10/15/2016 at 21:46 Assessment & Plan Mr. 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 Initial evaluation included CT of brain with concern of his unique history of subdural hematomas, which was negative for any acute changes. Chest x-ray revealed moderate left- sided effusion with bibasilar retrocardiac opacities indicative of focal edema and/or atelectasis/pneumonia. With his elevation in white count to 13.2, pulse of 102, and lactic acid of 3.4, he was admitted for evaluation of treatment of sepsis, likely secondary to underlying pneumonia. Sepsis, acute, present on admission, under evaluation - On admit: P >90, WBC 13.2, lactic acid 3.4 - Likely secondary to underlying pneumonia, likely community-acquired, evidenced on CXR on admission - Treat underlying cause -Echocardiogram ordered to assess heart function Community-acquired pneumonia, acute, present on admission, under therapy - CXR admit: Left-sided effusion, bibasilar opacities, and retrocardiac opacities - Repeat CXR on 10/16/2016 shows Increased retrocardiac opacity is present suggestive of focal edema or developing pneumonia/atelectasis -Legionella, strep pneumonia urine, respiratory PCR were all negative - Sputum cultures and blood cultures negative - Monitor effusion, consider thoracentesis if no improvement or worsening, with diagnostic evaluation - DDx: Infection, hemothorax, empyema, malignancy, transudative - Consider advanced imaging such as CT - Continue antibiotics: Levaquin, vanco - MRSA swab negative; DC vanco - Zosyn coverage for atypicals, as patient is diabetic, and new onset cough, which may have led to some mild aspiration - Please note, previous admission in 2011, patient had adverse reactions to ceftriaxone and azithromycin, defects noted as severe nausea and vomiting - Tailor coverage as results yield from pending studies -Patient complains of diffuse body aches, getting oxycodone and Tylenol when necessary for pain - Guaifenesin initiated with incentive spirometry and a cappella device for improved sputum clearance - Patient has improved pro calcitonin and improved white blood cell count consistent with improving infectious etiology -Ordered speech evaluation and physical therapy Elevated INR, acute, present on admission, monitoring - On admit: INR 8.03, INR increased to greater than 9 and today decreased to 2.62 - No vitamin K given in ED; patient given vitamin K 2.5 mg total while on the floor - Likely secondary to underlying illness, in the setting of decreased appetite and intake - Patient reports compliance with Coumadin dosing and monthly monitoring in clinic - No signs of overt bleeding at time of admission, with scans including CT as noted above - We will continue to monitor with daily coag panel - Elevated INR likely contributing to scant hemoptysis, and hematuria -Continue Coumadin per pharmacy adjusted dose Hyperkalemia, acute, not present on admission, ongoing - Potassium today was 5.5 -We will discontinue enalapril -Check CMP again tomorrow Elevated lactic acid, likely acute, present on admission, under evaluation - On admit: Lactic acid 3.4 -10/17/16 Lactic acid decreased to 1.4 - Likely secondary to underlying pneumonia/infection, and dehydration; no evidence of chronic kidney disease - Continue to monitor Diabetes mellitus, non-insulin using, chronic, presumed stable - Medium dose correctional; resume home dose when adequate appetite returns - A1c 08/19/2016: 7.1 Mechanical aortic valve on chronic anticoagulation therapy, currently unstable secondary to elevated INR - As noted above - Monitor History of coronary artery disease status post CABG 4 and drug-eluting stent placement - Resume home medications when reconciliation completed when appropriate - Echo 2014: EF 55-60, basal inferior wall hypokinesis, moderate mitral annular calcification, moderate mitral regurgitation, mechanical aortic valve, moderate to severe tricuspid regurgitation History of insomnia and anxiety, chronic, presumed stable - Resume home medication trazodone 50 mg, 1-2 tabs as needed for sleep Hematuria, reported as chronic, present on admission, presumed stable - On admit: UA revealed significant blood with color interference - 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 , and he has been worked up by outpatient urology - Monitor for any worsening, as patient's INR is significantly elevated PRN fever, bowel, nausea, pain DVT: SCDs only, patient is supratherapeutic on Coumadin Diet: Diabetic/heart GI: Not indicated IVF: NS100 Code: FULL CODE Disposition: Patient is likely to remain inpatient for several more days given infectious etiology and required O2 Pain Evaluation: Adequate Pain Control GI Prophylaxis: Not indicated VTE Prophylaxis: Theraputic Anticoag with Warfarin VTE Mechanical Devices: Intermittant Pneumatic CD Resuscitation Status: CPR: Attempt Resuscitation Attending Statement The patient was seen and examined together with Dr. Chambers on 10/18/16 and I have added additional information to the note above. Camilla Chambers DO Oct 18, 2016 06:29 Marycruz Ivy DO Oct 24, 2016 14:51
[2016-10-18] MEDS: levoFLOXacin Inj 750 MG in IV Premix 1 EACH IV SCH (21:37)
[2016-10-19] VITALS (9 sets, daily range): BP systolic 104–139; BP diastolic 63–96; PULSE 73–83; RESP 16–22; O2SAT 94–97
[2016-10-19 04:28] LABS: BASOPHILS % (AUTO) 0.2 % (0-3); EOSINOPHILS % (AUTO) 0.8 % (0-5); MONOCYTES % (AUTO) 6.9 % (4-12); Mean Corpuscular Hemoglobin 29.9 pg (27.0-35.0); Mean Corpuscular Volume 94.8 fL (81-100); NEUTROPHILS % (AUTO) 85.7 % (40-74); Platelet Count 267 bil/L (150-400)
[2016-10-19] MEDS: guaiFENesin 20 mg/mL 10 mL Syrup PO SCH ×4 (06:21→21:00)
[2016-10-19] MEDS: Piperacillin-Tazo 3.375 Gm Inj 3.375 GM in Dextrose 5% Minibag Plus 50 ML IV SCH ×3 (06:21→21:30)
--- NOTE | 2016-10-19 06:33 | NUR ---
Hemodynamics Pt denies dizziness. VSS. No hypotension noted. SPO2 mid-high 90s on 3L NC. Pt continues to refuse to turn. He elects to lays on his back. Risks and benefits explained. He verbalizes understanding. VSS. No overt complications noted.
[2016-10-19] MEDS: Insulin LISPRO Medium-Dose Scale SUBQ SCH ×4 (08:39→21:39)
[2016-10-19 09:21] LABS: INR 2.34 ratio
[2016-10-19] MEDS: Insulin Human NPH 100 Unit/mL Syringe SUBQ SCH ×2 (09:28→21:38)
--- NOTE | 2016-10-19 10:14 | NUR ---
NUTRITION ASSESSMENT Assess: 76 YO M admitted for pneumonia, sepsis. Pt with fair PO intake. PMHX: Type 2 DM, HTN, hypercholesterolemia, obesity, CAD, NAYELI, subdural hematoma, craniotomy, GLF. DIET: Dysphagia mechanical. PO intake 50%. LABS: BUN 37, Glu 183, Alb 3.3 MEDICATIONS: Reviewed. Coumadin, Bacid, Florastor, Insulin, Senna. GI: 6 BM 9/4. SKIN: No issues noted. ANTHROPOMETRICS: Wt 110.2 kg, BMI 36.9 kg/m2, Admit wt: 107.5 kg. IBW: 70 kg. ESTIMATED NEEDS: BMI Calories: 0272-0605 kcal/day (20-22 kcal/kg BW) Protein: 84-105 g/day (1.2-1.5 g/kg IBW) NUTRITION DIAGNOSIS: 1) Chew/Swallow difficulty related to mild dysphagia as evidenced ST eval, need for dysphagia mechanical diet. INTERVENTION: 1) Diet advance per speech therapy. MONITOR/EVALUATE: PO intake, labs, GI/nutrition status. Follow per moderate nutrition risk guidelines.
--- NOTE | 2016-10-19 14:48 | NUR ---
Inpatient Wound Nurse Patient seen for pressure injury to sacrum/coccyx. Two open areas noted on L sacrum, stage 2 pressure injuries, each not more than 0.5 cm L x 0.5 cm W with no measurable depth. These appear as bright red skin breaks, without drainage, edges peeling. Surrounding tissue is maroon, appears as stage 1 pressure injury with sustained erythema. Patient's stated that he has been sitting in his recliner the past few weeks and noncompliant with suggestions to reposition. Wounds were covered with three different Mepilex when CWON assessed wounds. All were removed, area cleansed and blotted dry, then covered with one sacral Mepilex. Patient was tilted onto R hip and encouraged to side-lie and reposition frequently. Patient stated that he understood importance of repositioning but did not state intended compliance. "I'm more comfortable on my back." His took empty packaging and stated that she would purchase more dressings for home use and maintenance. Nursing staff may change Mepilex dressing PRN; pressure injury prevention protocols are already being followed, no new interventions recommended.
--- NOTE | 2016-10-19 16:04 | NUR ---
urine output/pain assumed care of patient from 1315 to 1515. medicated patient x 1 with prn oxycodone. patient states "it just helped a little". noted that patient voided 75ml of tea colored urine. noted that patient voided 125ml of urine earlier this shift as charted. primary rn yang saleh updated at 1515 when he resumed care of patient of patient urine color and amount and that patient with continued pain despite prn oxycodone. primary FRANCIE soria to notify
--- NOTE | 2016-10-19 16:29 | PCM.PROC ---
Procedure Note Date of Service: Oct 19, 2016 Procedure Details: Procedure: Osteopathic Manipulative Treatment Subjective: Patient is a 76-year-old male who is here for pneumonia and acute respiratory failure. The patient currently complains of neck pain and constipation. Patient states that his neck pain is chronic this currently a 6 out of 10 pain and nothing seems to relieve it. The patient also complains of constipation for the last 5 days and states that nothing has been able to relieve his constipation however he has not ask for any medications at this time. Risks and benefits of OMT were explained to the patient and verbal consent obtained. Osteopathic Structural Exam: Head: OA compression on the left Cervicals: C3-C7 ERlSl Thoracics: T5-T6 NRlSr Abdomen: Celiac ganglia/superior mesenteric/inferior mesenteric ganglia restriction Ribs: Restricted on the left 4-10 Pelvis: Posterior innominate on the right Sacrum: Right SI joint compression Upper extremities: Trapezius and latissimus dorsi hypertonicity on the right greater than left Lower extremities: Right abductor hypertonicity Patient responded well to treatment and stated that his neck pain was significantly relieved. We will continue to monitor the patient and treat as medically necessary. Osteopathic treatment modalities used: Myofascial release, Muscle Energy, BLT, rib raising, and soft tissue technique Marycruz Ivy DO Oct 19, 2016 16:29
--- NOTE | 2016-10-19 16:37 | NUR ---
Social Work: Continued Discharge Planning/Multidisciplinary Rounds D: Pt discussed in multidisciplinary rounds; the patient is not medically stable for discharge home. CM Order to arrange for skilled rehab placement has been placed. BRANDING MACHINE TENDER acknowledges order and met with the patient and his at bedside. SW role explained and discharge recommendations for SNF reviewed with the patient and his . Pt is adamant that he will not go to skilled rehab and states that he would prefer to have a home plan which includes home health. The patient's is in support of this and states that they have made arrangements with friends/neighbors to assist the patient getting into his home with his w/c. The patient is homebound and does not leave the house once inside. Their preference is for [facility]. BRANDING MACHINE TENDER informed the patient and that BRANDING MACHINE TENDER would address their preference for HH instead of SNF with their providers and will place referral if they agree. A: Pt who is currently declining SNF placement. P: Anticipate that the patient will discharge home. Pt is requesting HH through [facility]. BRANDING MACHINE TENDER will address this with attending provider tomorrow at multidisciplinary rounds and will coordinate services if a CM order is placed to do so. BRANDING MACHINE TENDER to continue to follow pt's clinical course and assess for further discharge needs. JOSEPHINE Hernandez
--- NOTE | 2016-10-19 17:57 | PCM.PNMED ---
Subjective Date of Service Oct 19, 2016 Subjective Mr. 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 Initial evaluation included CT of brain with concern of his unique history of subdural hematomas, which was negative for any acute changes. Chest x-ray revealed moderate left- sided effusion with bibasilar retrocardiac opacities indicative of focal edema and/or atelectasis/pneumonia. With his elevation in white count to 13.2, pulse of 102, and lactic acid of 3.4, he was admitted for evaluation of treatment of sepsis, likely secondary to underlying pneumonia. Today, patient notes that he did not sleep well last night. He was not able to participate with physical therapy yesterday because of his body aches and difficulty breathing. He notes that he has also been having constipation and has not had a bowel movement in 5 days. There were no acute events overnight. He was on 3 L of supplemental oxygen with saturations in the 90s. On review of systems, patient denies headaches, visual changes, chest pain, nausea, vomiting, abdominal pain and dysuria. Exam Vital Signs Vital Sign - Last Date Time Temp Pulse Resp B/P Pulse Ox O2 Delivery O2 Flow Rate FiO2 10/19/16 06:28 77 10/19/16 02:57 36.6 16 115/73 96 Nasal Cannula 3.00 10/16/16 03:33 91 Intake and Output 10/18/16 10/18/16 10/19/16 Cumulative From/Thru 15:00 23:00 07:00 10/15/16 20:39 - 10/19/16 06:23 Intake Total 1121 ml 294 ml 7318 ml Output Total 200 ml 1480 ml Balance 921 ml 294 ml 5838 ml Intake Oral 400 ml 1163 ml IV Total 721 ml 294 ml 6155 ml Output Urine Total 200 ml 1480 ml # Voids 2 # Bowel Movements 4 6 Exam General: Patient is ill-appearing but lying comfortably on bed, AAOX3, not in acute distress, cooperative and pleasant. HEENT: Scar on the skull with evidence of surgery, PERRLA, EOMI, no scleral icterus, noninjected conjunctiva, Neck: neck supple, non-tender, no lymphadenopathy, trachea midline, no JVD CV: regular rate and rhythm, s1 and s2 heard, grade 3/6 systolic murmur, and a click was heard Lungs: Decreased breath sounds bilaterally, no increased work of breathing, patient on 3L supplemental oxygen Abdomen: normoactive bowel sounds on 4Q, soft, non-distended, non-tender to palpation, no organomegally, Skin: warm and dry Musculoskeletal: Weakness of upper and lower extremities bilaterally Neuro: Grossly neurologically intact, cranial nerves II through XII intact, no dyskinesia, dysmetria, or dysdiadochokinesia noted Psych: Normal mood and affect IVs and Medications Medications Reviewed: Medications were reviewed in detail Lab and Diagnostics Laboratory Tests Test 10/19/16 04:20 10/19/16 08:00 10/19/16 08:48 White Blood Count 10.2th/mm3 (3.8-10.1) Red Blood Count 3.44mil/mm3 (4.40-5.80) Hemoglobin 10.3g/dL (13.8-17.2) Hematocrit 32.6% (41.0-50.0) Mean Corpuscular Volume 94.8fL (81-100) Mean Corpuscular Hemoglobin 29.9pg (27.0-35.0) Mean Corpuscular Hemoglobin Concent 31.6% (32.0-37.0) Red Cell Distribution Width 17.5% (12.3-15.4) Platelet Count 267bil/L (150-400) Neutrophils (%) (Auto) 85.7% (40-74) Lymphocytes (%) (Auto) 5.9% (14-46) Monocytes (%) (Auto) 6.9% (4-12) Eosinophils (%) (Auto) 0.8% (0-5) Basophils (%) (Auto) 0.2% (0-3) Lactic Acid Level 1.3mmol/L (0.4-2.0) Sodium Level 140mEq/L (134-144) Potassium Level 4.9mEq/L (3.5-5.2) Chloride Level 105mEq/L (97-108) Carbon Dioxide Level 18mmol/L (18-29) Blood Urea Nitrogen 37mg/dL (8-27) Creatinine 0.96mg/dL (0.76-1.27) Estimat Glomerular Filtration Rate 81mL/min (>59) Glucose Level 183mg/dL (60-99) Calcium Level 8.8mg/dL (8.5-10.1) Total Bilirubin 0.6mg/dL (0.0-1.2) Aspartate Amino Transf (AST/SGOT) 16U/L (0-50) Alanine Aminotransferase (ALT/SGPT) 12U/L (0-44) Alkaline Phosphatase 118U/L (25-160) Total Protein 6.1g/dL (6.4-8.4) Albumin 3.3g/dL (3.4-5.0) Procalcitonin 0.10ng/mL (0.00-0.08) Prothrombin Time 25.5sec (8.1-12.5) Prothromb Time International Ratio 2.34ratio Activated Partial Thromboplast Time 43.4sec (22.8-33.0) Microbiology 10/15/16 Blood Culture - Preliminary, Resulted No growth at 2 days; culture examined... 10/16/16 MRSA (PCR) - Final, Complete 10/15/16 Urine Culture - Final, Complete Mixed Urogenital Martell 10/16/16 Sputum Quality Screen - Final, Complete 10/16/16 Sputum Culture - Final, Complete LIGHT NORMAL MARTELL PRESENT Result Diagram: 10/19/16 0420 10/18/16 0610 Microbiology MRSA screen negative ADENOVIRUS RESPIRATORY PCR Final 10/16/16 Not Detected CORONOVIRUS 229E Final 10/16/16 Not Detected CORONOVIRUS HKU1 Final 10/16/16 Not Detected CORONOVIRUS NL63 Final 10/16/16 Not Detected CORONOVIRUS OC43 Final 10/16/16 Not Detected INFLUENZA A PCR Final 10/16/16 Not Detected INFLUENZA B PCR Final 10/16/16 Not Detected METAPNEUMOVIRUS PCR Final 10/16/16 Not Detected RHINOVIRUS OR ENTEROVIRUS PCR Final 10/16/16 Not Detected PARAINFLUENZA 1 PCR Final 10/16/16 Not Detected PARAINFLUENZA 2 PCR Final 10/16/16 Not Detected PARAINFLUENZA 3 PCR Final 10/16/16 Not Detected PARAINFLUENZA 4 PCR Final 10/16/16 Not Detected CHLAMDOPHILIA PNEUMONIAE PCR Final 10/16/16 Not Detected MYCOPLASMA PNEUMONIAE PCR Final 10/16/16 MYCO PNEUMONIAE PCR Not Detected Reference Interval Not Detected PACHECO STREP PNEUMONIAE AG URINE Final 10/16/16 STREP PNEUMO AG NEGATIVE X-Rays, CTs and MRIs PROCEDURE: X-RAY CHEST ONE VIEW, PORTABLE ([id number]) IMPRESSION: Cardiomegaly with increased pulmonary vascularity suggestive of edema. Increased retrocardiac opacity is present suggestive of focal edema or developing pneumonia/atelectasis. Dictated by: Jodie Merritt M.D. on 10/16/2016 at 9:09 Approved by: Jodie Merritt M.D. on 10/16/2016 at 9:10 PROCEDURE: CT BRAIN WITHOUT CONTRAST ([id number]) IMPRESSION: 1. No acute intracranial process. 2. Moderate atrophy and chronic microvascular ischemic changes. Dictated by: Jodie Merritt M.D. on 10/16/2016 at 7:43 Approved by: Jodie Merritt M.D. on 10/16/2016 at 7:45 PROCEDURE: X-RAY CHEST ONE VIEW, PORTABLE ([id number]) IMPRESSION: Left effusion with right basilar/retrocardiac opacities and increased pulmonary vascularity. Appearance is most suggestive of effusions with edema. By Basler/retrocardiac opacities can be veterans contact representative of focal edema versus atelectasis/pneumonia. Dictated by: Jodie Merritt M.D. on 10/15/2016 at 21:43 Approved by: Jodie Merritt M.D. on 10/15/2016 at 21:46 Assessment & Plan Mr. 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 Initial evaluation included CT of brain with concern of his unique history of subdural hematomas, which was negative for any acute changes. Chest x-ray revealed moderate left- sided effusion with bibasilar retrocardiac opacities indicative of focal edema and/or atelectasis/pneumonia. With his elevation in white count to 13.2, pulse of 102, and lactic acid of 3.4, he was admitted for evaluation of treatment of sepsis, likely secondary to underlying pneumonia. Sepsis, acute, present on admission, improved - On admit: P >90, WBC 13.2, lactic acid 3.4 -Lactic Acid normalized to 1.3, WBC down to 10.2 - Likely secondary to underlying pneumonia, likely community-acquired, evidenced on CXR at admission - Treat underlying cause -Echocardiogram ordered to assess heart function Community-acquired pneumonia, acute, present on admission, under therapy - CXR admit: Left-sided effusion, bibasilar opacities, and retrocardiac opacities - Repeat CXR on 10/16/2016 shows Increased retrocardiac opacity is present suggestive of focal edema or developing pneumonia/atelectasis -Legionella, strep pneumonia urine, respiratory PCR were all negative -Sputum cultures negative, blood cultures cultures negative - Monitor effusion, consider thoracentesis if no improvement or worsening, with diagnostic evaluation - DDx: Infection, hemothorax, empyema, malignancy, transudative - Consider advanced imaging such as CT - 10/19/16 Continue Zosyn but discontinue Levaquin and switch to Azithromycin 500 mg daily to cover atypicals -MRSA swab negative; DC vanco - Zosyn coverage for atypicals, as patient is diabetic, and new onset cough, which may have led to some mild aspiration - Please note, previous admission in 2011, patient had adverse reactions to ceftriaxone and azithromycin, defects noted as severe nausea and vomiting - Tailor coverage as results yield from pending studies -Patient complains of diffuse body aches, getting oxycodone and Tylenol when necessary for pain - Guaifenesin initiated with incentive spirometry and Acappella device for improved sputum clearance - Patient has improved pro calcitonin and improved white blood cell count consistent with improving infectious etiology -Ordered speech evaluation and physical therapy. Patient was unable to participate with PT yesterday Elevated INR, acute, present on admission, monitoring - On admit: INR 8.03, INR increased to greater than 9 and today decreased to 2.62 - No vitamin K given in ED; patient given vitamin K 2.5 mg total while on the floor - Likely secondary to underlying illness, in the setting of decreased appetite and intake - Patient reports compliance with Coumadin dosing and monthly monitoring in clinic - No signs of overt bleeding at time of admission, with scans including CT as noted above - We will continue to monitor with daily coag panel - Elevated INR likely contributing to scant hemoptysis, and hematuria -Continue Coumadin per pharmacy adjusted dose Hyperkalemia, acute, not present on admission, ongoing - Potassium today was 5.5 -We will discontinue enalapril -Potassium on 10/19/16 normalized to 4.9. Elevated lactic acid, likely acute, present on admission, under evaluation - On admit: Lactic acid 3.4 -10/17/16 Lactic acid decreased to 1.4 - Likely secondary to underlying pneumonia/infection, and dehydration; no evidence of chronic kidney disease Diabetes mellitus, non-insulin using, chronic, presumed stable - Medium dose correctional; resume home dose when adequate appetite returns - A1c 08/19/2016: 7.1 Mechanical aortic valve on chronic anticoagulation therapy, currently unstable secondary to elevated INR - As noted above - Monitor History of coronary artery disease status post CABG 4 and drug-eluting stent placement - Resume home medications when reconciliation completed when appropriate - Echo 2014: EF 55-60, basal inferior wall hypokinesis, moderate mitral annular calcification, moderate mitral regurgitation, mechanical aortic valve, moderate to severe tricuspid regurgitation History of insomnia and anxiety, chronic, presumed stable - Resume home medication trazodone 50 mg, 1-2 tabs as needed for sleep Hematuria, reported as chronic, present on admission, presumed stable - On admit: UA revealed significant blood with color interference - 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 We are continuing Zosyn and stopping Levofloxacin, but we are switching to azithromycin for atypical coverage. We are awaiting ECHO results. Encourage ambulation with physical therapy and watch patient overnight. Pain Evaluation: Adequate Pain Control GI Prophylaxis: Not indicated VTE Prophylaxis: Theraputic Anticoag with Warfarin VTE Mechanical Devices: Intermittant Pneumatic CD Resuscitation Status: CPR: Attempt Resuscitation Attending Statement The patient was seen and examined together with Dr. Chambers on 10/19/16 and I have added additional information to the note above. Camilla Chambers DO Oct 19, 2016 06:48 Marycruz Ivy DO Oct 24, 2016 15:04
--- NOTE | 2016-10-19 19:35 | NUR ---
BP Pt hypotensive on prior day shift per report. Pt's BP 111/63 this am prior to medication administration. Withheld Pt's am dose of hydralazine, made aware. Pt's subsequent BPs this shift: 106/67 and 114/96.
[2016-10-20] VITALS (9 sets, daily range): BP systolic 117–146; BP diastolic 61–84; PULSE 70–81; RESP 16–20; O2SAT 91–97
--- NOTE | 2016-10-20 04:51 | NUR ---
Pain/Confusion Pt stating pain /10 "from my head to my toes". Administered 5mg Oxycodone x1 this shift and effective this time. Pt had no further complaints. Pt awoke around 0030 yelling out is 's name. Pt was confused about where he was and how long he had been here. Able to reorient pt. Pt then requesting to call his around 0330 explained to pt that it was rather late and that we would help him call his at a more reasonable time around 0700, pt agreeable. VSS and Tele SR 70's to 80's.
[2016-10-20] MEDS: Piperacillin-Tazo 3.375 Gm Inj 3.375 GM in Dextrose 5% Minibag Plus 50 ML IV SCH ×3 (06:34→22:11)
[2016-10-20] MEDS: guaiFENesin 20 mg/mL 10 mL Syrup PO SCH ×4 (07:24→20:10)
[2016-10-20 07:38] LABS: BASOPHILS % (AUTO) 0.2 % (0-3); EOSINOPHILS % (AUTO) 1.1 % (0-5); MONOCYTES % (AUTO) 6.8 % (4-12); Mean Corpuscular Hemoglobin 29.8 pg (27.0-35.0); Mean Corpuscular Volume 93.7 fL (81-100); NEUTROPHILS % (AUTO) 85.2 % (40-74); Platelet Count 251 bil/L (150-400)
[2016-10-20 08:01] LABS: INR 3.46 ratio
[2016-10-20] MEDS: Insulin Human NPH 100 Unit/mL Syringe SUBQ SCH ×3 (08:30→20:17)
[2016-10-20] MEDS: Insulin LISPRO Medium-Dose Scale SUBQ SCH ×4 (09:14→20:16)
[2016-10-20] MEDS: Ondansetron 2 mg/mL 2 mL Inj IVPUSH PRN (10:33)
[2016-10-20] MEDS ORDERED: 0.9% Sodium Chloride 250 ML ONE (14:18)
--- NOTE | 2016-10-20 17:39 | NUR ---
Social Work: Continued Discharge Planning/Multidisciplinary Rounds D: Pt discussed with resident provider. The patient verbalizes that he cannot go home in his current condition and is willing to explore SNF options. DISTRICT ADMINISTRATOR provided the patient with a SNF CHOICE LIST and requested several facilities that would be his preference. At this time, no preferences have been provided to DISTRICT ADMINISTRATOR. PPW on Chart PASSR in folder. A: Pt who will require authorization from [employer] prior to d/c. P: Evolving; DISTRICT ADMINISTRATOR to refer to pt's preferences for SNF once pt's provides them to DISTRICT ADMINISTRATOR. DISTRICT ADMINISTRATOR to follow up with patient tomorrow. JOSEPHINE Hernandez
--- NOTE | 2016-10-20 17:42 | PCM.PNMED ---
Subjective Date of Service Oct 20, 2016 Subjective Mr. 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 Today, patient states that he doesn't feel well overall. He couldn't really participate with physical therapy because of his body aches. We discussed discharge planning and safety concerns because he is not very steady and mobile. We talked about SNF VS home health services as well as have private home care. Initially, patient was really against going to a SNF because or prior experiences. However, after considering expenses related to Private home care, patient became more receptive to the idea. Overnight, nursing reports that patient awoke around 0030 yelling out is 's name. Pt was confused about where he was and how long he had been here but he was able to be re-oriented afterwards. On ROS, patient reports body aches and mild SOB. He denies chest pain, nausea and vomiting. Exam Vital Signs Vital Sign - Last Date Time Temp Pulse Resp B/P Pulse Ox O2 Delivery O2 Flow Rate FiO2 10/20/16 04:06 36.9 80 18 128/80 97 Nasal Cannula 2.00 10/16/16 03:33 91 Intake and Output 10/19/16 10/19/16 10/20/16 Cumulative From/Thru 15:00 23:00 07:00 10/15/16 20:39 - 10/20/16 05:42 Intake Total 900 ml 8538 ml Output Total 250 ml 2030 ml Balance 650 ml 6508 ml Intake Oral 760 ml 2243 ml IV Total 140 ml 6295 ml Output Urine Total 250 ml 2030 ml # Voids 2 # Bowel Movements 6 Exam General: Patient is ill-appearing but lying comfortably on bed, AAOX3, mild distress, cooperative . HEENT: Scar on the skull with evidence of surgery, PERRLA, EOMI, no scleral icterus, noninjected conjunctiva, Neck: neck supple, non-tender, no lymphadenopathy, trachea midline, no JVD CV: regular rate and rhythm, s1 and s2 heard, grade 3/6 systolic murmur, and a click was heard Lungs: Decreased breath sounds bilaterally, no increased work of breathing, patient on 3L supplemental oxygen Abdomen: normoactive bowel sounds on 4Q, soft, non-distended, non-tender to palpation, no organomegally, Skin: warm and dry Musculoskeletal: Weakness of upper and lower extremities bilaterally Neuro: Grossly neurologically intact, cranial nerves II through XII intact, no dyskinesia, dysmetria, or dysdiadochokinesia noted Psych: Normal mood and affect IVs and Medications Medications Reviewed: Medications were reviewed in detail Medications High risk medications include oxycodone Lab and Diagnostics Laboratory Tests Test 10/20/16 07:25 White Blood Count 11.1th/mm3 (3.8-10.1) Red Blood Count 3.66mil/mm3 (4.40-5.80) Hemoglobin 10.9g/dL (13.8-17.2) Hematocrit 34.3% (41.0-50.0) Mean Corpuscular Volume 93.7fL (81-100) Mean Corpuscular Hemoglobin 29.8pg (27.0-35.0) Mean Corpuscular Hemoglobin Concent 31.8% (32.0-37.0) Red Cell Distribution Width 17.1% (12.3-15.4) Platelet Count 251bil/L (150-400) Neutrophils (%) (Auto) 85.2% (40-74) Lymphocytes (%) (Auto) 6.2% (14-46) Monocytes (%) (Auto) 6.8% (4-12) Eosinophils (%) (Auto) 1.1% (0-5) Basophils (%) (Auto) 0.2% (0-3) Prothrombin Time 38.0sec (8.1-12.5) Prothromb Time International Ratio 3.46ratio Sodium Level 143mEq/L (134-144) Potassium Level 4.8mEq/L (3.5-5.2) Chloride Level 105mEq/L (97-108) Carbon Dioxide Level 23mmol/L (18-29) Blood Urea Nitrogen 31mg/dL (8-27) Creatinine 0.90mg/dL (0.76-1.27) Estimat Glomerular Filtration Rate 88mL/min (>59) Glucose Level 116mg/dL (60-99) Lactic Acid Level 1.6mmol/L (0.4-2.0) Calcium Level 9.1mg/dL (8.5-10.1) Total Bilirubin 0.7mg/dL (0.0-1.2) Aspartate Amino Transf (AST/SGOT) 24U/L (0-50) Alanine Aminotransferase (ALT/SGPT) 14U/L (0-44) Alkaline Phosphatase 116U/L (25-160) Total Protein 6.1g/dL (6.4-8.4) Albumin 3.3g/dL (3.4-5.0) Microbiology 10/15/16 Blood Culture - Preliminary, Resulted No growth at 2 days; culture examined... 10/16/16 MRSA (PCR) - Final, Complete 10/15/16 Urine Culture - Final, Complete Mixed Urogenital Martell 10/16/16 Sputum Quality Screen - Final, Complete 10/16/16 Sputum Culture - Final, Complete LIGHT NORMAL MARTELL PRESENT Result Diagram: 10/19/16 0420 10/19/16 0800 Microbiology MRSA screen negative ADENOVIRUS RESPIRATORY PCR Final 10/16/16 Not Detected CORONOVIRUS 229E Final 10/16/16 Not Detected CORONOVIRUS HKU1 Final 10/16/16 Not Detected CORONOVIRUS NL63 Final 10/16/16 Not Detected CORONOVIRUS OC43 Final 10/16/16 Not Detected INFLUENZA A PCR Final 10/16/16 Not Detected INFLUENZA B PCR Final 10/16/16 Not Detected METAPNEUMOVIRUS PCR Final 10/16/16 Not Detected RHINOVIRUS OR ENTEROVIRUS PCR Final 10/16/16 Not Detected PARAINFLUENZA 1 PCR Final 10/16/16 Not Detected PARAINFLUENZA 2 PCR Final 10/16/16 Not Detected PARAINFLUENZA 3 PCR Final 10/16/16 Not Detected PARAINFLUENZA 4 PCR Final 10/16/16 Not Detected CHLAMDOPHILIA PNEUMONIAE PCR Final 10/16/16 Not Detected MYCOPLASMA PNEUMONIAE PCR Final 10/16/16 MYCO PNEUMONIAE PCR Not Detected Reference Interval Not Detected PACHECO STREP PNEUMONIAE AG URINE Final 10/16/16 STREP PNEUMO AG NEGATIVE X-Rays, CTs and MRIs PROCEDURE: X-RAY CHEST ONE VIEW, PORTABLE ([id number]) IMPRESSION: Cardiomegaly with increased pulmonary vascularity suggestive of edema. Increased retrocardiac opacity is present suggestive of focal edema or developing pneumonia/atelectasis. Dictated by: Jodie Merritt M.D. on 10/16/2016 at 9:09 Approved by: Jodie Merritt M.D. on 10/16/2016 at 9:10 PROCEDURE: CT BRAIN WITHOUT CONTRAST ([id number]) IMPRESSION: 1. No acute intracranial process. 2. Moderate atrophy and chronic microvascular ischemic changes. Dictated by: Jodie Merritt M.D. on 10/16/2016 at 7:43 Approved by: Jodie Merritt M.D. on 10/16/2016 at 7:45 PROCEDURE: X-RAY CHEST ONE VIEW, PORTABLE ([id number]) IMPRESSION: Left effusion with right basilar/retrocardiac opacities and increased pulmonary vascularity. Appearance is most suggestive of effusions with edema. By Basler/retrocardiac opacities can be front desk representative of focal edema versus atelectasis/pneumonia. Dictated by: Jodie Merritt M.D. on 10/15/2016 at 21:43 Approved by: Jodie Merritt M.D. on 10/15/2016 at 21:46 Assessment & Plan Mr. 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 Initial evaluation included CT of brain with concern of his unique history of subdural hematomas, which was negative for any acute changes. Chest x-ray revealed moderate left- sided effusion with bibasilar retrocardiac opacities indicative of focal edema and/or atelectasis/pneumonia. With his elevation in white count to 13.2, pulse of 102, and lactic acid of 3.4, he was admitted for evaluation of treatment of sepsis, likely secondary to underlying pneumonia. We are continuing to treat him with antibiotics. We have consulted social work for possible SNF placement , as patient is now more amenable to that idea. Sepsis, acute, present on admission, improved - On admit: P >90, WBC 13.2, lactic acid 3.4 -Lactic Acid normalized to 1.3, WBC down to 10.2 - Likely secondary to underlying pneumonia, likely community-acquired, evidenced on XR at admission - Treat underlying cause -Echocardiogram ordered to assess heart function Community-acquired pneumonia, acute, present on admission, under therapy - CXR admit: Left-sided effusion, bibasilar opacities, and retrocardiac opacities - Repeat CXR on 10/16/2016 shows Increased retrocardiac opacity is present suggestive of focal edema or developing pneumonia/atelectasis -Legionella, strep pneumonia urine, respiratory PCR were all negative - Sputum cultures and blood cultures negative - Monitor effusion, consider thoracentesis if no improvement or worsening, with diagnostic evaluation - DDx: Infection, hemothorax, empyema, malignancy, transudative - Consider advanced imaging such as CT - 10/19/16 Continue Zosyn but discontinue Levaquin and switch to Azithromycin 500 mg daily to cover atypicals -MRSA swab negative; DC vanco - Zosyn coverage for atypicals, as patient is diabetic, and new onset cough, which may have led to some mild aspiration - Please note, previous admission in 2011, patient had adverse reactions to ceftriaxone and azithromycin, defects noted as severe nausea and vomiting - Tailor coverage as results yield from pending studies -Patient complains of diffuse body aches, getting oxycodone and Tylenol when necessary for pain - Guaifenesin initiated with incentive spirometry and Acappella device for improved sputum clearance - Patient has improved pro calcitonin and improved white blood cell count consistent with improving infectious etiology -Ordered speech evaluation and physical therapy. Patient was unable to participate with PT yesterday Elevated INR, acute, present on admission, monitoring - On admit: INR 8.03, INR increased to greater than 9 and today decreased to 2.62 - No vitamin K given in ED; patient given vitamin K 2.5 mg total while on the floor - Likely secondary to underlying illness, in the setting of decreased appetite and intake - Patient reports compliance with Coumadin dosing and monthly monitoring in clinic - No signs of overt bleeding at time of admission, with scans including CT as noted above - We will continue to monitor with daily coag panel - Elevated INR likely contributing to scant hemoptysis, and hematuria -Continue Coumadin per pharmacy adjusted dose Hyperkalemia, acute, not present on admission, ongoing - Potassium today was 5.5 -We will discontinue enalapril -Potassium on 10/19/16 normlaized to 4.9. Elevated lactic acid, likely acute, present on admission, under evaluation - On admit: Lactic acid 3.4 -10/17/16 LActic acid decreaed to 1.4 - Likely secondary to underlying pneumonia/infection, and dehydration; no evidence of chronic kidney disease Diabetes mellitus, non-insulin using, chronic, presumed stable - Medium dose correctional; resume home dose when adequate appetite returns - A1c 08/19/2016: 7.1 Mechanical aortic valve on chronic anticoagulation therapy, currently unstable secondary to elevated INR - As noted above - Monitor History of coronary artery disease status post CABG 4 and drug-eluting stent placement - Resume home medications when reconciliation completed when appropriate - Echo 2014: EF 55-60, basal inferior wall hypokinesis, moderate mitral annular calcification, moderate mitral regurgitation, mechanical aortic valve, moderate to severe tricuspid regurgitation History of insomnia and anxiety, chronic, presumed stable - Resume home medication trazodone 50 mg, 1-2 tabs as needed for sleep Hematuria, reported as chronic, present on admission, presumed stable - On admit: UA revealed significant blood with color interference - 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 We are continuing Zosyn and azithromycin. We are awaiting ECHO results. Encourage ambulation with physical therapy. We have consulted social work for possible SNF placement, as patient is now more amenable to that idea Pain Evaluation: Adequate Pain Control GI Prophylaxis: Not indicated VTE Prophylaxis: Theraputic Anticoag with Warfarin VTE Mechanical Devices: Intermittant Pneumatic CD Resuscitation Status: CPR: Attempt Resuscitation Attending Statement The patient was seen and examined together with Dr. Chambers on 10/20/16 and I have added additional information to the note above. Camilla Chambers DO Oct 20, 2016 06:30 Marycruz Ivy DO Oct 24, 2016 15:11
--- NOTE | 2016-10-20 18:30 | NUR ---
Constipation/Nausea/Appetite Pt has had no BM recorded for 5 days. Pt reports feeling constipated, nauseous, and has no appetite. Pt given PRN miralax and senna with am medications. Pt reported increased nausea later in the shift and Pt given PRN zofran without much effect, Pt had to sit on side of bed with emesis basin retching. Pt was able to have a medium sized BM later in the shift and reported that nausea and appetite changes were slightly improved, Pt had some bites of dinner.
[2016-10-21] VITALS (8 sets, daily range): BP systolic 113–146; BP diastolic 68–78; PULSE 70–82; RESP 16–22; O2SAT 90–96
[2016-10-21] MEDS: guaiFENesin 20 mg/mL 10 mL Syrup PO SCH ×4 (05:23→20:30)
[2016-10-21] MEDS: Piperacillin-Tazo 3.375 Gm Inj 3.375 GM in Dextrose 5% Minibag Plus 50 ML IV SCH ×2 (05:29→14:34)
--- NOTE | 2016-10-21 05:51 | NUR ---
Pain/Mentation Pt states at shift start that he is experiencing 8/10 generalized pain. Tylenol given with good result. Rested for extended period with eyes closed, woke confused and in continent. Reorientation without difficulty. Returned to rest, and awoke again grunting. Indicated pain has returned 8/10, administered Oxycodone x1 which was effective. Rested quietly, indicates no further needs. VSS. Tele: SR 70's-80's, IVCD, with PAC & PVC's.
[2016-10-21] MEDS: Insulin LISPRO Medium-Dose Scale SUBQ SCH ×4 (07:30→20:25)
[2016-10-21 07:38] LABS: BASOPHILS % (AUTO) 0.4 % (0-3); EOSINOPHILS % (AUTO) 1.3 % (0-5); MONOCYTES % (AUTO) 7.3 % (4-12); Mean Corpuscular Hemoglobin 30.1 pg (27.0-35.0); Mean Corpuscular Volume 95.5 fL (81-100); NEUTROPHILS % (AUTO) 82.7 % (40-74); Platelet Count 235 bil/L (150-400)
[2016-10-21] MEDS: Insulin Human NPH 100 Unit/mL Syringe SUBQ SCH ×2 (07:51→20:21)
[2016-10-21 08:50] LABS: INR 4.13 ratio
--- NOTE | 2016-10-21 09:08 | NUR ---
RESIDENTIAL TRANSFER : Gave access and faxed facesheet to [facility] per GEOGRAPHICAL HISTORIAN and MD orders. Marked urgency on cover sheet as patient may be ready today.
--- NOTE | 2016-10-21 10:30 | NUR ---
Social Work: Readiness for Discharge/Multidisciplinary Rounds D: Pt discussed in multidisciplinary rounds with resident provider. The patient will require further cardio workup. He is not medically stable for discharge. Pt has identified that he will need skilled rehab at time of discharge. CIVIL CAD TECH has met with the patient at bedside, provided SNF CHOICE LIST. At this time, his only preference is for [facility]. Rough Carpenter has placed referral to [facility] and is aware that the patient is [employer] and will require authorization. PPW on chart. PASSR in folder. A: Pt who will likely require skilled rehab at time of discharge P: Evolving; [facility] is reviewing for possible admission. Pt will require [employer] authorization prior to SNF discharge. CIVIL CAD TECH to continue to follow to assess for further unmet needs. JOSEPHINE Hernandez
--- NOTE | 2016-10-21 17:42 | NUR ---
Activity Pt again experienced dizziness while working with PT this am despite having a BP WNL, see PT note for details. Pt was not dizzy when sitting up on the edge of the bed later in the shift which is again very similar to yesterday's shift.
--- NOTE | 2016-10-21 20:10 | PCM.PNMED ---
Subjective Date of Service Oct 21, 2016 Subjective Mr. 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 Today, patient continues to complain of body aches all over. He says that he was unable to participate in physical therapy. He reports some shortness of breath and continues to need oxygen. He has some nausea but denies vomiting. In addition, he continues to have decreased appetite. Overnight, patient continued to report body aches. Per nursing, he woke up with some confusion but was able to re-orient easily. On ROS, patient denies headaches, visual changes, chills. He reports diffuse body aches and feeling weak. Exam Vital Signs Vital Sign - Last Date Time Temp Pulse Resp B/P Pulse Ox O2 Delivery O2 Flow Rate FiO2 10/21/16 04:25 Supplement Oxygen 10/21/16 03:14 36.3 70 16 127/70 90 3.00 10/16/16 03:33 91 Intake and Output 10/20/16 10/20/16 10/21/16 Cumulative From/Thru 15:00 23:00 07:00 10/15/16 20:39 - 10/21/16 06:25 Intake Total 144 ml 226 ml 9308 ml Output Total 200 ml 2505 ml Balance 144 ml 26 ml 6803 ml Intake Oral 100 ml 2743 ml IV Total 144 ml 126 ml 6565 ml Output Urine Total 200 ml 2505 ml # Voids 3 # Bowel Movements 6 Exam General: Patient is ill-appearing but lying comfortably on bed, AAOX3, mild distress, cooperative . HEENT: Scar on the skull with evidence of previous surgery, PERRLA, EOMI, no scleral icterus, noninjected conjunctiva, Neck: neck supple, non-tender, no lymphadenopathy, trachea midline, no JVD CV: regular rate and rhythm, s1 and s2 heard, grade 3/6 systolic murmur, and a click was heard Lungs: Decreased breath sounds bilaterally, no increased work of breathing, patient on 3L supplemental oxygen Abdomen: normoactive bowel sounds on 4Q, soft, non-distended, non-tender to palpation, no organomegally, Skin: warm and dry Musculoskeletal: Weakness of upper and lower extremities bilaterally Neuro: Grossly neurologically intact, cranial nerves II through XII intact, no dyskinesia, dysmetria, or dysdiadochokinesia noted Psych: Normal mood and affect IVs and Medications Medications Reviewed: Medications were reviewed in detail Lab and Diagnostics Laboratory Tests Test 10/21/16 07:25 10/21/16 08:19 White Blood Count 8.5th/mm3 (3.8-10.1) Red Blood Count 3.56mil/mm3 (4.40-5.80) Hemoglobin 10.7g/dL (13.8-17.2) Hematocrit 34.0% (41.0-50.0) Mean Corpuscular Volume 95.5fL (81-100) Mean Corpuscular Hemoglobin 30.1pg (27.0-35.0) Mean Corpuscular Hemoglobin Concent 31.5% (32.0-37.0) Red Cell Distribution Width 17.1% (12.3-15.4) Platelet Count 235bil/L (150-400) Neutrophils (%) (Auto) 82.7% (40-74) Lymphocytes (%) (Auto) 8.1% (14-46) Monocytes (%) (Auto) 7.3% (4-12) Eosinophils (%) (Auto) 1.3% (0-5) Basophils (%) (Auto) 0.4% (0-3) Sodium Level 144mEq/L (134-144) Potassium Level 4.5mEq/L (3.5-5.2) Chloride Level 104mEq/L (97-108) Carbon Dioxide Level 23mmol/L (18-29) Blood Urea Nitrogen 25mg/dL (8-27) Creatinine 0.97mg/dL (0.76-1.27) Estimat Glomerular Filtration Rate 80mL/min (>59) Glucose Level 102mg/dL (60-99) Lactic Acid Level 0.9mmol/L (0.4-2.0) Calcium Level 9.0mg/dL (8.5-10.1) Total Bilirubin 0.6mg/dL (0.0-1.2) Aspartate Amino Transf (AST/SGOT) 13U/L (0-50) Alanine Aminotransferase (ALT/SGPT) 14U/L (0-44) Alkaline Phosphatase 122U/L (25-160) Total Protein 5.9g/dL (6.4-8.4) Albumin 3.3g/dL (3.4-5.0) Procalcitonin 0.04ng/mL (0.00-0.08) Prothrombin Time 45.5sec (8.1-12.5) Prothromb Time International Ratio 4.13ratio Microbiology 10/15/16 Blood Culture - Final, Complete NO GROWTH AFTER 5 DAYS 10/16/16 MRSA (PCR) - Final, Complete 10/15/16 Urine Culture - Final, Complete Mixed Urogenital Martell 10/16/16 Sputum Quality Screen - Final, Complete 10/16/16 Sputum Culture - Final, Complete LIGHT NORMAL MARTELL PRESENT Result Diagram: 10/20/1672410/20/16724 Microbiology MRSA screen negative ADENOVIRUS RESPIRATORY PCR Final 10/16/16 Not Detected CORONOVIRUS 229E Final 10/16/16 Not Detected CORONOVIRUS HKU1 Final 10/16/16 Not Detected CORONOVIRUS NL63 Final 10/16/16 Not Detected CORONOVIRUS OC43 Final 10/16/16 Not Detected INFLUENZA A PCR Final 10/16/16 Not Detected INFLUENZA B PCR Final 10/16/16 Not Detected METAPNEUMOVIRUS PCR Final 10/16/16 Not Detected RHINOVIRUS OR ENTEROVIRUS PCR Final 10/16/16 Not Detected PARAINFLUENZA 1 PCR Final 10/16/16 Not Detected PARAINFLUENZA 2 PCR Final 10/16/16 Not Detected PARAINFLUENZA 3 PCR Final 10/16/16 Not Detected PARAINFLUENZA 4 PCR Final 10/16/16 Not Detected CHLAMDOPHILIA PNEUMONIAE PCR Final 10/16/16 Not Detected MYCOPLASMA PNEUMONIAE PCR Final 10/16/16 MYCO PNEUMONIAE PCR Not Detected Reference Interval Not Detected PACHECO STREP PNEUMONIAE AG URINE Final 10/16/16 STREP PNEUMO AG NEGATIVE X-Rays, CTs and MRIs PROCEDURE: X-RAY CHEST ONE VIEW, PORTABLE ([id number]) IMPRESSION: Cardiomegaly with increased pulmonary vascularity suggestive of edema. Increased retrocardiac opacity is present suggestive of focal edema or developing pneumonia/atelectasis. Dictated by: Jodie Merritt M.D. on 10/16/2016 at 9:09 Approved by: Jodie Merritt M.D. on 10/16/2016 at 9:10 PROCEDURE: CT BRAIN WITHOUT CONTRAST ([id number]) IMPRESSION: 1. No acute intracranial process. 2. Moderate atrophy and chronic microvascular ischemic changes. Dictated by: Jodie Merritt M.D. on 10/16/2016 at 7:43 Approved by: Jodie Merritt M.D. on 10/16/2016 at 7:45 PROCEDURE: X-RAY CHEST ONE VIEW, PORTABLE ([id number]) IMPRESSION: Left effusion with right basilar/retrocardiac opacities and increased pulmonary vascularity. Appearance is most suggestive of effusions with edema. By Basler/retrocardiac opacities can be outbound call center representative of focal edema versus atelectasis/pneumonia. Dictated by: Jodie Merritt M.D. on 10/15/2016 at 21:43 Approved by: Jodie Merritt M.D. on 10/15/2016 at 21:46 Cardiac Echo Impressions Echocardiogram on 10/18/2016 interpretation summary The left ventricle is normal in size. The ejection fraction is estimated to be 40-45%. Compared to the prior exam, the left ventricular function is reduced. There appears to be severe hypokinesis of base to mid inferior wall extending into the base to mid postero lateral wall. Right ventricle is moderately dilated. Right ventricular systolic function is mild to moderately reduced. There is moderate to severe mitral annular calcification. No significant mitral valve stenosis. There is moderate to severe mitral regurgitation. The mitral valve mean gradient is 5 mmHg. Compared to the prior echo study, there has been an increase in the severity of mitral regurgitation. There is a mechanical aortic valve. The prosthetic aortic valve is well seated. The peak aortic velocity is 2.48 m/s. The peak aortic velocity on the previous exam was 3.53 m/s. The aortic valve mean gradient is 13.5 mmHg. There is severe tricuspid regurgitation. Compared to the prior echo exam, there has been an increase in TR severity. The right ventricular systolic pressure is estimated at 58 mmHg assuming a right atrial pressure of 15 mmHg. Compared to the prior echo exam, there has been an increase in the severity of pulmonary hypertension. There is a moderately large left-sided pleural effusion. Assessment & Plan Mr. 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 Initial evaluation included CT of brain with concern of his unique history of subdural hematomas, which was negative for any acute changes. Chest x-ray revealed moderate left- sided effusion with bibasilar retrocardiac opacities indicative of focal edema and/or atelectasis/pneumonia. With his elevation in white count to 13.2, pulse of 102, and lactic acid of 3.4, he was admitted for evaluation of treatment of sepsis, likely secondary to underlying pneumonia. We are continuing to treat him with antibiotics. Social work has been consulted and we are arranging SNF placement for patient. Sepsis, acute, present on admission, improved - On admit: P >90, WBC 13.2, lactic acid 3.4 -Lactic Acid normalized to 1.3, WBC down to 10.2 - Likely secondary to underlying pneumonia, likely community-acquired, evidenced on XR at admission - Treat underlying cause Community-acquired pneumonia, acute, present on admission, under therapy - XR admit: Left-sided effusion, bibasilar opacities, and retrocardiac opacities - Repeat CXR on 10/16/2016 shows Increased retrocardiac opacity is present suggestive of focal edema or developing pneumonia/atelectasis -Legionella, strep pneumonia urine, respiratory PCR were all negative -Sputum cultures, blood cultures negative - Monitor effusion, consider thoracentesis if no improvement or worsening, with diagnostic evaluation - DDx: Infection, hemothorax, empyema, malignancy, transudative - Consider advanced imaging such as CT - 10/19/16 Continue Zosyn but discontinue Levaquin and switch to Azithromycin 500 mg daily to cover atypicals -MRSA swab negative; DC vanco - Zosyn coverage for atypicals, as patient is diabetic, and new onset cough, which may have led to some mild aspiration -Patient has received a 7 day course of antibiotics thus far, will continue to complete 10 day course - Please note, previous admission in 2011, patient had adverse reactions to ceftriaxone and azithromycin, defects noted as severe nausea and vomiting -Patient complains of diffuse body aches, getting oxycodone and Tylenol when necessary for pain - Guaifenesin initiated with incentive spirometry and Acappella device for improved sputum clearance - Patient has improved pro calcitonin and improved white blood cell count consistent with improving infectious etiology -Ordered speech evaluation and physical therapy. Patient was unable to participate with PT today. Speech therapy recommends advancing to soft mechanical diet but reports that patient states he has no appetite Pulmonary Hypertension and severe tricuspid valve regurge, present on admission -Described on ECHO results above -Consulted cardiology, Dr. Nguyen -He recommended out patient follow-up with himself as this is his clinic patient Elevated INR, acute, present on admission, monitoring - On admit: INR 8.03, INR increased to greater than 9 and today decreased to 2.62 - No vitamin K given in ED; patient given vitamin K 2.5 mg total while on the floor - Likely secondary to underlying illness, in the setting of decreased appetite and intake - Patient reports compliance with Coumadin dosing and monthly monitoring in clinic - No signs of overt bleeding at time of admission, with scans including CT as noted above - We will continue to monitor with daily coag panel - Elevated INR likely contributing to scant hemoptysis, and hematuria -Continue Coumadin per pharmacy adjusted dose Hyperkalemia, acute, not present on admission, ongoing - Potassium today was 5.5 -We will discontinue enalapril -Potassium on 10/19/16 normalized to 4.9. Elevated lactic acid, likely acute, present on admission, resolved - On admit: Lactic acid 3.4 -10/17/16 Lactic acid decreased to 1.4 - Likely secondary to underlying pneumonia/infection, and dehydration; no evidence of chronic kidney disease Diabetes mellitus, non-insulin using, chronic, presumed stable - Medium dose correctional; resume home dose when adequate appetite returns - A1c 08/19/2016: 7.1 Mechanical aortic valve on chronic anticoagulation therapy, currently unstable secondary to elevated INR - As noted above - Monitor History of coronary artery disease status post CABG 4 and drug-eluting stent placement - Resume home medications when reconciliation completed when appropriate - Echo 2015: EF 55-60, basal inferior wall hypokinesis, moderate mitral annular calcification, moderate mitral regurgitation, mechanical aortic valve, moderate to severe tricuspid regurgitation History of insomnia and anxiety, chronic, presumed stable - Resume home medication trazodone 50 mg, 1-2 tabs as needed for sleep Hematuria, reported as chronic, present on admission, presumed stable - On admit: UA revealed significant blood with color interference - 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 We are continuing Zosyn and azithromycin. Encourage ambulation with physical therapy. We have consulted social work for possible SNF placement. GI Prophylaxis: Not indicated VTE Prophylaxis: Theraputic Anticoag with Warfarin VTE Mechanical Devices: Intermittant Pneumatic CD Resuscitation Status: CPR: Attempt Resuscitation Attending Statement The patient was seen and examined together with Dr. Chambers on 10/21/16 and I have added additional information to the note above. Camilla Chambers DO Oct 21, 2016 06:51 Marycruz Ivy DO Oct 22, 2016 19:02
[2016-10-22 03:00] VITALS: PULSE 77
[2016-10-22] MEDS: Piperacillin-Tazo 3.375 Gm Inj 3.375 GM in Dextrose 5% Minibag Plus 50 ML IV SCH (03:01)
[2016-10-22 03:14] VITALS: BP 148/76; PULSE 90; RESP 20; O2SAT 95
--- NOTE | 2016-10-22 05:44 | NUR ---
Pain/Skin Pt c/o pain 10/10 at beginning of shift, administered 5mg oxycodone and effective pt able to rest for most of shift. Around 0300 pt stating pain 5/10 and requesting more pain medications. Administered 5mg Oxycodone and effective. Pt able to rest again. Pt Mepilex on sacrum was soiled from stool, changed and sacrum was intact. VSS and Tele SR
[2016-10-22] MEDS: guaiFENesin 20 mg/mL 10 mL Syrup PO SCH ×2 (06:00→11:00)
[2016-10-22] MEDS: Insulin LISPRO Medium-Dose Scale SUBQ SCH ×2 (07:30→13:22)
[2016-10-22 08:00] VITALS: PULSE 89
--- NOTE | 2016-10-22 08:00 | NUR ---
Resting Pt awake and resting in room at change of shift. Pt ready for breakfast, states he is leaving today for [facility]. Offered to reposition pt, pt refused, educted pt. Care continues.
[2016-10-22 08:12] LABS: BASOPHILS % (AUTO) 0.4 % (0-3); EOSINOPHILS % (AUTO) 1.3 % (0-5); MONOCYTES % (AUTO) 5.8 % (4-12); Mean Corpuscular Hemoglobin 29.9 pg (27.0-35.0); Mean Corpuscular Volume 96.2 fL (81-100); NEUTROPHILS % (AUTO) 83.9 % (40-74); Platelet Count 237 bil/L (150-400)
[2016-10-22 08:40] VITALS: BP 141/76; PULSE 78; RESP 18; O2SAT 94
[2016-10-22 08:44] LABS: INR 4.66 ratio
[2016-10-22] MEDS: Insulin Human NPH 100 Unit/mL Syringe SUBQ SCH (09:14)
--- NOTE | 2016-10-22 10:57 | NUR ---
SHELTER TRANSFER : Spoke with John at [facility] and we will be working on BLS transport for 1400 Updated CONSTRUCTION ADMINISTRATIVE ASSISTANT Addendum: 10/22/16 at 1148 by PATRICK GARCIA Scheduled BLS transport for 1400 via [facility] , spoke with John and he is aware of transport. Updated CONSTRUCTION ADMINISTRATIVE ASSISTANT and PCS form completed.
[2016-10-22] MEDS ORDERED: Piperacillin-Tazo 3.375 Gm Inj 3.375 GM in Dextrose 5% Minibag Plus 50 ML IV SCH (11:00)
--- NOTE | 2016-10-22 11:25 | PCM.PHAPRO ---
Progress Warfarin WARFARIN Indication: Mechanical aortic valve with CAD Home dose: 5mg/d Recent dosing: Date 1-Sep 2-Sep 3-Sep 4-Sep 5-Sep 6-Sep 7-Sep 8-Sep INR 8.04 8.57 9.06 2.62 2.34 3.46 4.13 4.66 INR change 0.53 0.49 -6.44 -0.28 1.12 0.67 0.53 Warf Dose HOLD HOLD HOLD 2.5 MG 3mg HOLD HOLD HOLD p/ Continue to hold. INR daily. Iftikhar Parish Pharm D Oct 22, 2016 11:25
[2016-10-22 12:09] VITALS: BP 138/77; PULSE 78; RESP 20; O2SAT 94
--- NOTE | 2016-10-22 12:39 | PCM.DIMED ---
Camilla Chambers DO 10/22/16 1100: Discharge Instructions Date of Service Oct 22, 2016 Dates of Hospitalization Oct 15, 2016 at 23:18 Discharge Diagnosis Discharge Diagnosis Sepsis, resolved Community-acquired pneumonia Pulmonary Hypertension and severe tricuspid valve regurge Elevated INR, resolved Hyperkalemia, resolved Elevated lactic acid, resolved Diabetes mellitus, non-insulin using, chronic, presumed stable Mechanical aortic valve on chronic anticoagulation therapy History of coronary artery disease status post CABG 4 and drug-eluting stent placement History of insomnia and anxiety Hematuria Medication Instructions Additional med instructions Because your INR was elevated, we will hold your warfarin for now and [facility] will check your INR regularly and resume it when necessary Diet Discharge Diet: Heart Healthy Activity Discharge Activity: Other (Long Term Facility Physical Therapy) Call your provider Call your provider for: Fever or Chills, Shortness of breath, Bleeding, Chest pain, Vomitting, Excessive diarrhea, Weakness (unilateral) Patient Instructions Patient Instructions You presented to the Emergency Room after feeling weak, fatigue, short of breath , profusely sweaty, and urinating and spitting up blood for over a week. We did a CT of your brain because you have a history of a brain bleed and that was negative for any changes. We did a Chest X-ray which showed some changes that are consistent with pneumonia. Some of your lab work also showed that their might be an active infection going on. As a result, we started you on antibiotics and you have received 7 days worth thus far. You will need to take 3 more days of antibiotics to finish a 10 day course. As for your heart, the most recent Echocardiogram (ultrasound of your heart) showed some worsening of heart function. We consulted cardiology, Dr. Nguyen, and he wasn't too concerned of anything going acutely that needs to be addressed during this hospital visit. He recommended that you follow-up with him as an outpatient. He also suggested that we get rid of one of your blood pressure medications, Hydralazine. In addition, because your INR was really high when you presented to the hospital , we had to stop your warfarin and resumed it when it was appropriate. Today, your INR was high again so we are going to be holding your warfarin and [facility] will check your INR regularly and resume your warfarin when it is appropriate. As a result of your pneumonia, you have been feeling weak and bed-bound. As we discussed, you will be going to [facility] so that you can get Physical Therapy and Occupational therapy to help you get stronger, recondition and become more mobile again. Because you continue to need oxygen, we will send you to [facility] with supplemental oxygen and they can wean you off of it as your oxygenation improves further. Follow-up plan Patient will follow-up with Dr. Nguyen in a week. He will also follow-up with his primary care provider in 2 weeks. Follow-up Provider: Devante Whipple MD Follow-up with PCP in: 1 week Provider: Malgorzata Varner MD Follow-up in: 2 weeks Additional Information Patient with be discharged to [facility] for physical therapy and occupational therapy to help him regain strength and recondition. Marycruz Ivy DO 10/22/16 1853: Discharge Instructions Attending's Statement The patient was seen and examined together with Dr. Chambers on 10/22/16 and I agree with the history, exam and plan as outlined in the note above. Camilla Chambers DO Oct 22, 2016 11:00 Marycruz Ivy DO Oct 22, 2016 18:53
[2016-10-22] MEDS ORDERED: AMOX1TAB11 PO (12:42)
[2016-10-22] MEDS ORDERED: Amoxicillin-Clav 500-125 mg Tablet PO ONE (13:35)
--- NOTE | 2016-10-22 14:24 | NUR ---
Discharge to [facility] Pt discharged to [facility] via cabulance at approximately 1410. Report give to Nurse Tovar. Nurse Tovar asking for a prescription for pain medications to be sent. MD notified. Pt escorted by and transport team. Pt left with all personal belongings.
--- NOTE | 2016-10-22 14:30 | PCM.PROC ---
Procedure Note Date of Service: Oct 22, 2016 Provider and Manager Documentation: Dr. Trish Zhao (Medical Student) Alondra (Medical Student) Procedure Details: Procedure: Osteopathic Manipulative Treatment Subjective: Patient was seen and examined again for neck pain. The patient states that after his last treatment that he felt much improved however he wanted to have a second treatment as he can feel some of his neck pain returning. Risks and benefits of OMT were explained to the patient and verbal consent obtained. Osteopathic Structural Exam: Head: OA compression on the right Cervicals: C3-C5 ESRl Thoracics: T2 to T3 neutral rotated left side bent right Abdomen: Left diaphragm restriction Ribs: Restricted on the right greater than left Pelvis: Anterior right innominate Sacrum: Right SI joint compression Upper extremities: Levator scapula hypertonicity on the right greater than left , Latissimus dorsi hypertonicity and trapezius hypertonicity on the right greater than left Lower extremities: Negative psoas tender points Patient responded well to treatment. Patient stated that his pain significantly improved status post treatment. Osteopathic treatment modalities used: Myofascial release, Muscle Energy, BLT, rib raising, and soft tissue technique Marycruz Ivy DO Oct 22, 2016 14:30
--- NOTE | 2016-10-22 14:33 | NUR ---
JAIL TRANSFER : Called and spoke with Gayathri Ventura at [facility] and asked for review for [facility]Way. She will call back with acceptance or denial Addendum: 10/22/16 at 1438 by PATRICK GARCIA CM Gayathri Estrada approved patient for transfer to SNF today and she is aware it is [facility]
[2016-10-22] MEDS ORDERED: OXYC1TAB24 PO (15:07)
--- NOTE | 2016-10-22 19:37 | PCM.DC.MED ---
Discharge Summary Date of Service Oct 22, 2016 Dates of Hospitalization Date of Hospital Admission Oct 15, 2016 at 23:18 Date of Discharge: Oct 22, 2016 Providers: Admitting Physician: Jhony Dumont MD Primary Care Physician: Malgorzata Varner MD Attending Physician: Marycruz Ivy DO Diagnosis at Time of Discharge Diagnosis at Time of Discharge Sepsis, resolved Community-acquired pneumonia Pulmonary Hypertension and severe tricuspid valve regurge Elevated INR, resolved Hyperkalemia, resolved Elevated lactic acid, resolved Diabetes mellitus, non-insulin using, chronic, presumed stable Mechanical aortic valve on chronic anticoagulation therapy History of coronary artery disease status post CABG 4 and drug-eluting stent placement History of insomnia and anxiety Hematuria Consultations Cardiology, was consulted Procedures XRay, CTs & MRIs PROCEDURE: X-RAY CHEST ONE VIEW, PORTABLE ([id number]) IMPRESSION: Cardiomegaly with increased pulmonary vascularity suggestive of edema. Increased retrocardiac opacity is present suggestive of focal edema or developing pneumonia/atelectasis. Dictated by: Jodie Merritt M.D. on 10/16/2016 at 9:09 Approved by: Jodie Merritt M.D. on 10/16/2016 at 9:10 PROCEDURE: CT BRAIN WITHOUT CONTRAST ([id number]) IMPRESSION: 1. No acute intracranial process. 2. Moderate atrophy and chronic microvascular ischemic changes. Dictated by: Jodie Merritt M.D. on 10/16/2016 at 7:43 Approved by: Jodie Merritt M.D. on 10/16/2016 at 7:45 PROCEDURE: X-RAY CHEST ONE VIEW, PORTABLE ([id number]) IMPRESSION: Left effusion with right basilar/retrocardiac opacities and increased pulmonary vascularity. Appearance is most suggestive of effusions with edema. By Basler/retrocardiac opacities can be registered representative of focal edema versus atelectasis/pneumonia. Dictated by: Jodie Merritt M.D. on 10/15/2016 at 21:43 Approved by: Jodie Merritt M.D. on 10/15/2016 at 21:46 Cardiac Echo Impression Echocardiogram on 10/18/2016 interpretation summary The left ventricle is normal in size. The ejection fraction is estimated to be 40-45%. Compared to the prior exam, the left ventricular function is reduced. There appears to be severe hypokinesis of base to mid inferior wall extending into the base to mid postero lateral wall. Right ventricle is moderately dilated. Right ventricular systolic function is mild to moderately reduced. There is moderate to severe mitral annular calcification. No significant mitral valve stenosis. There is moderate to severe mitral regurgitation. The mitral valve mean gradient is 5 mmHg. Compared to the prior echo study, there has been an increase in the severity of mitral regurgitation. There is a mechanical aortic valve. The prosthetic aortic valve is well seated. The peak aortic velocity is 2.48 m/s. The peak aortic velocity on the previous exam was 3.53 m/s. The aortic valve mean gradient is 13.5 mmHg. There is severe tricuspid regurgitation. Compared to the prior echo exam, there has been an increase in TR severity. The right ventricular systolic pressure is estimated at 58 mmHg assuming a right atrial pressure of 15 mmHg. Compared to the prior echo exam, there has been an increase in the severity of pulmonary hypertension. There is a moderately large left-sided pleural effusion. Brief History Mr. 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 Initial evaluation included CT of brain with concern of his unique history of subdural hematomas, which was negative for any acute changes. Chest x-ray revealed moderate left- sided effusion with bibasilar retrocardiac opacities indicative of focal edema and/or atelectasis/pneumonia. With his elevation and white count to 13.2, pulse of 102, and lactic acid of 3.4, he was admitted for evaluation of treatment of sepsis, likely secondary to underlying pneumonia. Urinary cultures and blood cultures were obtained and currently pending. Initial imaging included chest x-ray which revealed left effusion with right basilar and retrocardiac opacities and increased pulmonary vascularity, with the appearance most suggestive of effusions with edema, which can also be registered representative of focal edema versus atelectasis versus pneumonia. CT of the head was also obtained, which did not reveal any acute intracranial traumatic abnormality. Initial therapies included Levaquin 150 mg and cefepime 2 g, and 1 liter normal saline. Patient received a 7 day course of antibiotics and was discharged with 3 more days of oral antibiotics in order to complete a 10 day course. Hospital Course Mr. 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 Initial evaluation included CT of brain with concern of his unique history of subdural hematomas, which was negative for any acute changes. Chest x-ray revealed moderate left- sided effusion with bibasilar retrocardiac opacities indicative of focal edema and/or atelectasis/pneumonia. With his elevation in white count to 13.2, pulse of 102, and lactic acid of 3.4, he was admitted for evaluation of treatment of sepsis, likely secondary to underlying pneumonia. Patient has been discharged to [facility] for PT, OT to help with strengthening and reconditioning. Sepsis, acute, present on admission, improved - On admit: P >90, WBC 13.2, lactic acid 3.4 -Lactic Acid normalized to 1.3, WBC down to 10.2 - Likely secondary to underlying pneumonia, likely community-acquired, evidenced on XR at admission - Treated underlying cause, pneumonia Community-acquired pneumonia, acute, present on admission, under therapy - XR admit: Left-sided effusion, bibasilar opacities, and retrocardiac opacities - Repeat CXR on 10/16/2016 shows Increased retrocardiac opacity is present suggestive of focal edema or developing pneumonia/atelectasis -Legionella, strep pneumonia urine, respiratory PCR were all negative -Awaiting sputum cultures, blood cultures - Monitor effusion, consider thoracentesis if no improvement or worsening, with diagnostic evaluation - DDx: Infxn, hemothorax, empyema, malignancy, transudative - Consider advanced imaging such as CT - 10/19/16 Continue Zosyn but discontinue Levaquin and switch to Azithromycin 500 mg daily to cover atypicals -MRSA swab negative; DC vanco - Zosyn coverage for atypicals, as patient is diabetic, and new onset cough, which may have led to some mild aspiration -Patient has received a 7 day course of antibiotics thus far, will continue to complete 10 day course. Dischrge on Augmentin 500 mg po bid -Patient complains of diffuse body aches, getting oxycodone and Tylenol when necessary for pain - Guaifenesin was initiated with incentive spirometry and Acappella device for improved sputum clearance - Patient has improved pro calcitonin and improved white blood cell count consistent with improving infectious etiology -Patient was discharge to Assisted Facility for PT/OT Pulmonary Hypertension and severe tricuspid valve regurge, present on admission -Described on ECHO results above -Consulted cardiology, Dr. Whipple -He recommended out patient follow-up with himself as this is his clinic patient Elevated INR, acute, present on admission, monitoring - On admit: INR 8.03, INR increased to greater than 9 and today decreased to 2.62 - No vitamin K given in ED; patient given vitamin K 2.5 mg total while on the floor - Likely secondary to underlying illness, in the setting of decreased appetite and intake - Patient reports compliance with Coumadin dosing and monthly monitoring in clinic - No signs of overt bleeding at time of admission, with scans including CT as noted above - We will continue to monitor with daily coag panel - Elevated INR likely contributing to scant hemoptysis, and hematuria -INR on discharge was 4.66. Instructions to hold Coumadin. Check INR at SNF regularly and resume Coumadin as indicated Hyperkalemia, acute, not present on admission, resolved - Potassium today was 5.5 -We discontinued enalapril -Potassium on 10/19/16 normlaized to 4.9. Elevated lactic acid, likely acute, present on admission, resolved - On admit: Lactic acid 3.4 -10/17/16 LActic acid decreaed to 1.4 - Likely secondary to underlying pneumonia/infection, and dehydration; no evidence of chronic kidney disease Diabetes mellitus, non-insulin using, chronic, presumed stable - Medium dose correctional; resume home dose when adequate appetite returns - A1c 08/19/2016: 7.1 Mechanical aortic valve on chronic anticoagulation therapy, currently unstable secondary to elevated INR - As noted above - Monitored History of coronary artery disease status post CABG 4 and drug-eluting stent placement - Resume home medications when reconciliation completed when appropriate - Echo 2015: EF 55-60, basal inferior wall hypokinesis, moderate mitral annular calcification, moderate mitral regurgitation, mechanical aortic valve, moderate to severe tricuspid regurgitation History of insomnia and anxiety, chronic, presumed stable - Resume home medication trazodone 50 mg, 1-2 tabs as needed for sleep Hematuria, reported as chronic, present on admission, presumed stable - On admit: UA revealed significant blood with color interference - 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 Patient was discharged to SNF for PT/OT. Encourage ambulation. Exam Vital Signs (Last) Date Time Temp Pulse Resp B/P Pulse Ox O2 Delivery O2 Flow Rate FiO2 10/22/16 12:09 36.3 78 20 138/77 94 Nasal Cannula 3.00 10/16/16 03:33 91 Exam General: Patient is ill-appearing but lying comfortably in bed, AAOX3, mild distress, cooperative . HEENT: Scar on the skull with evidence of previous surgery, PERRLA, EOMI, no scleral icterus, noninjected conjunctiva, Neck: neck supple, non-tender, no lymphadenopathy, trachea midline, no JVD CV: regular rate and rhythm, s1 and s2 heard, grade 3/6 systolic murmur, and a click was heard Lungs: Decreased breath sounds bilaterally, no increased work of breathing, patient on 3L supplemental oxygen Abdomen: normoactive bowel sounds on 4Q, soft, non-distended, non-tender to palpation, no organomegally, Skin: warm and dry Musculoskeletal: Weakness of upper and lower extremities bilaterally Neuro: Grossly neurologically intact, cranial nerves II through XII intact, no dyskinesia, dysmetria, or dysdiadochokinesia noted Psych: Normal mood and affect Test 10/15/16 21:11 10/15/16 22:27 10/15/16 22:35 10/16/16 05:30 Troponin T 0.030ug/L (0.0-0.011) Pro-B-Type Natriuretic Peptide 2309pg/mL (0-486) Urine Legionella pneumophilia Ag Negative (Negative) Urine Color Bloody (YELLOW) Urine Appearance Cloudy (CLEAR,HAZY) Urine pH Color interference Urine Specific [place] 1.026 (1.003-1.035) Urine Protein Color interferencemg/dL Urine Glucose (UA) Color interferencemg/dL Urine Ketones Color interferencemg/dL Urine Occult Blood Color interference Urine Nitrite Color interference Urine Bilirubin Color interference Urine Urobilinogen Color interferencemg/dL Urine Leukocyte Esterase Color interference Urine RBC Packed/hpf (0-2) Urine WBC >50/hpf (0-5) Urine Epithelial Cells Few/hpf (NONE-MOD) Urine Crystals None seen (NONE SEEN) Urine Bacteria Moderate/hpf (NONE-FEW) Urine Hyaline Casts None/lpf (NONE) Urine Granular Casts None seen (NONE SEEN) Urine Waxy Casts None seen (NONE SEEN) Urine Red Blood Cell Casts None seen (NONE SEEN) Urine White Blood Cell Casts None seen (NONE SEEN) Urine Mucus Present (None Seen) Urine Trichomonas None seen (NONE SEEN) Urine Yeast None (NONE SEEN) Urinalysis Comment None Urine Culture Reflexed Indicated Magnesium Level 1.6mg/dL (1.6-2.6) Test 10/17/16 07:30 10/17/16 15:37 10/19/16 08:48 10/21/16 07:25 Thrombin Time 16.5sec (0.0-23.0) Hemoglobin A1c 6.4% (4.8-5.6) Activated Partial Thromboplast Time 43.4sec (22.8-33.0) Lactic Acid Level 0.9mmol/L (0.4-2.0) Procalcitonin 0.04ng/mL (0.00-0.08) Test 10/22/16 07:20 White Blood Count 11.0th/mm3 (3.8-10.1) Red Blood Count 3.68mil/mm3 (4.40-5.80) Hemoglobin 11.0g/dL (13.8-17.2) Hematocrit 35.4% (41.0-50.0) Mean Corpuscular Volume 96.2fL (81-100) Mean Corpuscular Hemoglobin 29.9pg (27.0-35.0) Mean Corpuscular Hemoglobin Concent 31.1% (32.0-37.0) Red Cell Distribution Width 17.3% (12.3-15.4) Platelet Count 237bil/L (150-400) Neutrophils (%) (Auto) 83.9% (40-74) Lymphocytes (%) (Auto) 7.9% (14-46) Monocytes (%) (Auto) 5.8% (4-12) Eosinophils (%) (Auto) 1.3% (0-5) Basophils (%) (Auto) 0.4% (0-3) Prothrombin Time 51.5sec (8.1-12.5) Prothromb Time International Ratio 4.66ratio Sodium Level 143mEq/L (134-144) Potassium Level 5.0mEq/L (3.5-5.2) Chloride Level 104mEq/L (97-108) Carbon Dioxide Level 27mmol/L (18-29) Blood Urea Nitrogen 20mg/dL (8-27) Creatinine 0.85mg/dL (0.76-1.27) Estimat Glomerular Filtration Rate 94mL/min (>59) Glucose Level 150mg/dL (60-99) Calcium Level 9.1mg/dL (8.5-10.1) Total Bilirubin 0.6mg/dL (0.0-1.2) Aspartate Amino Transf (AST/SGOT) 12U/L (0-50) Alanine Aminotransferase (ALT/SGPT) 15U/L (0-44) Alkaline Phosphatase 123U/L (25-160) Total Protein 5.8g/dL (6.4-8.4) Albumin 3.3g/dL (3.4-5.0) Microbiology Results MRSA screen negative ADENOVIRUS RESPIRATORY PCR Final 10/16/16 Not Detected CORONOVIRUS 229E Final 10/16/16 Not Detected CORONOVIRUS HKU1 Final 10/16/16 Not Detected CORONOVIRUS NL63 Final 10/16/16 Not Detected CORONOVIRUS OC43 Final 10/16/16 Not Detected INFLUENZA A PCR Final 10/16/16 Not Detected INFLUENZA B PCR Final 10/16/16 Not Detected METAPNEUMOVIRUS PCR Final 10/16/16 Not Detected RHINOVIRUS OR ENTEROVIRUS PCR Final 10/16/16 Not Detected PARAINFLUENZA 1 PCR Final 10/16/16 Not Detected PARAINFLUENZA 2 PCR Final 10/16/16 Not Detected PARAINFLUENZA 3 PCR Final 10/16/16 Not Detected PARAINFLUENZA 4 PCR Final 10/16/16 Not Detected CHLAMDOPHILIA PNEUMONIAE PCR Final 10/16/16 Not Detected MYCOPLASMA PNEUMONIAE PCR Final 10/16/16 MYCO PNEUMONIAE PCR Not Detected Reference Interval Not Detected PAHCECO STREP PNEUMONIAE AG URINE Final 10/16/16 STREP PNEUMO AG NEGATIVE Discharge Medications Discharge Medications Amlodipine (Amlodipine) 10 Mg Tablet 10 MG PO QAM (Reported) Amoxicillin/Clav K 500-125 mg (Amoxicillin/Clav K 500-125 mg) 1 Each Tablet 1 TAB PO ONCE Prescribed by: Isamar YE Aspirin Chew (Aspirin Chew) 81 Mg Chew 81 MG PO QAM (Reported) Atenolol (Atenolol) 50 Mg Tablet 50 MG PO QAM (Reported) Atorvastatin (Lipitor) 80 Mg Tablet 80 MG PO HS (Reported) Cholecalciferol (Vitamin D3) (Vitamin D3) 1,000 Unit Tab.chew 1,000 UNIT PO QAM (Reported) Cyanocobalamin (Vitamin B-12) (Vitamin B-12) 1,000 Mcg Tablet 1,000 MCG PO QAM ( Reported) Enalapril Maleate (Enalapril Maleate) 20 Mg Tablet 20 MG PO BID (Reported) Ferrous Sulfate (Ferrous Sulfate) 325 Mg Tablet 325 MG PO BIDWM (Reported) Finasteride (Finasteride) 5 Mg Tablet 5 MG PO QAM (Reported) Insulin Human Lispro (HumaLOG U100 Insulin Vial) 100 Unit/Ml Unit 20 UNIT SUBQ BIDWM (Reported) Check blood sugars before meals and at bedtime. Use correction factor only before meals. Blood Sugar Lispro Correction: <151, 0 units; 151-175, 1 unit; 176-200, 2 units; 201-225, 3 units; 226-250, 4 units; 251-275, 5 units; 276-300 , 6 units; 301-325, 7 units; 326-350, 8 units; 351-375, 9 units; 376-400, 10 units; >400, 12 units. Metformin (Glucophage) 1,000 Mg Tablet 1,000 MG PO BIDWM (Reported) NPH, Human Insulin Isophane (Novolin-N U100 Insulin Vial) 100 Unit/1 Ml Vial 25 UNIT SUBQ BID (Reported) Tamsulosin (Flomax) 0.4 Mg Capsule 0.4 MG PO HS (Reported) Trazodone (Trazodone) 50 Mg Tablet 100 MG PO HS (Reported) As needed Acetaminophen (Acetaminophen) 325 Mg Tablet 650 MG PO Q4H PRN PRN For Pain ( Reported) Furosemide (Furosemide) 40 Mg Tablet 40 MG PO DAILY PRN PRN EDEMA (Reported) oxyCODONE (oxyCODONE) 5 Mg Tablet 5-10 MG PO Q6H PRN PRN For Pain (Reported) MAX 6/DAY oxyCODONE-Acetaminophen 5-325 mg (oxyCODONE-Acetaminophen 5-325 mg) 1 Each Tablet 1-2 TAB PO Q6H PRN PRN For Pain Prescribed by: Isamar YE Additional med instructions Because your INR was elevated, we will hold your warfarin for now and Radha Laverne will check your INR regularly and resume it when necessary Followup Plan Disposition: Patient discharged to snf facility Follow-up plan Patient will follow-up with Dr. Nguyen in a week. He will also follow-up with his primary care provider in 2 weeks. Discharge Diet: Heart Healthy Discharge Activity: Other (Assisted Facility Physical Therapy) Patient Instructions You presented to the Emergency Room after feeling weak, fatigue, short of breath , profusely sweaty, and urinating and spitting up blood for over a week. We did a CT of your brain because you have a history of a brain bleed and that was negative for any changes. We did a Chest X-ray which showed some changes that are consistent with pneumonia. Some of your lab work also showed that their might be an active infection going on. As a result, we started you on antibiotics and you have received 7 days worth thus far. You will need to take 3 more days of antibiotics to finish a 10 day course. As for your heart, the most recent Echocardiogram (ultrasound of your heart) showed some worsening of heart function. We consulted cardiology, Dr. Nguyen, and he wasn't too concerned of anything going acutely that needs to be addressed during this hospital visit. He recommended that you follow-up with him as an outpatient. He also suggested that we get rid of one of your blood pressure medications, Hydralazine. In addition, because your INR was really high when you presented to the hospital , we had to stop your warfarin and resumed it when it was appropriate. Today, your INR was high again so we are going to be holding your warfarin and [facility] will check your INR regularly and resume your warfarin when it is appropriate. As a result of your pneumonia, you have been feeling weak and bed-bound. As we discussed, you will be going to [facility] so that you can get Physical Therapy and Occupational therapy to help you get stronger, recondition and become more mobile again. Because you continue to need oxygen, we will send you to [facility] with supplemental oxygen and they can wean you off of it as your oxygenation improves further. Follow-up Provider: Devante Whipple MD Follow-up with PCP in: 1 week Provider: Malgorzata Varner MD Follow-up in: 2 weeks Time spent Greater than 35 minutes Attending Statement The patient was seen and examined together with Dr. Chambers on 10/22/16 and I have added additional information to the note above. copies to: Devante Whipple MD; [facility]; Malgorzata Varner MD, Alexa N DO Oct 22, 2016 19:37 Marycruz Ivy DO Oct 22, 2016 21:04 Camilla Chambers DO Oct 22, 2016 19:37
== END 2016-10-22 14:07 | DRG 871 ==
LOC: SED 20:31 → PCC 23:18
PROVIDERS: ADMIT Hospitalist; ATTEND Neuromusculoskeletal Medicine & OMM
DX: A41.9 Sepsis, unspecified organism (principal); J18.9 Pneumonia, unspecified organism; J91.8 Pleural effusion in other conditions classified elsewhere; R04.2 Hemoptysis; I27.2 Other secondary pulmonary hypertension; R31.9 Hematuria, unspecified; Z79.01 Long term (current) use of anticoagulants; I25.10 Atherosclerotic heart disease of native coronary artery without angina pectoris; Z95.1 Presence of aortocoronary bypass graft; Z95.2 Presence of prosthetic heart valve; Z87.891 Personal history of nicotine dependence; Z95.5 Presence of coronary angioplasty implant and graft; I10 Essential (primary) hypertension; G47.00 Insomnia, unspecified; F41.9 Anxiety disorder, unspecified; R79.1 Abnormal coagulation profile; Z86.79 Personal history of other diseases of the circulatory system

== ENCOUNTER 2016-10-26 12:41 | Inpatient (IN) | payer MEDICARE ==
[~2016-10-26] VITALS: Ht 172.7 cm; Wt 102.2 kg
[2016-10-26] VITALS (9 sets, daily range): BP systolic 72–145; BP diastolic 44–73; PULSE 76–92; RESP 14–26; O2SAT 85–96
--- NOTE | 2016-10-26 12:40 | ED.REPORT ---
HPI-Dyspnea / Wheezing Date of Service Oct 26, 2016 ED Provider: Matt Aj Patient is a 76 year old male with a hx of CHF, HTN, DM, and CAD on Coumadin who presents to the ED via EMS from an assisted living facility s/p being discharged just a few days ago after being seen for pneumonia. Per longterm , they have had trouble managing him as he has been hypoxic and hypotensive. He complains of myalgia and cough. He denies fever, chills, sweats, nausea, vomiting, or any other symptoms. Pt is on Augmentin. He received a duoneb en route. He is FULL CODE Nursing Notes Stated Complaint: CRACKLES/PNEUMONIA Nursing Notes Reviewed: Yes Allergies: Coded Allergies: NSAIDS (Non-Steroidal Anti-Inflamma (Verified Allergy, Unknown, 10/26/16) ciprofloxacin (Verified Allergy, Unknown, 10/26/16) cortisone (Verified Allergy, Unknown, 10/26/16) ceftriaxone (Verified Adverse Reaction, Intermediate, 10/26/16) Scheduled Amlodipine (Amlodipine) 10 Mg Tablet 10 MG PO QAM Amoxicillin/Clav K 500-125 mg (Amoxicillin/Clav K 500-125 mg) 1 Each Tablet 1 TABLET PO daily x 5 days Aspirin Chew (Aspirin Chew) 81 Mg Chew 81 MG PO QAM Atenolol (Atenolol) 50 Mg Tablet 50 MG PO QAM Atorvastatin (Lipitor) 80 Mg Tablet 80 MG PO QAM Cholecalciferol (Vitamin D3) (Vitamin D3) 1,000 Unit Tab.chew 1,000 UNIT PO QAM Cyanocobalamin (Vitamin B-12) (Vitamin B-12) 1,000 Mcg Tablet 1,000 MCG PO QAM Enalapril Maleate (Enalapril Maleate) 20 Mg Tablet 20 MG PO BID Ferrous Sulfate (Ferrous Sulfate) 325 Mg Tablet 325 MG PO BIDWM Finasteride (Finasteride) 5 Mg Tablet 5 MG PO QAM Furosemide (Furosemide) 40 Mg Tablet 40 MG PO DAILY Lactobacillus Acidophilus (Acidophilus) 1 Each Capsule 2 EACH PO BID Metformin (Glucophage) 1,000 Mg Tablet 1,000 MG PO BIDWM NPH, Human Insulin Isophane (HUMulin-N U100 Insulin Vial) 100 Unit/1 Ml Vial 25 UNIT SUBQ BID Nystatin (Nystatin) 60 Applic/15 Gm Cream 1 APPLIC TOP BID Tamsulosin (Flomax) 0.4 Mg Capsule 0.4 MG PO HS Trazodone (Trazodone) 100 Mg Tablet 100 MG PO HS Zinc Oxide (Zinc Oxide) 57 Gm Oint...g. 1 APPLIC TP TID Scheduled PRN Acetaminophen (Acetaminophen) 325 Mg Tablet 650 MG PO Q4H PRN PRN For Pain Albuterol Neb Soln (Albuterol Neb Soln) 2.5 Mg/3 Ml Vial.neb 2.5 MG INHALATION Q4H PRN PRN For Shortness of Breath Bisacodyl (Dulcolax Rectal) 10 Mg Supp.rect 10 MG RC DAILY PRN PRN For Constipation Furosemide (Furosemide) 40 Mg Tablet 40 MG PO DAILY PRN PRN edema Insulin Human Lispro (HumaLOG U100 Insulin Vial) 100 Unit/Ml Unit 0-12 UNIT SUBQ TIDAC PRN PRN sliding scale Check blood sugars before meals and at bedtime. Use correction factor only before meals. Blood Sugar Lispro Correction: <151, 0 units; 151-175, 1 unit; 176-200, 2 units; 201-225, 3 units; 226-250, 4 units; 251-275, 5 units; 276-300 , 6 units; 301-325, 7 units; 326-350, 8 units; 351-375, 9 units; 376-400, 10 units; >400, 12 units. Magnesium Hydroxide (Milk of Magnesia) 400 Mg/5 Ml Oral.susp 30 ML PO DAILY PRN PRN For Constipation Na Phos,M-B/Na Phos,Di-Ba (Fleet Enema) 133 Ml Enema 133 ML RC DAILY PRN PRN For Constipation oxyCODONE (oxyCODONE) 5 Mg Tablet 5-10 MG PO Q6H PRN PRN For Pain MAX 6/DAY General Time Seen by MD: 12:45 Transferred From: correction Chief Complaint Other (hypoxia ) Hx Obtained From: Patient, EMS Arrived By: Ambulance Sudden in Onset?: No Onset Occurred: Onset unknown Recent Healthcare: Recent doctor visit, Recent hospitalization Past Medical History Past Medical History Notes: Code status: Full treatment/Full code Past Medical History 1. Diabetes mellitus. 2. Hypertension. 3. Hypercholesterolemia. 4. Severe obesity 5. History of smoking. 6. Status post coronary artery bypass surgery x4 and mechanical aortic valve replacement on January 11, 2003. 7. Obstructive sleep apnea, on continuous positive airway pressure. 8. Chronic dizziness. 9. Right bundle branch block. 10. Moderate to severe tricuspid regurgitation. 11. h/o Subdural hematoma requiring surgical drainage and craniotomy January 2015 12. CHF 13. Sepsis 14. Kidney stones Past Surgical History aortic valve (mechanical) craniotomy for subdural January 2015 chest tumor removal Shoulder surgery Family History Noncontributory Smoking History Former Smoker Social History Drug Use: Denies drug use Other Social History: Good social support, , Lives in [facility], Local resident Ambulatory Status Independent Review of Systems +hypoxia, hypotension Constitutional: Denies: Chills, Fever Respiratory: Reports: Prod cough, clear Musculoskeletal: Reports: Myalgia Skin: Denies Diaphoresis Complete sys rev & neg: except as marked. GI: Denies: Nausea, Vomiting Physical Exam Initial Vital Signs Vital Signs (First) Date Time Temp Pulse Resp B/P Pulse Ox O2 Delivery O2 Flow Rate FiO2 10/26/16 12:42 37 89 22 80/44 92 Nasal Cannula 3 Initial VS: Reviewed, Vital signs abnormal Skin: Warm, Dry Neurologic: Nonfocal Psychiatric: Mood/affect normal General/Constitutional: Awake, Alert Appearance / Presentation: Positive: Obese, Pale Slow to respond hypotensive and hypoxic Neck: Atraumatic Respiratory / Chest: Atraumatic Diffuse rhonchi Cardiovascular: Heart rate NL LE edema Abdomen: Atraumatic, Soft, Non-tender Head / Eyes: PERRL Interpretation & Diagnostics Lab Results Interpretation Result Diagram: 10/26/16 1250 10/26/16 1250 Test 10/26/16 12:50 10/26/16 13:52 White Blood Count 15.4th/mm3 (3.8-10.1) Red Blood Count 3.78mil/mm3 (4.40-5.80) Hemoglobin 11.1g/dL (13.8-17.2) Hematocrit 35.8% (41.0-50.0) Mean Corpuscular Volume 94.7fL (81-100) Mean Corpuscular Hemoglobin 29.4pg (27.0-35.0) Mean Corpuscular Hemoglobin Concent 31.0% (32.0-37.0) Red Cell Distribution Width 18.2% (12.3-15.4) Platelet Count 283bil/L (150-400) Neutrophils (%) (Auto) 89.9% (40-74) Lymphocytes (%) (Auto) 4.5% (14-46) Monocytes (%) (Auto) 5.2% (4-12) Eosinophils (%) (Auto) 0% (0-5) Basophils (%) (Auto) 0.1% (0-3) Prothrombin Time 58.4sec (8.1-12.5) Prothromb Time International Ratio 5.28ratio Urine Color Dark yellow (YELLOW) Urine Appearance Cloudy (CLEAR,HAZY) Urine pH 5.5 (5.0-8.0) Urine Specific [place] 1.020 (1.003-1.035) Urine Protein 100mg/dL (NEG,TRACE) Urine Glucose (UA) Negativemg/dL (NEGATIVE) Urine Ketones Tracemg/dL (NEGATIVE) Urine Occult Blood Large (NEGATIVE) Urine Nitrite Negative (NEGATIVE) Urine Bilirubin Negative (NEGATIVE) Urine Urobilinogen Normalmg/dL (NORMAL) Urine Leukocyte Esterase Small (NEGATIVE) Urine RBC >50/hpf (0-2) Urine WBC 0-5/hpf (0-5) Urine Epithelial Cells Occasional/hpf (NONE-MOD) Urine Crystals None seen (NONE SEEN) Urine Bacteria None/hpf (NONE-FEW) Urine Hyaline Casts None/lpf (NONE) Urine Granular Casts None seen (NONE SEEN) Urine Waxy Casts None seen (NONE SEEN) Urine Red Blood Cell Casts None seen (NONE SEEN) Urine White Blood Cell Casts None seen (NONE SEEN) Urine Mucus Present (None Seen) Urine Trichomonas None seen (NONE SEEN) Urine Yeast None (NONE SEEN) Urinalysis Comment None Urine Culture Reflexed Indicated Sodium Level 144mEq/L (134-144) Potassium Level 3.8mEq/L (3.5-5.2) Chloride Level 96mEq/L (97-108) Carbon Dioxide Level 32mmol/L (18-29) Blood Urea Nitrogen 29mg/dL (8-27) Creatinine 0.89mg/dL (0.76-1.27) Estimat Glomerular Filtration Rate 89mL/min (>59) Glucose Level 205mg/dL (60-99) Lactic Acid Level 2.8mmol/L (0.4-2.0) Calcium Level 9.3mg/dL (8.5-10.1) Magnesium Level 1.8mg/dL (1.6-2.6) Total Bilirubin 1.0mg/dL (0.0-1.2) Aspartate Amino Transf (AST/SGOT) 15U/L (0-50) Alanine Aminotransferase (ALT/SGPT) 11U/L (0-44) Alkaline Phosphatase 106U/L (25-160) Troponin T 0.099ug/L (0.0-0.011) Pro-B-Type Natriuretic Peptide 9018pg/mL (0-486) Total Protein 6.8g/dL (6.4-8.4) Albumin 3.3g/dL (3.4-5.0) Procalcitonin 0.11ng/mL (0.00-0.08) Ammonia 32ug/dL (18-53) Lab Results Interpretation: ECHO on 10/18 indicated EF of 40-45. INR as of 10/25/16 3.14 Chest Xray 1 vw 10/25/16: cardiomegaly with mild congestive heart failure. Left basilar consolidation ECG Interpretation ECG Interpretation: sinus rate 92 RBBB left posterior fascicular block diffuse ST changes similar to prior PVC Time: 13:44 Interpreted by: ED physician ABG Interpretation ABG Interpretation: Venous BG: pH 7.417 pCO2 59 pO2 29.5 cHCO3- 37.2 cBase 11.0 Exam Performed by: [facility] Exam Interpreted by: ED physician Re-Eval/Medical Decision Med Decision/Clinical Course Patient presents hypotensive hypoxic after recent diagnosis of pneumonia. INR is supratherapeutic, pulmonary embolism seems unlikely, patient likely has recurrent pneumonia with associated congestive heart failure or non-ST elevation FL. We will plan to admit the patient. Patient's respiratory status has been waxing and waning at times he is tachypneic and hypoxic despite supplemental oxygen for this reason he is placed on BiPAP. Blood pressure has come up appropriately after 1 L bolus of normal saline. Re-Evaluation/Progress : Time of Eval: 12:55 Re-Evaluation/Progress Note: Discussed plan for admission. Patient understands and agrees with plan. All questions addressed at this time. Consultation : Referral / Consult Name: Gianni Carrington MD Call Returned at: 14:13 Laundry Room Attendant: Will see patient, Agrees with eval, Agrees with plan, Accepts admit Note: Discussed pt's case. Accepts admit. Counseled Regarding: Diagnosis, Lab results, Need for admission Discharge & Departure Impression: Primary Impression: Sepsis Sepsis type: sepsis due to unspecified organism Qualified Code: A41.9 - Sepsis, unspecified organism Additional Impressions: Pneumonia Pneumonia type: due to unspecified organism Laterality: unspecified laterality Lung location: unspecified part of lung Qualified Code: J18.9 - Pneumonia, unspecified organism Pulmonary edema Chronicity: chronic Qualified Code: J81.1 - Chronic pulmonary edema Disposition: ADMITTED TO HOSPITAL Discharge Condition All VS Reviewed: Yes Condition: Stable Referrals: Malgorzata Varner MD (PCP) Kory Attestation Portions of this note were transcribed by Socorro Allen. I, Dr. Aj personally performed the history, physical exam and medical decision-making; I reviewed and confirmed the accuracy of the information in the transcribed note. Signed by: Kory Mcgowan, 10/26/16 copies to: Malgorzata Varner MD, Timothy S DO Oct 26, 2016 12:40 SOCORRO ALLEN Oct 26, 2016 12:50
[~2016-10-26 12:41] MED LIST changes: +ACET325T51 PO; +AMOX1TAB11 PO; +ASPI81TA3 PO; -B 12 PO; +CHOL10008 PO; +CYAN10008 PO; -D3 PO; +ENAL20TA PO; -ENALAPRIL PO; +FERR-83 PO; +FINA5TAB9 PO; -HUMALOG SQ; +INSLIS SUBQ; -INSULIN GLARGINE SQ; -LOVENOX SQ; +NPH,100V10 SUBQ; +OXYC-530 PO; +OXYC1TAB24 PO; +TAMS0.4C98 PO; -TRAM50TA2 PO; +TRAZ-115 PO; -WARF5TAB7 PO; -WARF7.5T4 PO
[2016-10-26] MEDS ORDERED: levoFLOXacin Inj 750 MG in IV Premix 1 EACH IV ONE (12:50)
[2016-10-26] MEDS ORDERED: 0.9% Sodium Chloride 1,000 ML IV ONE (12:50)
[2016-10-26] MEDS ORDERED: Piperacillin-Tazo 3.375 Gm Inj 3.375 GM in Dextrose 5% Minibag Plus 50 ML IV ONE (12:50)
--- NOTE | 2016-10-26 12:58 | ABG ---
DateTimeAnalyzed 12:50:00 -_ pH ____7.417 - 7.320 7.420 pCO2 ___58.9__ -mmHg 41.0 51.0 pO2 ___29.5__ -mmHg 24.0 40.0 HCO3- ___37.2__ -mmol/L ABE ___11.0__ -mmol/L tHb ___11.3__ -g/dL 12.0 18.0 O2Hb ___47.5__ -% COHb ____2.2__ -% 0.0 1.5 MetHb ____1.2__ -% 0.4 1.5 sO2 ___49.2__ -% FIO2 ___32.0__ -% Drawn By jonathan hoeft - Date/Time Notified____ 12:57:00 -_ Liter_Flow ____3.0__ -L/min Oxygen Device 1 __CANNULA - Notified By jj - Notified Whom dr okelley - B 757 -mmHg tO2 ____7.6__ -Vol% [place] test N/A -
[2016-10-26] MEDS ORDERED: Vancomycin Dose per Pharmacist XX ONE (13:02)
[2016-10-26 13:08] LABS: BASOPHILS % (AUTO) 0.1 % (0-3); EOSINOPHILS % (AUTO) 0 % (0-5)
[2016-10-26 13:10] LABS: MONOCYTES % (AUTO) 5.2 % (4-12); Mean Corpuscular Hemoglobin 29.4 pg (27.0-35.0); Mean Corpuscular Volume 94.7 fL (81-100); NEUTROPHILS % (AUTO) 89.9 % (40-74); Platelet Count 283 bil/L (150-400)
--- NOTE | 2016-10-26 13:40 | DRSVH ---
PROCEDURE: X-RAY CHEST ONE VIEW, PORTABLE ([id number]) INDICATIONS: hypoxia TECHNIQUE: One view of the chest was acquired. COMPARISON: [facility], CR, XR HUMERUS 2VW LT, 10/15/2016, 10:59. [facility] l, CR, XR CHEST 1VW (PORTABLE), 10/16/2016, 5:16. FINDINGS: Surgical changes and devices: Sternotomy wires and CABG clips as before Lungs and pleura: No pneumothorax. Cannot exclude small layering hazy bilateral pleural effusions. Th ere are persistent groundglass and patchy opacities throughout the lungs as well as retrocardiac cons olidation Mediastinum: Mediastinal contours appear normal. Heart size is again enlarged. Bones and chest wall: No suspicious bony lesions. Chronic deformity of the left humeral head. [place] ing soft tissues appear unremarkable. IMPRESSION: Widespread bilateral groundglass opacities suggesting pulmonary edema, with superimposed bibasilar co nsolidative opacities especially in the retrocardiac region although these appear grossly unchanged. Please correlate clinically. Cardiomegaly as before Dictated by: Froilan Catherine M.D. on 10/26/2016 at 12:36 Approved by: Froilan Catherine M.D. on 10/26/2016 at 12:38
[2016-10-26 13:42] LABS: Magnesium 1.8 mg/dL (1.6-2.6)
[2016-10-26 13:48] LABS: APPEARANCE,URINE CLOUDY (CLEAR,HAZY); COLOR,URINE DARK YELLOW (YELLOW); OCCULT BLOOD,URINE LARGE (NEGATIVE); PH,URINE 5.5 (5.0-8.0)
[2016-10-26 13:53] LABS: INR 5.28 ratio
[2016-10-26 13:54] LABS: UROBILINOGEN,URINE NORMAL (NORMAL)
[2016-10-26 14:01] LABS: TROPONIN T 0.099 ug/L (0.0-0.011)
[2016-10-26] MEDS ORDERED: 0.9% Sodium Chloride 1,000 ML IV SCH (14:17)
[2016-10-26] MEDS ORDERED: Alum-Mag Hydrox-Simeth 30 mL Suspension PO PRN ×2 (14:20→14:55)
[2016-10-26] MEDS ORDERED: Ondansetron 2 mg/mL 2 mL Inj IVPUSH PRN ×2 (14:20→14:55)
[2016-10-26] MEDS ORDERED: Senna-Docusate 8.6-50 mg Tablet PO PRN (14:55)
[2016-10-26] MEDS ORDERED: Polyethylene Glycol (PEG) 17 Gm Powder PO PRN (14:55)
[2016-10-26] MEDS ORDERED: ALBU2.5V4 INHALATION (14:59)
[2016-10-26] MEDS ORDERED: ZINC57OI TP (14:59)
[2016-10-26] MEDS ORDERED: NPH,100V11 SUBQ (14:59)
[2016-10-26] MEDS ORDERED: FURO40TA4 PO (14:59)
[2016-10-26] MEDS ORDERED: AMOX1TAB11 PO (14:59)
[2016-10-26] MEDS ORDERED: MYCC TOP (14:59)
[2016-10-26] MEDS ORDERED: LACT1CAP26 PO (14:59)
[2016-10-26] MEDS ORDERED: TRAZ-118 PO (14:59)
[2016-10-26] MEDS ORDERED: INSLIS SUBQ (14:59)
[2016-10-26] MEDS ORDERED: NA P133E23 RC (14:59)
[2016-10-26] MEDS ORDERED: MAGN400O4 PO (14:59)
[2016-10-26] MEDS ORDERED: BISA10SU61 RC (14:59)
--- NOTE | 2016-10-26 15:09 | PCM.HPMED ---
Subjective Date of Service Oct 26, 2016 Primary Provider: Admitting Physician: Primary Care Physician: Malgorzata Varner MD Attending Physician: Admit Status: From the Emergency Department Chief Complaint: weakness and fatigue History of Present Illness: Tito Albright is a 76-year-old gentleman with a complicated medical history of coronary artery disease status post CABG x4 plus ERICA, mechanical aortic valve replacement, Pulmonary hypertension, severe tricuspid regurgitation and diabetes mellitus presents to the [facility] emergency department with a two day history of progressive fatigue, weakness, and cough. The patient was discharged on 10/22 to [facility] and how reportedly been hypoxic and hypotensive. The patient states that his shortness of breath feels about baseline and he has been coughing recently but this is also at baseline and not getting worse. The patient has some phlegm which appears white. He denies fever , chills, headaches, chest pain, nausea. The patient states that he has not been really eating or drinking much since he was discharged. He states that he has been constipated without belly pain. The patient has continued to have dark urine which is at baseline for him. The patient states that he feels significantly better after getting IV hydration in the ED. The patient states that he has not been sleeping well especially last night. Review of Systems: A comprehensive review of systems was obtained and all are negative except for what is included in the HPI. Allergies Coded Allergies: NSAIDS (Non-Steroidal Anti-Inflamma (Verified Allergy, Unknown, 10/26/16) ciprofloxacin (Verified Allergy, Unknown, 10/26/16) cortisone (Verified Allergy, Unknown, 10/26/16) ceftriaxone (Verified Adverse Reaction, Intermediate, 10/26/16) Home Medications Amlodipine 10 MG PO QAM Amoxicillin/Clav K 500-125 mg (Amoxicillin/Clav K 500-125 mg) 1 Each Tablet 1 TAB PO ONCE Aspirin Chew 81 MG PO QAM Atenolol 50 MG PO QAM Atorvastatin 80 MG PO HS Cholecalciferol 1,000 UNIT PO QAM Cyanocobalamin 1,000 MCG PO QAM Enalapril Maleate 20 MG PO BID Ferrous Sulfate 325 MG PO BIDWM Finasteride 5 MG PO QAM Insulin Human Lispro 20 UNIT SUBQ BIDWM Metformin 1,000 MG PO BIDWM NPH, Human Insulin Isophane 25 UNIT SUBQ BID Tamsulosin 0.4 MG PO HS Trazodone 100 MG PO HS Acetaminophen 650 MG PO Q4H PRN For Pain Furosemide 40 MG PO DAILY PRN EDEMA oxyCODONE 5-10 MG PO Q6H PRN PRN For Pain MAX 6/DAY oxyCODONE-Acetaminophen 5-325 mg 1-2 TAB PO Q6H PRN For Pain The patient was previously on Warfarin however this was being held due to elevated INR PMH Diabetes mellitus insulin dependent with complications including nonproliferative diabetic retinopathy and cataracts bilaterally Hypertension Hypercholesterolemia Obesity Distant history of tobacco use Coronary artery disease status post coronary artery bypass 4, ERICA placement Mechanical aortic valve replacement 2002 Obstructive sleep apnea on CPAP therapy Chronic dizziness Right bundle branch block Severe tricuspid regurgitation Pulmonary Hypertension History of subdermal hematoma following a ground-level fall that required surgical drainage and craniotomy in 2014 Arthritis Benign Prostatic Hypertrophy L3 burst fracture after a ground-level fall in 2015 Anxiety Insomnia Outpatient documentation notes history of atrial fibrillation however the patient denied any history of atrial fibrillation to his knowledge Surgical History Mechanical aortic valve replacement 2002 Coronary artery bypass surgery 4, ERICA placement Surgical drainage of subdural hematoma and craniotomy, 2014 Phaco cataract surgery bilaterally benign chest tumor removal Shoulder surgery Appendectomy cystoscopy 2012 colonoscopy 2013 Family History Brother: Diabetes, coronary artery disease Father: of heart disease in his 70s, heart disease Grandparents: Coronary artery disease and diabetes Mother: Emphysema and lung cancer Sister: Diabetes Patient reports significant history of coronary artery disease, including relatives passing away from myocardial infarction at the age of 19 Social History 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 Hx Alcohol Use: No Hx Substance Use: No Hx Tobacco Use: No Smoking Status: Former Smoker Living Arrangement: [facility] (discharged to [facility] on 10/22) Exam Vital Signs Vital Sign - Last Date Time Temp Pulse Resp B/P Pulse Ox O2 Delivery O2 Flow Rate FiO2 10/26/16 14:00 82 14 136/70 92 BiPAP 10/26/16 13:00 3 10/26/16 12:42 37 Exam General: obese senior male appearing approximately stated age in no acute distress mildly somnelent Eyes: Pupils equal round and reactive to light, extraocular motion intact, anicteric sclera, noninjected conjunctiva HENT: Normocephalic atraumatic, moist mucous membranes without central cyanosis , oropharynx clear without purulent exudate or cobblestoning mucosa Neck: Supple, trachea midline, without thyromegaly or JVD Cardiovascular: Regular rate and regular rhythm, S1-S2 present, systolic murmur noted in left lower sternal boarder with systolic click noted almost globally most noticeable at right upper sternal boarder, no rubs or gallops noted Lungs: course breath sounds noted bilaterally worse in the bases of the axilla and posterior lung omer with more clear sounds in the anterior omer bilaterally, no wheezing Abdomen: Soft, nontender, nondistended, tympanic to percussion, normal active bowel sounds, without organomegaly Extremities: No cyanosis clubbing or edema noted, pulses intact bilaterally at dorsalis pedis and radial : No Manuel catheter in place Skin: Warm and dry MSK: Global weakness noted with strength Neuro: Nonfocal neurologic exam, able to move all extremities Psych: flat affect and normal mood Lab and Diagnostics Result Diagram: 10/26/16 1250 10/26/16 1250 X-Rays, CTs and MRIs X-RAY CHEST ONE VIEW, PORTABLE IMPRESSION: Widespread bilateral groundglass opacities suggesting pulmonary edema, with superimposed bibasilar consolidative opacities especially in the retrocardiac region although these appear grossly unchanged. Please correlate clinically.Cardiomegaly as before Approved by: Froilan Catherine M.D. on 10/26/2016 at 12:38 Cardiac Echo Impressions Cardiac Echo Impression Echocardiogram on 10/18/2016 interpretation summary The left ventricle is normal in size. The ejection fraction is estimated to be 40-45%. Compared to the prior exam, the left ventricular function is reduced. There appears to be severe hypokinesis of base to mid inferior wall extending into the base to mid postero lateral wall. Right ventricle is moderately dilated. Right ventricular systolic function is mild to moderately reduced. There is moderate to severe mitral annular calcification. No significant mitral valve stenosis. There is moderate to severe mitral regurgitation. The mitral valve mean gradient is 5 mmHg. Compared to the prior echo study, there has been an increase in the severity of mitral regurgitation. There is a mechanical aortic valve. The prosthetic aortic valve is well seated. The peak aortic velocity is 2.48 m/s. The peak aortic velocity on the previous exam was 3.53 m/s. The aortic valve mean gradient is 13.5 mmHg. There is severe tricuspid regurgitation. Compared to the prior echo exam, there has been an increase in TR severity. The right ventricular systolic pressure is estimated at 58 mmHg assuming a right atrial pressure of 15 mmHg. Compared to the prior echo exam, there has been an increase in the severity of pulmonary hypertension. There is a moderately large left-sided pleural effusion. Additional Diagnostics: DateTimeAnalyzed 12:50:00 -_ pH ____7.417 - 7.320 7.420 pCO2 ___58.9__ -mmHg 41.0 51.0 pO2 ___29.5__ -mmHg 24.0 40.0 HCO3- ___37.2__ -mmol/L Assessment & Plan Tito Albright is a 76-year-old gentleman with a complicated medical history of subdural hematoma status post surgical drainage and craniotomy following ground- level fall, coronary artery disease status post CABG x4 plus drug-eluting stent placement, mechanical aortic valve replacement, and diabetes mellitus, and presented to the emergency department with a two day history of progressive fatigue, weakness, and cough. The patient was discharged on 10/22 to [facility] and how reportedly been hypoxic and hypotensive. Hypotension secondary to presumed dehydration - Patient presented to the ED with blood pressure of 80/44 with a lactic acidosis of 2.7 - The patient denies symptoms of ongoing infection including fever, chills, worsening cough, SOB, abdominal pain, or increased urination frequency or urgency - The patient admits to poor oral intake while continuing Lasix - Chloride of 96 with Alkalosis Bicarb of 32 which is well compensated on venous blood gas consistent with contraction alkalosis - Blood pressure improved from systolics in the 80 to systolics in the 130 with 1L NS - CXR shows consistent pulmonary edema consistent with the patient's prior xray images from his previous hospitalization - Fractional excretion of urea ordered - Continue conservative fluid management Acute Hypercapnic respiratory failure - no prior ABG available - venous blood gas shows elevated CO2 - Patient is clinically more somnolent that previously seen, he attributes this to poor sleep last night - Repeat ABG - RT to place BiPAP Acute Leukocytosis with Elevated lactic acid - ED initially concerned for sepsis however patient has no signs of active infection with negative procalcitonin and previously clinically treated for pneumonia - On admit: Lactic acid 2.7 repeated to 2.8 - Likely secondary to hypotension and underlying heart failure and pulmonary hypertension with elevated CO2 - trend Q 2 till normal - blood cultures and urine cultures ordered - patient started on antibiotics Vancomycin, Zosyn and Levoquin for healthcare acquired pneumonia given presentation of course breath sounds with hypotension however these will not be continued Acute on chronic Systolic Congestive Heart Failure with elevated troponins of unknown significance - Mildly elevated troponins and patient denies chest pain ever - EF of 40-45% on previous ECHO - Patient appears dry with dry mucus membranes and no noted JVD, however with CXR showing more pulmonary edema than previously seen - Check fractional excretion of urea given lasix use - Consider cardiology consult in AM Pulmonary Hypertension and severe tricuspid valve regurgitation -Noted on ECHO from prior hospitalization -recommended out patient follow-up 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 - UA on readmission noted continual significant blood - Patient reports worked up by outpatient urology, with recommendations to see nephrology - Monitor for any worsening, as patient's INR was significantly elevated during admission - Nephrology consulted Elevated INR, acute, present on admission, monitoring - On admit: INR 5.28 - Likely secondary to recent chronic antibiotic use with decreased gut christiano Vit K - Patient reports compliance with Coumadin dosing and monthly monitoring in clinic - No signs of significant bleeding at time of admission, Hemoglobin is stable compared to prior records - Elevated INR likely contributing to scant hemoptysis, and hematuria - We will continue to monitor with daily coag panel Diabetes mellitus insulin dependant - Medium dose correctional - transition to home medications once stable - A1c 08/19/2016: 7.1 Mechanical aortic valve on chronic anticoagulation therapy - Goal INR 2.5-3.5 - Monitored History of coronary artery disease status post CABG 4 and drug-eluting stent placement - Resume home medications including atorvastatin and aspirin - Echo 2014: EF 55-60, basal inferior wall hypokinesis, moderate mitral annular calcification, moderate mitral regurgitation, mechanical aortic valve, moderate to severe tricuspid regurgitation History of insomnia and anxiety, chronic - Resume home medication trazodone 50 mg, 1-2 tabs as needed for sleep Chronic Benign Prostatic Hypertrophy - continue home finasteride and tamsulosin Code: FULL CODE DVT prophylaxis: heparin 5000 TID GI: Famotidine BID The patient is admitted to the ICU given presenting symptoms likely diagnosis possible complications and required therapy considered length of stay will be greater than 2 midnights. Pain Evaluation: Adequate Pain Control GI Prophylaxis: H2 kings VTE Prophylaxis Indicated: Meets Criteria for Anticoag Therapy VTE Prophylaxis: Theraputic Anticoag with Warfarin Resuscitation Status: CPR: Attempt Resuscitation Attending Statement The patient was seen and examined together with Dr. Mirza on 10/26/2016 and I agree with the history, exam and plan as outlined in the note above. . copies to: Malgorzata Varner MD, Nicholas K DO Oct 26, 2016 15:09 Gianni Carrington MD Oct 27, 2016 16:38
[2016-10-26] MEDS ORDERED: Glucose 40% Oral Gel 15 Gm Tube PO PRN (18:10)
[2016-10-26] MEDS ORDERED: Albuterol 2.5 mg/3 mL Inhalation Solution NEB PRN (20:00)
--- NOTE | 2016-10-26 20:00 | NUR ---
Admit to CCU: Patient arrived to CCU room 2018 at about 1600. Patient was transferred from [facility] to CCU bed using slider board. Patient is on air mattress and states it was provided by hospital at discharge two days ago. Alert to self and place, forgetful and frequently calls on his for assistance with answering questions. PIV to R AC infusing Vanco at 250mL/hr and later changed to NS 100mL/hr for maintenance fluids as ordered. Tele: Sinus 70-80's with IVCD. Denies CP or SOB at this time. VSS. SpO2: 88-92% on 1L NC orders to keep sats between 88-94%. Patient refuses BiPAP despite teaching from RN and MD. Patient incontinent of urine X3 and required bedding changes and partial bath. Encouraged use of brief and patient accepted. Uses call light for needs. at bedside assisting with care.
[2016-10-26] MEDS ORDERED: Famotidine Inj 50 ML IV SCH (20:30)
--- NOTE | 2016-10-26 21:56 | NUR ---
Transfer to [facility] report given to Carlos Eduardo Berry RN. All questions answered. All belongings moved to new room.
[2016-10-26] MEDS: Nystatin 100,000 Unit/Gm 15 Gm Powder TOPICAL SCH (22:44)
[2016-10-26] MEDS: Insulin Human NPH 100 Unit/mL Syringe SUBQ SCH (22:46)
[2016-10-26] MEDS: Insulin LISPRO 300 Unit/3 mL Inj SUBQ SCH (22:46)
[2016-10-27] VITALS (8 sets, daily range): BP systolic 100–143; BP diastolic 63–81; PULSE 59–83; RESP 15–22; O2SAT 87–98
--- NOTE | 2016-10-27 05:42 | NUR ---
Respiratory Pt agreeable to bipap trial. Pt able to tolerate bipap for about 45mins and then requesting to take off mask. Pt educated on the importance of wearing the bipap to help achieve sleep and good oxygenation. Pt verbalized understanding and still declines using bipap. Pt did state that he would try the bipap the next night for a longer period of time. Pt on 1-2 L NC all shift with SpO2 's 87-92% VSS and Tele 70's to 80's with IVCD and PVC's
[2016-10-27 08:07] LABS: BASOPHILS % (AUTO) 0.1 % (0-3); EOSINOPHILS % (AUTO) 0.1 % (0-5); MONOCYTES % (AUTO) 7.1 % (4-12)
[2016-10-27 08:16] LABS: Mean Corpuscular Hemoglobin 30.1 pg (27.0-35.0); Mean Corpuscular Volume 93.1 fL (81-100); NEUTROPHILS % (AUTO) 85.7 % (40-74); Platelet Count 270 bil/L (150-400)
[2016-10-27 08:54] LABS: INR 6.79 ratio
[2016-10-27 08:55] LABS: Magnesium 1.7 mg/dL (1.6-2.6); Phosphorus 2.6 mg/dL (2.5-4.9)
--- NOTE | 2016-10-27 10:01 | NUR ---
Evaluation completed. Please go to "Notes" then click on "Assessments and Notes" (bottom left corner of screen). Then select appropriate discipline tab on top of screen.
[2016-10-27] MEDS: Nystatin 100,000 Unit/Gm 15 Gm Powder TOPICAL SCH ×2 (10:11→21:18)
[2016-10-27] MEDS: Insulin LISPRO 300 Unit/3 mL Inj SUBQ SCH ×4 (10:17→21:00)
[2016-10-27] MEDS: Insulin Human NPH 100 Unit/mL Syringe SUBQ SCH ×2 (12:30→22:44)
--- NOTE | 2016-10-27 15:12 | ABG ---
DateTimeAnalyzed 15:05:00 -_ pH ____7.473 - 7.350 7.450 pCO2 ___49.6__ -mmHg 35.0 45.0 pO2 ___57.7__ -mmHg 69.0 116 HCO3- ___35.9__ -mmol/L 22.0 26.0 ABE ___11.0__ -mmol/L -2.0 2.0 tHb ___10.8__ -g/dL 12.0 18.0 O2Hb ___87.1__ -% COHb ____2.0__ -% 0.0 1.5 MetHb ____0.7__ -% 0.4 1.5 sO2 ___89.5__ -% 25.0 FIO2 ___21.0__ -% Drawn By gj - Date/Time Notified____ 15:12:00 -_ Spontaneous_RR ___16.0__ -b/min Oxygen Device 1 _ROOM AIR - Notified By gj - Notified Whom ___DR. CELERIAN - B 756 -mmHg tO2 ___13.3__ -Vol% Cachorro test _Positive -
--- NOTE | 2016-10-27 16:20 | PCM.CHPCAR ---
Consult Subjective Date of service Oct 27, 2016 Date of admit Oct 26, 2016 at 15:33 Provider Requesting Consult Primary Care Physician Primary Care Physician: Malgorzata Varner MD Chief Complaint Shortness of breath, dyspnea, confusion . History of Present Illness This is a 76 year old man who presented to the ED via EMS on 10-26-16 with worsening SOB, dyspnea, and AMS. Significant past medical hx; Mechanical aortic valve replacement 2002, CAD s/p CABG x4 on 01/11/2003, drug eluding stent placement to LCX on 10-31-2014, HTN, HLD, NAYELI, DM, subdural hematoma status post surgical drainage and craniotomy, CVA. The patient was recently discharged on 10-22-2016 from a 7 day hospital course for treatment of PNA. The patient was discharged to rehab. On Tuesday, 2016, the patient reports feeling short of breath, having a hard time breathing , being confused and feeling lethargic. Patient is a poor historian, and lethargic at times. is at bedside assisting with recollection of events. Symptoms persisted into Tuesday, and the discussed the symptoms with the doctor when he rounded. A chest xray was ordered. On , the report of the chest xray was still not known, and the patients symptoms were still continuing to progress. The let the rehab facility know that she would like the patient to go back to the hospital. Pt arrived via EMS, and was placed on BiPAP. The reports that was the first time his mentation improved, along with his shortness of breath, work of breathing, and level of alertness. Due to prior head surgeries, the patient does not tolerate BiPAP or CPAP masks well , and the patient did not leave the mask on as ordered. The patient denies having any of the following; vision changes, jaw pain, neck pain, back pain, arm pain, sweating, chills, fever, palpitations, chest pounding , MICHELE, nausea, vomiting, diarrhea. The patient does report a bloody, productive cough that has been unresolved since the recent previous admission. He also reports chronic hematuria that has had a negative bladder CA workup for in the past. ECG on admission showed NRS with RBBB with probable right atrial enlargement with ST depression in anterolateral leads. BNP was 9018, initial troponin was 0.099 with subsequent troponins of; 0.108 and 0.121. Of note, lactic acid was 2.8 on admission, WBC count was 15.4, BUN was 29. BP was 80/44. 1liter of NS was given with subsequent SBP in the 130s. Chest xray at the time showed pulmonary edema and bibasilar consolidative opacities. Previous echo demonstrated 40-45%. The patient was admitted to ICU for further care and work up. Further hospital course has included fluid restriction, continued improvement of work of breathing and shortness of breath. Patient has remained lethargic and confused. Most recent blood gas revealed a pH of 7.47 with a Pa02 of 57.7, C02 of 49, and HCO3 of 35.9. Current CT of chest/ABD/pelvis is pending. . Review of Systems Review of Systems Pt is lethargic, but easily arousable. In no signs of discomfort. and friend are at bedside. Additional Information ROS ROS General: No significant weight change. No fever, chills. Good appetite HEENT: No recent change in vision, hearing. No vertigo. No nasal discharge. No difficulty swallowing, or aspiration. Resp: Not experiencing shortness of breath. No wheezing, dyspnea. Reports bloody, productive cough. CV: No chest pain, discomfort. No palpitations, atrial fibrillation, tachycardia. No, syncopal episodes. Reports dizziness and lightheadedness. Generalized edema. No claudication. No ascites. GI: No; dyspepsia, nausea, vomiting, abdominal discomfort, constipation, diarrhea. : No urinary symptoms. Chronic hematuria. MS: No muscle pain, joint pain, cramping. Neuro: (+) hx of CVA. No numbness, slurred speech. Reports confusion, dizziness, lethargy Psych: No depression, anxiety. Integ: No rash or skin lesions. No recent skin problems. Heme: No hx of anemia, easy bruising, bleeding disorders. 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 Past Surgical History Mechanical aortic valve replacement 2003 Coronary artery bypass surgery 4, ERICA placement Surgical drainage of subdural hematoma and craniotomy, 2015 Phaco cataract surgery bilaterally benign chest tumor removal Shoulder surgery Appendectomy cystoscopy 2011 colonoscopy 2013 . Hx Diabetes: YesBedside Blood Glucose: 240 Scheduled Amlodipine (Amlodipine) 10 Mg Tablet 10 MG PO QAM (Reported) Amoxicillin/Clav K 500-125 mg (Amoxicillin/Clav K 500-125 mg) 1 Each Tablet 1 TABLET PO daily x 5 days (Reported) Aspirin Chew (Aspirin Chew) 81 Mg Chew 81 MG PO QAM (Reported) Atenolol (Atenolol) 50 Mg Tablet 50 MG PO QAM (Reported) Atorvastatin (Lipitor) 80 Mg Tablet 80 MG PO QAM (Reported) Cholecalciferol (Vitamin D3) (Vitamin D3) 1,000 Unit Tab.chew 1,000 UNIT PO QAM (Reported) Cyanocobalamin (Vitamin B-12) (Vitamin B-12) 1,000 Mcg Tablet 1,000 MCG PO QAM ( Reported) Enalapril Maleate (Enalapril Maleate) 20 Mg Tablet 20 MG PO BID (Reported) Ferrous Sulfate (Ferrous Sulfate) 325 Mg Tablet 325 MG PO BIDWM (Reported) Finasteride (Finasteride) 5 Mg Tablet 5 MG PO QAM (Reported) Furosemide (Furosemide) 40 Mg Tablet 40 MG PO DAILY (Reported) Lactobacillus Acidophilus (Acidophilus) 1 Each Capsule 2 EACH PO BID (Reported) Metformin (Glucophage) 1,000 Mg Tablet 1,000 MG PO BIDWM (Reported) NPH, Human Insulin Isophane (HUMulin-N U100 Insulin Vial) 100 Unit/1 Ml Vial 25 UNIT SUBQ BID (Reported) Nystatin (Nystatin) 60 Applic/15 Gm Cream 1 APPLIC TOP BID (Reported) Tamsulosin (Flomax) 0.4 Mg Capsule 0.4 MG PO HS (Reported) Trazodone (Trazodone) 100 Mg Tablet 100 MG PO HS (Reported) Zinc Oxide (Zinc Oxide) 57 Gm Oint...g. 1 APPLIC TP TID (Reported) Scheduled PRN Acetaminophen (Acetaminophen) 325 Mg Tablet 650 MG PO Q4H PRN PRN For Pain ( Reported) Albuterol Neb Soln (Albuterol Neb Soln) 2.5 Mg/3 Ml Vial.neb 2.5 MG INHALATION Q4H PRN PRN For Shortness of Breath (Reported) Bisacodyl (Dulcolax Rectal) 10 Mg Supp.rect 10 MG RC DAILY PRN PRN For Constipation (Reported) Furosemide (Furosemide) 40 Mg Tablet 40 MG PO DAILY PRN PRN edema (Reported) Insulin Human Lispro (HumaLOG U100 Insulin Vial) 100 Unit/Ml Unit 0-12 UNIT SUBQ TIDAC PRN PRN sliding scale (Reported) Check blood sugars before meals and at bedtime. Use correction factor only before meals. Blood Sugar Lispro Correction: <151, 0 units; 151-175, 1 unit; 176-200, 2 units; 201-225, 3 units; 226-250, 4 units; 251-275, 5 units; 276-300 , 6 units; 301-325, 7 units; 326-350, 8 units; 351-375, 9 units; 376-400, 10 units; >400, 12 units. Magnesium Hydroxide (Milk of Magnesia) 400 Mg/5 Ml Oral.susp 30 ML PO DAILY PRN PRN For Constipation (Reported) Na Phos,M-B/Na Phos,Di-Ba (Fleet Enema) 133 Ml Enema 133 ML RC DAILY PRN PRN For Constipation (Reported) oxyCODONE (oxyCODONE) 5 Mg Tablet 5-10 MG PO Q6H PRN PRN For Pain (Reported) MAX 6/DAY Discontinued Medications Amoxicillin/Clav K 500-125 mg (Amoxicillin/Clav K 500-125 mg) 1 Each Tablet 1 TAB PO ONCE Hydralazine (Hydralazine) 10 Mg Tablet 10 MG PO BID (Reported) Insulin Human Lispro (HumaLOG U100 Insulin Vial) 100 Unit/Ml Unit 20 UNIT SUBQ BIDWM (Reported) Check blood sugars before meals and at bedtime. Use correction factor only before meals. Blood Sugar Lispro Correction: <151, 0 units; 151-175, 1 unit; 176-200, 2 units; 201-225, 3 units; 226-250, 4 units; 251-275, 5 units; 276-300 , 6 units; 301-325, 7 units; 326-350, 8 units; 351-375, 9 units; 376-400, 10 units; >400, 12 units. NPH, Human Insulin Isophane (Novolin-N U100 Insulin Vial) 100 Unit/1 Ml Vial 25 UNIT SUBQ BID (Reported) Trazodone (Trazodone) 50 Mg Tablet 100 MG PO HS (Reported) Warfarin Sodium (Warfarin Sodium) 5 Mg Tablet 5 MG PO DAILYWD (Reported) oxyCODONE-Acetaminophen 5-325 mg (oxyCODONE-Acetaminophen 5-325 mg) 1 Each Tablet 1-2 TAB PO Q6H PRN PRN For Pain Current Inpatient Medications Current Medications Sodium Chloride 1,000 ml @ 100 mls/hr Q10H IV; Start 10/26/16 at 14:17; Stop at 17:41; Status DC Al Hydrox/Mg Hydrox/Simethicone 30 ml Q6 PRN PO; Start 10/26/16 at 14:20; Stop 10/26/16 at 15:03; Status DC Ondansetron HCl Dose range: 4 mg to 8 mg Q4H PRN IVPUSH; Start 10/26/16 at 14: 20; Stop 10/26/16 at 15:03; Status DC Acetaminophen 975 mg 975 mg Q6H PRN PO Last administered on 10/27/16 13:56; Admin Dose 975 MG; Start 10/26/16 at 14:20 Famotidine/Sodium Chloride 50 ml @ 200 mls/hr Q12 IV Last administered on 21:31; Admin Dose 200 MLS/HR; Start 10/26/16 at 20:30; Stop 10/27/16 at 09: 48; Status DC Ondansetron HCl 4 to 8 mg Q4H PRN IVPUSH; Start 10/26/16 at 14:55 Senna 2 tablet BID PRN PO; Start 10/26/16 at 14:55; Stop 10/26/16 at 16:43; Status DC Al Hydrox/Mg Hydrox/Simethicone 30 ml Q6H PRN PO; Start 10/26/16 at 14:55 Polyethylene Glycol 17 gm DAILY PRN PO; Start 10/26/16 at 14:55 Senna 17.2 mg DAILY PO Last administered on 10/27/16 10:11; Admin Dose 17.2 MG ; Start 10/26/16 at 16:40 Docusate Sodium 200 mg DAILY PO Last administered on 10/27/16 10:10; Admin Dose 200 MG; Start 10/27/16 at 08:30 Albuterol 2.5 mg Q4H PRN NEB; Start 10/26/16 at 20:00 Aspirin 81 mg DAILY PO Last administered on 10/27/16 10:11; Admin Dose 81 MG; Start 10/27/16 at 08:30 Atenolol 50 mg DAILY PO Last administered on 10/27/16 10:11; Admin Dose 50 MG; Start 10/27/16 at 08:30 Bisacodyl 10 mg DAILY PRN RECTAL; Start 10/26/16 at 16:45 Finasteride 5 mg DAILY PO Last administered on 10/27/16 10:11; Admin Dose 5 MG ; Start 10/27/16 at 08:30 Insulin Human NPH 25 unit BID SUBQ Last administered on 10/27/16 12:30; Admin Dose 25 UNIT; Start 10/26/16 at 20:30 Nystatin 1 applic BID TOPICAL Last administered on 10/27/16 10:11; Admin Dose 1 APPLIC; Start 10/26/16 at 20:30 Oxycodone HCl 5 mg Q6H PRN PO Last administered on 10/27/16 15:05; Admin Dose 5 MG; Start 10/26/16 at 16:45 Tamsulosin HCl 0.4 mg HS PO Last administered on 10/26/16 21:31; Admin Dose 0.4 MG; Start 10/26/16 at 21:00 Trazodone HCl 100 mg HS PO; Start 10/26/16 at 21:00; Stop 10/26/16 at 22:15; Status DC Atorvastatin Calcium 80 mg DAILY PO Last administered on 10/27/16 10:17; Admin Dose 80 MG; Start 10/27/16 at 08:30 Lactobacillus Acidophilus 1 tablet BID PO Last administered on 10/27/16 10:10; Admin Dose 1 TABLET; Start 10/26/16 at 20:30 Nystatin 1 applic BID TOPICAL Last administered on 10/27/16 10:11; Admin Dose 1 APPLIC; Start 10/26/16 at 20:30 Insulin Human Lispro Nutritional Dose to be given pr... [facility] SUBQ Last administered on 10/27/16 12:32; Admin Dose 3 UNIT; Start 10/26/16 at 22:00 Trazodone HCl 100 mg HS PO Last administered on 10/26/16t 22:45; Admin Dose 100 MG; Start 10/26/16 at 22:15 Allergies: Coded Allergies: NSAIDS (Non-Steroidal Anti-Inflamma (Verified Allergy, Unknown, 10/26/16) ciprofloxacin (Verified Allergy, Unknown, 10/26/16) cortisone (Verified Allergy, Unknown, 10/26/16) ceftriaxone (Verified Adverse Reaction, Intermediate, 10/26/16) Family History Family History Brother: at 54 from [place]. Diabetes, coronary artery disease Father: Had multiple MIs, with the first at age 19. of heart disease in his 70s, heart disease Grandparents: Coronary artery disease and diabetes Mother: Emphysema and lung cancer Sister: Hx of CABG. 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 According to the , 2 years ago, prior to falls, and subsequent craniotomy, the patient was moderately active and could complete ADLs. Now, and for the previous 2 years, his health and ability have declined. He is now very sedentary at home, and was getting around on a motorized scooter, until a recent fall from that in August that left him with an arm injury, only further limiting his activity and mobility. The states that at this point he is very immobile and very inactive. Exam Vital Signs Vital Sign - Last Date Time Temp Pulse Resp B/P Pulse Ox O2 Delivery O2 Flow Rate FiO2 10/27/16 10:16 83 10/27/16 10:00 36.5 20 131/74 94 Nasal Cannula 0.50 10/26/16 23:17 25 Intake and Output 10/26/16 10/26/16 10/27/16 Cumulative From/Thru 15:00 23:00 07:00 10/26/16 12:58 - 10/27/16 06:39 Intake Total 1000 ml 400 ml 1173 ml 2573 ml Output Total 150 ml 150 ml Balance 1000 ml 400 ml 1023 ml 2423 ml Intake Oral 100 ml 100 ml 200 ml IV Total 1000 ml 300 ml 1073 ml 2373 ml Output Urine Total 150 ml 150 ml # Voids 3 2 5 # Bowel Movements 0 0 Objective General: Nondistressed, well-developed well-nourished male HEENT: PERRLA, EOM intact. Nontender sinuses, no nasal discharge. No erythema , nor exudate present in oropharynx. No thyromegaly appreciated. CV: Regular rate and rhythm, no murmurs, gallops, or rubs appreciated. (-) JVD. 2+ pitting edema to bilateral LE. RESP: Lung sounds clear to ausculation in all lobes, with lung sounds diminished in bilateral bases. Breathing is shallow. Chest rise is symmetric. ABD: Bowel sounds active in all 4 quadrants. Soft, rotunded, nondistended, nontender to palpation. EXT: No joint swelling, generalized anasarca. LYMPH: No cervical or axillary adenopathy appreciated NEURO: cranial nerves grossly intact, strength intact bilaterally upper and lower extremities, sensation to light touch intact bilaterally upper and lower extremities. PSYCH: Oriented to person, place, and time, however not to history. Blunted affect. Lethargic. Skin: No rashes. Healing ecchymosis noted on L upper arm. Lab and Diagnostics Result Diagram: 10/27/16 0758 10/27/16 0758 Assessment & Plan Assessment Acute on chronic Systolic Congestive Heart Failure with elevated troponins . Pain Evaluation: Adequate Pain Control VTE Prophylaxis Indicated: Meets Criteria for Anticoag Therapy VTE Prophylaxis: Theraputic Anticoag with Warfarin VTE Mechanical Devices: Intermittant Pneumatic CD Plan: This gentleman has known history of CAD, with echo showing decreasing LV function. Although his elevated troponin could represent demand ischemia secondary to his dehydration, hypoxemia and recent PNA; his BNP of >9000 and LV dysfunction warrant further cardiac workup. Recommendation is for angiography, and for continued fluid restriction. . Resuscitation Status: CPR: Attempt Resuscitation Time spent 45 minutes. This patient was examined and discussed with Dr. Thorpe. Deanna Yan Oct 27, 2016 16:19
--- NOTE | 2016-10-27 16:48 | DRSVH ---
PROCEDURE: CT CHEST, ABDOMEN AND PELVIS WITHOUT CONTRAST ([id number]) INDICATIONS: lung disease and hematuria TECHNIQUE: After the administration of oral contrast, 5 mm thick sections acquired from the lung apices to the s ymphysis pubis. 5 mm thick coronal and sagittal reformats acquired, with additional 7 mm coronal MIP reformats through the lungs. For radiation dose reduction, the following was used: automated expos ure control, adjustment of mA and/or kV according to patient size. By 46 mm transverse. This is unchanged compared to 10/30/15. [facility], CT, CT ABD PELVIS W&WO CON IVP, 10/30/2015, 15:29. None. FINDINGS: Image quality: Motion is present during portions of the examination, limiting areas of fine detail ev aluation. CHEST: Lungs and pleura: There are mild to moderate bilateral pleural effusions with areas of superimposed c onsolidation. The overall appearance of mild increased pulmonary vascularity. The heart is enlarged. Mediastinum: Heart size is normal. No pericardial effusion. No mediastinal adenopathy by CT size c riteria. Thoracic aorta and central pulmonary arteries are normal in size. Esophagus is normal in c aliber. No hiatal hernia. Chest wall: No axillary or supraclavicular adenopathy by size criteria. Thyroid gland is unremarkab le. ABDOMEN: Solid organs: Liver and spleen are normal in size. Gallbladder demonstrates dependent calcification s without wall thickening. Pancreas is normal in contours. No adrenal nodules. Both kidneys are atrophic bilaterally. There is a relative solid appearing mass within the anterior a spect of the superior right renal pole measuring 43 mm AP by 43 mm transverse. It has been stable sin ce 11/19/11. There is an 18 mm calcification within the left renal pelvis, Hounsfield units for 48. It has increased in size from 9 mm on 10/30/15 exam. Peritoneum and bowel: Small and large bowel loops are normal in caliber and wall thickness. No free fluid or air. Nodes and vessels: No retroperitoneal or mesenteric adenopathy by size criteria. Aorta and inferior vena cava are normal in size. Miscellaneous: No ventral hernias. PELVIS: Genitourinary: Bladder wall thickness is normal. The prostate is enlarged with prominent calcificat ions. Miscellaneous: No inguinal hernias or adenopathy. Bones: No suspicious bony lesions. No vertebral body compression fractures. IMPRESSION: 1. Left renal calculus, which has increased in size compared to prior exam. No obstruction. 2. Unchanged appearance of masslike focus significant along the anterior aspect of the right renal po le as described above. Given stability over multiple prior exams finding could be related to a promi nent renal lobulation versus extremely slow growing neoplasm. Further evaluation with ultrasound may be helpful for additional evaluation. 3. Mild to moderate bilateral pleural effusions with areas of superimposed consolidation. The latter is suspected to be related to atelectasis. However, developing pneumonia cannot be excluded. Dictated by: Jodie Merritt M.D. on 10/27/2016 at 16:32 Approved by: Jodie Merritt M.D. on 10/27/2016 at 16:46
--- NOTE | 2016-10-27 17:07 | PCM.PNMED ---
Subjective Date of Service Oct 27, 2016 Subjective Tito Albright is a 76-year-old gentleman with a complicated medical history of subdural hematoma status post surgical drainage and craniotomy following ground- level fall, coronary artery disease status post CABG x4 plus drug-eluting stent placement, mechanical aortic valve replacement, and diabetes mellitus, and presented to the emergency department with a two day history of progressive fatigue, weakness, and cough. The patient was discharged on 10/22 to [facility] and how reportedly been hypoxic and hypotensive. Today, patient states that he feels much better compared to yesterday. He still appears slightly somnolent, lethargic and short of breath this morning. notes that compared to yesterday, patient's level of mentation and alertness have improved. He did not tolerate the Bipap mask well and requested that it be removed. He continues to have a productive cough, SOB and hematuria. He denies visual changes, headaches, nausea, vomiting, abdominal pain, bowel changes and dysuria. There were no acute events overnight. Exam Vital Signs Vital Sign - Last Date Time Temp Pulse Resp B/P Pulse Ox O2 Delivery O2 Flow Rate FiO2 10/27/16 10:16 83 10/27/16 10:00 36.5 20 131/74 94 Nasal Cannula 0.50 10/26/16 23:17 25 Intake and Output 10/26/16 10/26/16 10/27/16 Cumulative From/Thru 15:00 23:00 07:00 10/26/16 12:58 - 10/27/16 06:39 Intake Total 1000 ml 400 ml 1173 ml 2573 ml Output Total 150 ml 150 ml Balance 1000 ml 400 ml 1023 ml 2423 ml Intake Oral 100 ml 100 ml 200 ml IV Total 1000 ml 300 ml 1073 ml 2373 ml Output Urine Total 150 ml 150 ml # Voids 3 2 5 # Bowel Movements 0 0 Exam General: Patient is ill-appearing but lying comfortably on bed, AAOX3, mild distress, cooperative . HEENT: Scar on the skull with evidence of previous surgery, PERRLA, EOMI, no scleral icterus, noninjected conjunctiva, Neck: neck supple, non-tender, no lymphadenopathy, trachea midline, no JVD CV: regular rate and rhythm, s1 and s2 heard, grade 3/6 systolic murmur heard best on left lower sternal border, and a click was heard diffusely Lungs: Decreased breath sounds bilaterally, no increased work of breathing, patient on 1L supplemental oxygen Abdomen: normoactive bowel sounds on 4Q, soft, non-distended, non-tender to palpation, no organomegally, Skin: warm and dry Musculoskeletal: Weakness of upper and lower extremities bilaterally Neuro: Grossly neurologically intact, cranial nerves II through XII intact, no dyskinesia, dysmetria, or dysdiadochokinesia noted Psych: Normal mood and affect IVs and Medications Medications Reviewed: Medications were reviewed in detail Lab and Diagnostics Result Diagram: 10/27/16 0758 10/27/16 0758 X-Rays, CTs and MRIs X-RAY CHEST ONE VIEW, PORTABLE IMPRESSION: Widespread bilateral groundglass opacities suggesting pulmonary edema, with superimposed bibasilar consolidative opacities especially in the retrocardiac region although these appear grossly unchanged. Please correlate clinically.Cardiomegaly as before Approved by: Froilan Catherine M.D. on 10/26/2016 at 12:38 Cardiac Echo Impressions Cardiac Echo Impression Echocardiogram on 10/18/2016 interpretation summary The left ventricle is normal in size. The ejection fraction is estimated to be 40-45%. Compared to the prior exam, the left ventricular function is reduced. There appears to be severe hypokinesis of base to mid inferior wall extending into the base to mid postero lateral wall. Right ventricle is moderately dilated. Right ventricular systolic function is mild to moderately reduced. There is moderate to severe mitral annular calcification. No significant mitral valve stenosis. There is moderate to severe mitral regurgitation. The mitral valve mean gradient is 5 mmHg. Compared to the prior echo study, there has been an increase in the severity of mitral regurgitation. There is a mechanical aortic valve. The prosthetic aortic valve is well seated. The peak aortic velocity is 2.48 m/s. The peak aortic velocity on the previous exam was 3.53 m/s. The aortic valve mean gradient is 13.5 mmHg. There is severe tricuspid regurgitation. Compared to the prior echo exam, there has been an increase in TR severity. The right ventricular systolic pressure is estimated at 58 mmHg assuming a right atrial pressure of 15 mmHg. Compared to the prior echo exam, there has been an increase in the severity of pulmonary hypertension. There is a moderately large left-sided pleural effusion. Additional Diagnostics DateTimeAnalyzed 12:50:00 -_ pH ____7.417 - 7.320 7.420 pCO2 ___58.9__ -mmHg 41.0 51.0 pO2 ___29.5__ -mmHg 24.0 40.0 HCO3- ___37.2__ -mmol/L Assessment & Plan Tito Albright is a 76-year-old gentleman with a complicated medical history of subdural hematoma status post surgical drainage and craniotomy following ground- level fall, coronary artery disease status post CABG x4 plus drug-eluting stent placement, mechanical aortic valve replacement, and diabetes mellitus, and presented to the emergency department with a two day history of progressive fatigue, weakness, and cough. The patient was discharged on 10/22 to [facility] and how reportedly been hypoxic and hypotensive. Hypotension secondary to presumed dehydration, present on admission, improved - Patient presented to the ED with blood pressure of 80/44 with a lactic acidosis of 2.7 - The patient denies symptoms of ongoing infection including fever, chills, worsening cough, SOB, abdominal pain, or increased urination frequency or urgency - The patient admits to poor oral intake while continuing Lasix - On admit, Chloride of 96 with Alkalosis Bicarb of 32 which is well compensated on venous blood gas consistent with contraction alkalosis - Blood pressure improved from systolics in the 80 to systolics in the 130 with 1L NS - CXR shows consistent pulmonary edema consistent with the patient's prior xray images from his previous hospitalization - Fractional excretion of urea ordered - Continue conservative fluid management Acute Hypercapnic respiratory failure, present on admission, improving - no prior ABG available - venous blood gas shows elevated CO2 - Patient is clinically more somnolent that previously seen, he attributes this to poor sleep last night - Repeat ABG shows pH 7.473, pCO2 49.6, pO2 57.7 - RT to place BiPAP but patient does not tolerate it -ordered non-contrast CT of chest Acute Leukocytosis with Elevated lactic acid - ED initially concerned for sepsis however patient has no signs of active infection with negative procalcitonin and previously clinically treated for pneumonia - On admit: Lactic acid 2.7 repeated to 2.8 - Likely secondary to hypotension and underlying heart failure and pulmonary hypertension with elevated CO2 - Lactic acid normalized - blood cultures and urine cultures ordered - patient started on antibiotics Vancomycin, Zosyn and Levoquin for healthcare acquired pneumonia given presentation of course breath sounds with hypotension however these will not be continued Acute on chronic Systolic Congestive Heart Failure with elevated troponins of unknown significance - Mildly elevated troponins and patient denies chest pain. 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 Blum, consulted and we appreciate her input -per recommendations of nephro, ordered a KUB Elevated INR, acute, present on admission, monitoring - On admit: INR 5.28 - Likely secondary to recent chronic antibiotic use with decreased gut christiano Vit K - Patient reports compliance with Coumadin dosing and monthly monitoring in clinic - No signs of significant bleeding at time of admission, Hemoglobin is stable compared to prior records - Elevated INR likely contributing to scant hemoptysis, and hematuria - We will continue to monitor with daily coag panel Diabetes mellitus insulin dependant - Medium dose correctional - transition to home medications once stable - A1c 08/19/2016: 7.1 Mechanical aortic valve on chronic anticoagulation therapy - Goal INR 2.5-3.5 - Monitored History of coronary artery disease status post CABG 4 and drug-eluting stent placement - Resume home medications including atorvastatin and aspirin - Echo 2015: EF 55-60, basal inferior wall hypokinesis, moderate mitral annular calcification, moderate mitral regurgitation, mechanical aortic valve, moderate to severe tricuspid regurgitation History of insomnia and anxiety, chronic - Resume home medication trazodone 50 mg, 1-2 tabs as needed for sleep Chronic Benign Prostatic Hypertrophy - continue home finasteride and tamsulosin Code: FULL CODE DVT prophylaxis: heparin 5000 TID GI: Famotidine BID Pain Evaluation: Adequate Pain Control GI Prophylaxis: H2 kings VTE Prophylaxis: Theraputic Anticoag with Warfarin VTE Mechanical Devices: Intermittant Pneumatic CD Resuscitation Status: CPR: Attempt Resuscitation Attending Statement The patient was seen and examined together with Dr. Chambers on 10/27/2016 and I agree with the history, exam and plan as outlined in the note above. . Camilla Chambers DO Oct 27, 2016 16:22 Gianni Carrington MD Oct 30, 2016 07:41
--- NOTE | 2016-10-27 17:24 | NUR ---
Social Work: Initial Assessment/Multidisciplinary Rounds D: Per EMR review, pt is a 76 year old male admitted for sepsis, pneumonia, pulmonary edema. Pt is [facility] with Medicare; pt has no LTC or VA benefits. PCP is Malgorzata Varner MD. NOK is Saskia Albright, , . Advanced directives completed. NO RA Score entered at this time. Pt discussed in Multidisciplinary rounds. Capacity for self care discussed; pt comes from [facility] where he was doing rehab. Patient is a readmit and was discharged from [facility] on 10/22/16 to [facility]. DINING ROOM MANAGER met with the patient at bedside. Social work/dcp role explained, contact information and discharge planning checklist provided. See initial assessment. Pt confirms all of his information is still correct from last admission. Patient provided with SNF CHOICE LIST- he states that he knows he will need to go back to [facility] and this is his preference. DINING ROOM MANAGER received telephone call from Stake Setter, Roselyn Segura at [facility]. She states that they can accept the patient back with Dr. Olson to follow. They are requesting access. DINING ROOM MANAGER will provide access once provider places CM order to coordinate SNF discharge. A: Pt who will likely require return to skilled rehab at time of discharge. P: Evolving; DINING ROOM MANAGER to continue to follow and to provide access to [facility] once CM orders placed. [facility] has accepted pt back with Dr. Olson to follow. JOSEPHINE Hernandez Addendum: 10/27/16 at 1728 by YOHAN ROOT Amended: Links added.
--- NOTE | 2016-10-27 18:10 | NUR ---
Respiratory/PSVT/Malaise/Activity No reports of chest pain/pressure/discomfort. Tele SR 70s-80s with PVCs and an IVCD. BP within normal limits. Bilateral non pitting edema to LE and feet. Per tele, one run of PSVT at 140 BPM for approx 5 seconds, patient asymptomatic. Reports no SOB at rest, RN notes increased RR and labored breathing sounds with ambulation. SPO2 varies from 84-95% on 1L NC, per respiratory recommendations, keep patient on 1L NC. Intermittent productive cough. No reports of n/v, denies abdominal pain. Last BM 4 days ago, Docusate and Senna administered this AM. Poor PO intake. Voiding 50-100ccs of light brown urine, denies difficulty urinating. Patient reported "I just don't feel good all over", administered first 975mg PO tylenol, patient reported continued generalized malaise, administered 5mg PO Roxicodone and patient dozed throughout afternoon, although still endorses generalized malaise. Up with PT this AM to chair for breakfast, tolerated fair but fatigued very easily, 2 person to stand to get patient back to bed.
--- NOTE | 2016-10-27 20:11 | DRSVH ---
PROCEDURE: X-RAY CHEST ONE VIEW, PORTABLE ([id number]) INDICATIONS: CHF with pulmonary edema TECHNIQUE: One view of the chest was acquired. COMPARISON: [facility], ECH, ECHO COMPLETE WITH CONTRAST, 10/18/2016, 14:37. [facility], CR, XR CHEST 1VW (PORTABLE), 10/16/2016, 5:16. [facility], CR, XR CHEST 1VW (PORTABLE), 10/26/2016, 12:41. FINDINGS: Surgical changes and devices: Median sternotomy and valvular replacement. Lungs and pleura: Diffuse, widespread bilateral pulmonary interstitial and air space opacities are p resent decreased from prior examination. Mediastinum: Mediastinal contours appear normal. Heart size is enlarged. Bones and chest wall: No suspicious bony lesions. Overlying soft tissues appear unremarkable. IMPRESSION: Slight decrease in pulmonary edema and/or diffuse bilateral pneumonia. Dictated by: Nick GLEASON Interpreted: Jodie Merritt MD on 10/27/2016 at 10:22 Approved by: Jodie Merritt M.D. on 10/27/2016 at 20:09
[2016-10-28] VITALS (11 sets, daily range): BP systolic 124–148; BP diastolic 58–85; PULSE 64–68; RESP 16–20; O2SAT 91–98
[2016-10-28 05:54] LABS: BASOPHILS % (AUTO) 0.1 % (0-3); EOSINOPHILS % (AUTO) 0.5 % (0-5); MONOCYTES % (AUTO) 7.1 % (4-12); Mean Corpuscular Hemoglobin 29.8 pg (27.0-35.0); Mean Corpuscular Volume 94.3 fL (81-100); NEUTROPHILS % (AUTO) 84.3 % (40-74); Platelet Count 246 bil/L (150-400)
--- NOTE | 2016-10-28 07:42 | NUR ---
Respiratory/Activity/Neuro Patient maintained sats 88-96% SpO2 overnight with 1-2L O2/NC. No CPAP overnight. Occasionally apnic. Sbrady to the 40s when sleeping. Moist cough, occasionally productive. Patient slept in recliner overnight per pt request. Difficulty getting patient up, requires x2 assist and patient is only able to stand and pivot, weak legs, unsteady gait. Occasionally forgetful about situation/hospital plan. and friend stayed for part of the night. Patient states he was able to get some sleep.
[2016-10-28] MEDS: Insulin LISPRO 300 Unit/3 mL Inj SUBQ SCH ×4 (08:00→21:44)
[2016-10-28] MEDS: Nystatin 100,000 Unit/Gm 15 Gm Powder TOPICAL SCH ×2 (08:30→21:40)
[2016-10-28] MEDS ORDERED: Potassium Chloride Inj 20 MEQ in Dextrose 5% 250 ML IV ONE (09:15)
[2016-10-28] MEDS: Insulin Human NPH 100 Unit/mL Syringe SUBQ SCH (10:43)
[2016-10-28 11:00] LABS: INR 6.62 ratio
--- NOTE | 2016-10-28 11:49 | PCM.PNCARD ---
Subjective Date of service Oct 28, 2016 Chief Complaint Shortness of breath, dyspnea, confusion . History of Present Illness This is a 76 year old man who presented to the ED via EMS on 10-26-16 with worsening SOB, dyspnea, and AMS. Significant past medical hx; Mechanical aortic valve replacement 2002, CAD s/p CABG x4 on 01/11/2003, drug eluding stent placement to LCX on 10-31-2014, HTN, HLD, NAYELI, DM, subdural hematoma status post surgical drainage and craniotomy, CVA. The patient was recently discharged on 10-22-2016 from a 7 day hospital course for treatment of PNA. The patient was discharged to rehab. On Tuesday, 2016, the patient reports feeling short of breath, having a hard time breathing , being confused and feeling lethargic. Patient is a poor historian, and lethargic at times. is at bedside assisting with recollection of events. Symptoms persisted into Tuesday, and the discussed the symptoms with the doctor when he rounded. A chest xray was ordered. On , the report of the chest xray was still not known, and the patients symptoms were still continuing to progress. The let the rehab facility know that she would like the patient to go back to the hospital. Pt arrived via EMS, and was placed on BiPAP. The reports that was the first time his mentation improved, along with his shortness of breath, work of breathing, and level of alertness. Due to prior head surgeries, the patient does not tolerate BiPAP or CPAP masks well , and the patient did not leave the mask on as ordered. The patient denies having any of the following; vision changes, jaw pain, neck pain, back pain, arm pain, sweating, chills, fever, palpitations, chest pounding , MICHELE, nausea, vomiting, diarrhea. The patient does report a bloody, productive cough that has been unresolved since the recent previous admission. He also reports chronic hematuria that has had a negative bladder CA workup for in the past. ECG on admission showed NRS with RBBB with probable right atrial enlargement with ST depression in anterolateral leads. BNP was 9018, initial troponin was 0.099 with subsequent troponins of; 0.108 and 0.121. Of note, lactic acid was 2.8 on admission, WBC count was 15.4, BUN was 29. BP was 80/44. 1liter of NS was given with subsequent SBP in the 130s. Chest xray at the time showed pulmonary edema and bibasilar consolidative opacities. Previous echo demonstrated 40-45%. The patient was admitted to ICU for further care and work up. Further hospital course has included fluid restriction, continued improvement of work of breathing and shortness of breath. Patient has remained lethargic and confused. Most recent blood gas revealed a pH of 7.47 with a Pa02 of 57.7, C02 of 49, and HCO3 of 35.9. CT chest/ABD/pelvis 0n 10-27-16 demonstrated mild to moderate bilateral pleural effusions with areas of superimposed consolidation. This latter is suspected to be related to atelectasis. However developing pneumonia cannot be excluded. Subjective: Pt is lethargic, with sluggish mentation in bed. Arouses easily. In no signs of distress. at bedside. Pt reports getting to chair during the night and getting some sleep while in the chair. reports that he sleeps in a chair at home. Nurse reports no events overnight. . Additional Information: ROS Pt denies any of the following; chest pain, chest pressure, shortness of breath , nausea, vomiting, headache. . Exam Vital Signs Vital Sign - Last Date Time Temp Pulse Resp B/P Pulse Ox O2 Delivery O2 Flow Rate FiO2 10/28/16 08:21 37.0 65 20 131/65 91 Nasal Cannula 1.00 10/26/16 23:17 25 Intake and Output 10/27/16 10/27/16 10/28/16 Cumulative From/Thru 15:00 23:00 07:00 10/26/16 12:58 - 10/28/16 06:55 Intake Total 1300 ml 320 ml 4193 ml Output Total 225 ml 150 ml 525 ml Balance 1075 ml 170 ml 3668 ml Intake Oral 1300 ml 320 ml 1820 ml IV Total 2373 ml Output Urine Total 225 ml 150 ml 525 ml # Voids 5 10 # Bowel Movements 0 Additional Information: General: Nondistressed, well-developed well-nourished male HEENT: PERRLA, EOM intact. Nontender sinuses, no nasal discharge. No erythema , nor exudate present in oropharynx. No thyromegaly appreciated. CV: Regular rate and rhythm, no murmurs, gallops, or rubs appreciated. (-) JVD. 1+ edema to bilateral LE. RESP: Lung sounds clear to ausculation in all lobes, with lung sounds diminished in bilateral bases. Breathing is shallow. Chest rise is symmetric. ABD: Bowel sounds active in all 4 quadrants. Soft, rotunded, nondistended, nontender to palpation. EXT: No joint swelling, generalized anasarca. LYMPH: No cervical or axillary adenopathy appreciated NEURO: cranial nerves grossly intact, strength intact bilaterally upper and lower extremities, sensation to light touch intact bilaterally upper and lower extremities. PSYCH: Oriented to person, place, and time, however not to history. Blunted affect. Lethargic. Somulent. Sluggish mentation. Skin: No rashes. Healing ecchymosis noted on L upper arm. Lab and Diagnostics Result Diagram: 10/28/16 1020 10/28/16 0530 Assessment & Plan Assessment Acute on chronic Systolic Congestive Heart Failure with elevated troponins . . Problems: Plan - Recommend continuing to diuresis - Patient will need coronary angiography to further investigate possible CAD as contributing factor for LV dysfunction when mentation has improved, as well as clinical condition. Pt unable to lay flat at this time. Will re evaluate possibility of procedure tomorrow. - ECG ordered. Significant hypoxemia noted on most recent ABG, along with decreased level of conciseness, delayed mentation and lethargy. Tele reading overnight showed rates in the 50's with frequent mulitfactorial PVCs, couplets, a triplet, and occasional PAC. - Continue tele monitoring . Pain Evaluation: Adequate Pain Control GI Prophylaxis: H2 kings VTE Prophylaxis: Theraputic Anticoag with Warfarin VTE Mechanical Devices: Intermittant Pneumatic CD Resuscitation Status: CPR: Attempt Resuscitation Time spent 35 minutes. This patient was examined and discussed with Dr. Thorpe. . Deanna Yan Oct 28, 2016 11:49
[2016-10-28] MEDS ORDERED: Phytonadione (Adult) 2.5 MG in Dextrose 5%-Pha MIX 50 ML IV ONE ×2 (14:20→18:50)
--- NOTE | 2016-10-28 16:37 | CONS ---
[address] [address] CONSULTATION REPORT PATIENT: PIPER LATHAM : 1940 MR#: [id number] ADMIT: 10/26/2016 JOB ID: [id number] DATE OF SERVICE: 10/28/2016 REQUESTING PHYSICIAN: Dr. Carrington REASON FOR CONSULTATION: Management of hematuria. CHIEF COMPLAINT: Worsening malaise. HISTORY OF PRESENT ILLNESS: This is a 76-year-old male with multiple past medical history including coronary artery disease status post CABG x4, mechanical aortic valve replacement in 2002, chronic anticoagulant, type 2 diabetes, hypertension, dyslipidemia, obesity, severe tricuspid regurgitation, subdural hematoma status post drainage and craniotomy, sleep apnea on CPAP, BPH, and nephrolithiasis, who came to the hospital with a complaint of worsening malaise. The patient was recently admitted to [facility] between October 15 and October 22, thought to be due to sepsis and community-acquired pneumonia. The patient was transferred to [facility] on the ; however, he returned back four days after the previous discharge with a complaint of worsening fatigue, productive cough, and no energy. Renal service was consulted to evaluate persistent hematuria. According to the record the patient is known to have nonobstructing nephrolithiasis and BPH. He has been evaluated by urologist. He is on medical management for the BPH. Urinalysis last year in February did not show any microscopic hematuria. UA in August 2016 revealed RBC over 50 and 1+ protein. Another UA on October 15 and October 26 showed RBCs over 50 per high power field. Of note, he was found to have 2+ protein in the urine. Glomerulonephritis was a concern, therefore the renal service was obtained. The patient reports no history of vasculitis. No significant family history of kidney disease. The patient does not have any new skin rash, only ecchymosis noted. The patient reported having chronic productive cough over the past couple of weeks with the whitish and yellowish sputum. The patient is very low energy level. He has no fever, no chills. No worsening shortness of breath. No chest pain. He received medical management. He also was given antibiotics on the day of the admission by it was stopped since there were no evidence of active infection. His initial blood pressure was noted to be low at 80/44. He received IV fluid bolus. Diuretics and KRISTEN inhibitor have been on hold. PAST MEDICAL HISTORY: 1. Longstanding type 2 diabetes complicated by diabetic retinopathy. 2. Hypertension. 3. Coronary artery disease, status post CABG x4. 4. Mechanical aortic valve replacement in 2002. 5. Subdural hematoma status post craniotomy in 2014. 6. BPH. 7. Nephrolithiasis. 8. Sleep apnea, on CPAP. 9. Right bundle branch block. 10. Remote history of tobacco abuse. 11. Obesity. 12. Dyslipidemia. 13. Hypertension. SURGICAL HISTORY: 1. Mechanical aortic valve replacement, status post CABG and drug-eluting stent placement. 2. Subdural hematoma status post craniotomy. 3. Cataract surgery. 4. Benign chest tumor removal. 5. Shoulder surgery. 6. Appendectomy. 7. Cystoscopy. 8. Colonoscopy. FAMILY HISTORY: Brother positive for diabetes and coronary artery disease. Father of heart disease. Grandparents had history of coronary artery disease, and diabetes. Mother had history of emphysema and lung cancer. Sister had history of diabetes. SOCIAL HISTORY: [facility]. He is a former smoker. REVIEW OF SYSTEMS: Unable to obtain due to decreased level of mentation. PHYSICAL EXAMINATION: Vitals: Temperature 36.5, pulse 92, respiratory rate 26, blood pressure 111/58, O2 sat 90% with nasal cannula 1 L. General appearance: Chronically ill-looking, in no acute distress. Follows commands. Cooperative. HEENT: PERRLA. No active head trauma. No JVD. No lymphadenopathy. No thyroid enlargement. No icteric sclerae. No pallor. Heart: Regular rhythm. Normal S1 and S2. Systolic murmur noted. Lungs: Decreased breath sounds at bases. Occasional rhonchi noted. Abdomen: Soft, active bowel sounds. Nontender. Nondistended. No hepatosplenomegaly. Extremities: Trace edema on the lower extremity. LABORATORY: Sodium 147 potassium 3.4, chloride 101, bicarb 34, BUN 21, creatinine 0.7. Troponin 0.121. Albumin 3.3. UA: Random protein 63. Random creatinine 95. pH 5.5, specific gravity 1.020, protein 100, over 50 RBCs. Hemoglobin 11.5, WBC 11.7, platelets 215. ABG showed metabolic alkalosis and respiratory acidosis. pH 7.47, pCO2 49, pO2 57.7, bicarb 35.9. ASSESSMENT: Hematuria with underlying disease of nephrolithiasis and BPH. I personally looked at his urine by myself under microscopy. It appears that he has many dysmorphic RBCs, therefore glomerulonephritis is a concern. I will start the workup for glomerulonephritis. Will order complement, hepatitis B surface antigen, hepatitis C antibody, HIV, ANCA level, antiglomerular basement membrane antibody, and EMILIO with reflex. Depending upon the results we may have to proceed with kidney biopsy or bronchoscopy with biopsy if we think he has pulmonary renal syndrome. The patient now has metabolic alkalosis and respiratory acidosis. I would recommend to diurese him with IV Diamox. We will give him potassium supplement to keep potassium around four. Thank you for allowing me to participate in the care of your patient. We will add we will monitor along with you.
--- NOTE | 2016-10-28 17:16 | PCM.PNMED ---
Subjective Date of Service Oct 28, 2016 Subjective Tito Albright is a 76-year-old gentleman with a complicated medical history of subdural hematoma status post surgical drainage and craniotomy following ground- level fall, coronary artery disease status post CABG x4 plus drug-eluting stent placement, mechanical aortic valve replacement, and diabetes mellitus, and presented to the emergency department with a two day history of progressive fatigue, weakness, and cough. The patient was discharged on 10/22 to [facility] and how reportedly been hypoxic and hypotensive. Today, patient continues to be somnolent but easily arousable. We discussed the importance of using the BiPap machine because he is hypercapnic and hypoxic. He understands that it will help him feel better. However, he does not like the fact that it blows air in his face. He continues to have some SOB and cough. He denies headaches, nausea, vomiting and abdominal pain. He states that he has not had a bowel movement for several days despite taking laxatives. There were no acute events overnight. Exam Vital Signs Vital Sign - Last Date Time Temp Pulse Resp B/P Pulse Ox O2 Delivery O2 Flow Rate FiO2 10/28/16 05:31 67 10/28/16 04:19 36.5 16 124/77 98 Nasal Cannula 1.50 10/26/16 23:17 25 Intake and Output 10/27/16 10/27/16 10/28/16 Cumulative From/Thru 15:00 23:00 07:00 10/26/16 12:58 - 10/28/16 06:55 Intake Total 1300 ml 320 ml 4193 ml Output Total 225 ml 150 ml 525 ml Balance 1075 ml 170 ml 3668 ml Intake Oral 1300 ml 320 ml 1820 ml IV Total 2373 ml Output Urine Total 225 ml 150 ml 525 ml # Voids 5 10 # Bowel Movements 0 Exam General: Patient is ill-appearing but lying comfortably on bed, AAOX3, mild distress, cooperative, somnolent but arousable . HEENT: Scar on the skull with evidence of previous surgery, PERRLA, EOMI, no scleral icterus, noninjected conjunctiva, Neck: neck supple, non-tender, no lymphadenopathy, trachea midline, no JVD CV: regular rate and rhythm, s1 and s2 heard, grade 3/6 systolic murmur heard best on left lower sternal border, and a click was heard diffusely Lungs: Decreased breath sounds bilaterally, no increased work of breathing, patient on 1L supplemental oxygen Abdomen: normoactive bowel sounds on 4Q, soft, non-distended, non-tender to palpation, no organomegally, Skin: warm and dry Musculoskeletal: Weakness of upper and lower extremities bilaterally Neuro: Grossly neurologically intact, cranial nerves II through XII intact, no dyskinesia, dysmetria, or dysdiadochokinesia noted Psych: Normal mood and affect IVs and Medications Medications Reviewed: Medications were reviewed in detail Lab and Diagnostics Result Diagram: 10/28/1652910/28/16529 X-Rays, CTs and MRIs IMPRESSION: 1. Left renal calculus, which has increased in size compared to prior exam. No obstruction. 2. Unchanged appearance of masslike focus significant along the anterior aspect of the right renal pole as described above. Given stability over multiple prior exams finding could be related to a prominent renal lobulation versus extremely slow growing neoplasm. Further evaluation with ultrasound may be helpful for additional evaluation. 3. Mild to moderate bilateral pleural effusions with areas of superimposed consolidation. The latter is suspected to be related to atelectasis. However, developing pneumonia cannot be excluded. Dictated by: Jodie Merritt M.D. on 10/27/2016 at 16:32 X-RAY CHEST ONE VIEW, PORTABLE IMPRESSION: Widespread bilateral groundglass opacities suggesting pulmonary edema, with superimposed bibasilar consolidative opacities especially in the retrocardiac region although these appear grossly unchanged. Please correlate clinically.Cardiomegaly as before Approved by: Froilan Catherine M.D. on 10/26/2016 at 12:38 Cardiac Echo Impressions Cardiac Echo Impression Echocardiogram on 10/18/2016 interpretation summary The left ventricle is normal in size. The ejection fraction is estimated to be 40-45%. Compared to the prior exam, the left ventricular function is reduced. There appears to be severe hypokinesis of base to mid inferior wall extending into the base to mid postero lateral wall. Right ventricle is moderately dilated. Right ventricular systolic function is mild to moderately reduced. There is moderate to severe mitral annular calcification. No significant mitral valve stenosis. There is moderate to severe mitral regurgitation. The mitral valve mean gradient is 5 mmHg. Compared to the prior echo study, there has been an increase in the severity of mitral regurgitation. There is a mechanical aortic valve. The prosthetic aortic valve is well seated. The peak aortic velocity is 2.48 m/s. The peak aortic velocity on the previous exam was 3.53 m/s. The aortic valve mean gradient is 13.5 mmHg. There is severe tricuspid regurgitation. Compared to the prior echo exam, there has been an increase in TR severity. The right ventricular systolic pressure is estimated at 58 mmHg assuming a right atrial pressure of 15 mmHg. Compared to the prior echo exam, there has been an increase in the severity of pulmonary hypertension. There is a moderately large left-sided pleural effusion. Additional Diagnostics DateTimeAnalyzed 12:50:00 -_ pH ____7.417 - 7.320 7.420 pCO2 ___58.9__ -mmHg 41.0 51.0 pO2 ___29.5__ -mmHg 24.0 40.0 HCO3- ___37.2__ -mmol/L Assessment & Plan Tito Albright is a 76-year-old gentleman with a complicated medical history of subdural hematoma status post surgical drainage and craniotomy following ground- level fall, coronary artery disease status post CABG x4 plus drug-eluting stent placement, mechanical aortic valve replacement, and diabetes mellitus, and presented to the emergency department with a two day history of progressive fatigue, weakness, and cough. The patient was discharged on 10/22 to [facility] and how reportedly been hypoxic and hypotensive. Cardiology recommends Cardiac Catheterization to further investigate LV dysfunction. Given elevated INR, we will give Vitamin K prior to cardiac cath. Hypotension secondary to presumed dehydration, present on admission, improved - Patient presented to the ED with blood pressure of 80/44 with a lactic acidosis of 2.7 - The patient denies symptoms of ongoing infection including fever, chills, worsening cough, SOB, abdominal pain, or increased urination frequency or urgency - The patient admits to poor oral intake while continuing Lasix - On admit, Chloride of 96 with Alkalosis Bicarb of 32 which is well compensated on venous blood gas consistent with contraction alkalosis - Blood pressure improved from systolics in the 80 to systolics in the 130 with 1L NS - CXR shows consistent pulmonary edema consistent with the patient's prior Xray images from his previous hospitalization - Fractional excretion of urea ordered. Urine urea-842 - Continue conservative fluid management -Consider palliative consult given current condition and pending cardiac cath results Acute Hypercapnic hypoxic respiratory failure, present on admission, improving - no prior ABG available - venous blood gas shows elevated CO2 - Patient is clinically more somnolent that previously seen, he attributes this to poor sleep last night - Repeat ABG shows pH 7.473, pCO2 49.6, pO2 57.7 - RT to place BiPAP but patient does not tolerate it -ordered non-contrast CT of chest Acute Hypercapnic, hypoxic Encephalopathy -as evidenced by ABG -patient has been confused at times and somnolent but easily arousable, decreased level of mentation -Encouraged patient to use Bi-Pap Acute Leukocytosis with Elevated lactic acid - ED initially concerned for sepsis however patient has no signs of active infection with negative procalcitonin and previously clinically treated for pneumonia - On admit: Lactic acid 2.7 repeated to 2.8 - Likely secondary to hypotension and underlying heart failure and pulmonary hypertension with elevated CO2 - Lactic acid normalized - blood cultures and urine cultures ordered - patient started on antibiotics Vancomycin, Zosyn and Levoquin for healthcare acquired pneumonia given presentation of course breath sounds with hypotension however these will not be continued Acute on chronic Systolic Congestive Heart Failure with elevated troponins of unknown significance - Mildly elevated troponins and patient denies chest pain. 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 Blum, consulted and we appreciate her input -She has started workup for glomerulonephritis -per recommendations of nephro, ordered a KUB Elevated INR, acute, present on admission, monitoring - On admit: INR 5.28 - Likely secondary to recent chronic antibiotic use with decreased gut christiano Vit K - Patient reports compliance with Coumadin dosing and monthly monitoring in clinic - No signs of significant bleeding at time of admission, Hemoglobin is stable compared to prior records - Elevated INR likely contributing to scant hemoptysis, and hematuria - We will continue to monitor with daily coag panel -We will give Vitamin K to reverse INR since patient will undergo cardiac cath tomorrow Diabetes mellitus insulin dependant - Medium dose correctional - transition to home medications once stable - A1c 08/19/2016: 7.1 Mechanical aortic valve on chronic anticoagulation therapy - Goal INR 2.5-3.5 - Monitor -Give Vitamin K as INR is supratherapeutic History of coronary artery disease status post CABG 4 and drug-eluting stent placement - Resume home medications including atorvastatin and aspirin - Echo 2015: EF 55-60, basal inferior wall hypokinesis, moderate mitral annular calcification, moderate mitral regurgitation, mechanical aortic valve, moderate to severe tricuspid regurgitation History of insomnia and anxiety, chronic - Resume home medication trazodone 50 mg, 1-2 tabs as needed for sleep Chronic Benign Prostatic Hypertrophy - continue home finasteride and tamsulosin Code: FULL CODE DVT prophylaxis: heparin 5000 TID GI: Famotidine BID Pain Evaluation: Adequate Pain Control GI Prophylaxis: H2 kings VTE Prophylaxis: Theraputic Anticoag with Warfarin VTE Mechanical Devices: Intermittant Pneumatic CD Resuscitation Status: CPR: Attempt Resuscitation Attending Statement The patient was seen and examined together with Dr. Chambers on 10/28/2016 and I agree with the history, exam and plan as outlined in the note above. . Camilla Chambers DO Oct 28, 2016 07:31 Gianni Carrington MD Oct 30, 2016 07:42
--- NOTE | 2016-10-28 18:39 | NUR ---
Tele/Respiratory/Bipap/Output No reports of chest pain/pressure/discomfort. Tele SR 70s-80s with PVCs and an IVCD. BP within normal limits. Bilateral non pitting edema to LE and feet. INR greater than 6, received vitamin K IV as well as a potassium rider. SPO2 varies staying at 90-94% today on 1L NC. Wore bipap for approx 1 hour today while sleeping, still reports he does not like to wear it. No reports of n/v, denies abdominal pain or feeling constipated. Last BM 5 days ago, Docusate and Senna administered this AM. Poor PO intake. Continuing to void 50-100ccs of light brown urine.
[2016-10-28 23:10] LABS: INR 1.95 ratio
[2016-10-29] VITALS (7 sets, daily range): BP systolic 122–141; BP diastolic 58–84; PULSE 64–81; RESP 16–21; O2SAT 93–98
[2016-10-29] MEDS: Insulin Human NPH 100 Unit/mL Syringe SUBQ SCH ×3 (00:41→22:00)
--- NOTE | 2016-10-29 05:31 | NUR ---
Mentation/Respiratory/Urine/NPO Pt was AOx3, with no confusion at the beginning of the shift. At approximately 0300 pt began to yell for his . Pt was confused and thought that he was "not prepared in time for his surgery." Pt has been of the CPAP for a few hours at this time and was encouraged to put the CPAP back on and pt agreed to. Pt was confused and easily reoriented. Pt SpO2 >92% on 1L NC or when using CPAP. Pt has been on a continuous pulse ox throughout the night. Pt continues to frequently urinate, with hesitancy, approximately 50-100cc of brown urine. Pt has been NPO since midnight.
[2016-10-29 05:35] LABS: BASOPHILS % (AUTO) 0.2 % (0-3); EOSINOPHILS % (AUTO) 1.3 % (0-5); MONOCYTES % (AUTO) 6.4 % (4-12); Mean Corpuscular Hemoglobin 29.7 pg (27.0-35.0); Mean Corpuscular Volume 94.8 fL (81-100); NEUTROPHILS % (AUTO) 84.2 % (40-74); Platelet Count 226 bil/L (150-400)
[2016-10-29 05:59] LABS: INR 1.37 ratio
[2016-10-29] MEDS: Insulin LISPRO 300 Unit/3 mL Inj SUBQ SCH ×4 (08:00→22:00)
--- NOTE | 2016-10-29 09:41 | PCM.PNMED ---
Subjective Date of Service Oct 29, 2016 Subjective Tito Albright is a 76-year-old gentleman with a complicated medical history of subdural hematoma status post surgical drainage and craniotomy following ground- level fall, coronary artery disease status post CABG x4 plus drug-eluting stent placement, mechanical aortic valve replacement, and diabetes mellitus, and presented to the emergency department with a two day history of progressive fatigue, weakness, and cough. The patient was discharged on 10/22 to [facility] and how reportedly been hypoxic and hypotensive. Today, patient is much more alert, awake and oriented. He states that he tried using his Bipap yesterday and overnight. He notices improvement in mentation as a result. This morning, he states that he feels better than yesterday. He denies headaches, visual changes, chest pain, nausea, vomiting, abdominal pain. He notes that he remains somewhat short of breath. Overnight, nursing reports that patient was somewhat confused but easily re- oriented. 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 Based on more recent updates, the cardiac cath has been postponed for a later time Exam Vital Signs Vital Sign - Last Date Time Temp Pulse Resp B/P Pulse Ox O2 Delivery O2 Flow Rate FiO2 10/29/16 05:28 73 10/29/16 05:01 21 93 25 10/29/16 04:03 36.5 141/65 BiPAP 10/28/16 21:33 1.00 Intake and Output 10/28/16 10/28/16 10/29/16 Cumulative From/Thru 15:00 23:00 07:00 10/26/16 12:58 - 10/29/16 06:50 Intake Total 788 ml 100 ml 5081 ml Output Total 300 ml 400 ml 1225 ml Balance 488 ml -300 ml 3856 ml Intake Oral 477 ml 100 ml 2397 ml IV Total 311 ml 2684 ml Output Urine Total 300 ml 400 ml 1225 ml # Voids 10 # Bowel Movements 0 Exam General: Patient is ill-appearing but lying comfortably on bed, AAOX3, mild distress, cooperative, not somnolent like yesterday HEENT: Scar on the skull with evidence of previous surgery, PERRLA, EOMI, no scleral icterus, noninjected conjunctiva, Neck: neck supple, non-tender, no lymphadenopathy, trachea midline, no JVD CV: regular rate and rhythm, s1 and s2 heard, grade 3/6 systolic murmur heard best on left lower sternal border, and a click was heard diffusely Lungs: Decreased breath sounds bilaterally, no increased work of breathing, patient on 1L supplemental oxygen Abdomen: normoactive bowel sounds on 4Q, soft, non-distended, non-tender to palpation, no organomegally, Skin: warm and dry Musculoskeletal: Weakness of upper and lower extremities bilaterally Neuro: Grossly neurologically intact, cranial nerves II through XII intact, no dyskinesia, dysmetria, or dysdiadochokinesia noted Psych: Normal mood and affect IVs and Medications Medications Reviewed: Medications were reviewed in detail Lab and Diagnostics Result Diagram: 10/29/1651910/29/16519 X-Rays, CTs and MRIs IMPRESSION: 1. Left renal calculus, which has increased in size compared to prior exam. No obstruction. 2. Unchanged appearance of masslike focus significant along the anterior aspect of the right renal pole as described above. Given stability over multiple prior exams finding could be related to a prominent renal lobulation versus extremely slow growing neoplasm. Further evaluation with ultrasound may be helpful for additional evaluation. 3. Mild to moderate bilateral pleural effusions with areas of superimposed consolidation. The latter is suspected to be related to atelectasis. However, developing pneumonia cannot be excluded. Dictated by: Jodie Merritt M.D. on 10/27/2016 at 16:32 X-RAY CHEST ONE VIEW, PORTABLE IMPRESSION: Widespread bilateral groundglass opacities suggesting pulmonary edema, with superimposed bibasilar consolidative opacities especially in the retrocardiac region although these appear grossly unchanged. Please correlate clinically.Cardiomegaly as before Approved by: Froilan Catherine M.D. on 10/26/2016 at 12:38 Cardiac Echo Impressions Cardiac Echo Impression Echocardiogram on 10/18/2016 interpretation summary The left ventricle is normal in size. The ejection fraction is estimated to be 40-45%. Compared to the prior exam, the left ventricular function is reduced. There appears to be severe hypokinesis of base to mid inferior wall extending into the base to mid postero lateral wall. Right ventricle is moderately dilated. Right ventricular systolic function is mild to moderately reduced. There is moderate to severe mitral annular calcification. No significant mitral valve stenosis. There is moderate to severe mitral regurgitation. The mitral valve mean gradient is 5 mmHg. Compared to the prior echo study, there has been an increase in the severity of mitral regurgitation. There is a mechanical aortic valve. The prosthetic aortic valve is well seated. The peak aortic velocity is 2.48 m/s. The peak aortic velocity on the previous exam was 3.53 m/s. The aortic valve mean gradient is 13.5 mmHg. There is severe tricuspid regurgitation. Compared to the prior echo exam, there has been an increase in TR severity. The right ventricular systolic pressure is estimated at 58 mmHg assuming a right atrial pressure of 15 mmHg. Compared to the prior echo exam, there has been an increase in the severity of pulmonary hypertension. There is a moderately large left-sided pleural effusion. Additional Diagnostics DateTimeAnalyzed 12:50:00 -_ pH ____7.417 - 7.320 7.420 pCO2 ___58.9__ -mmHg 41.0 51.0 pO2 ___29.5__ -mmHg 24.0 40.0 HCO3- ___37.2__ -mmol/L Assessment & Plan Tito Albright is a 76-year-old gentleman with a complicated medical history of subdural hematoma status post surgical drainage and craniotomy following ground- level fall, coronary artery disease status post CABG x4 plus drug-eluting stent placement, mechanical aortic valve replacement, and diabetes mellitus, and presented to the emergency department with a two day history of progressive fatigue, weakness, and cough. The patient was discharged on 10/22 to [facility] and how reportedly been hypoxic and hypotensive. Cardiology recommends Cardiac Catheterization to further investigate LV dysfunction. Given elevated INR, we gave him Vitamin K. INR this morning was 1.37. The plan to undergo cardiac cath today has been postponed. Patient will be placed on a heparin drip for mechanical aortic valve until cardiac catheterization. Hypotension secondary to presumed dehydration, present on admission, improved - Patient presented to the ED with blood pressure of 80/44 with a lactic acidosis of 2.7 - The patient denies symptoms of ongoing infection including fever, chills, worsening cough, SOB, abdominal pain, or increased urination frequency or urgency - The patient admits to poor oral intake while continuing Lasix - On admit, Chloride of 96 with Alkalosis Bicarb of 32 which is well compensated on venous blood gas consistent with contraction alkalosis - Blood pressure improved from systolics in the 80 to systolics in the 130 with 1L NS - CXR shows consistent pulmonary edema consistent with the patient's prior XRay images from his previous hospitalization - Fractional excretion of urea ordered. Urine urea-842 - Continue conservative fluid management -Consider palliative consult given current condition and pending cardiac cath results Acute Hypercapnic hypoxic respiratory failure, present on admission, improving - no prior ABG available - venous blood gas shows elevated CO2 - Patient is clinically more somnolent that previously seen, he attributes this to poor sleep last night - Repeat ABG on 10/27/16 shows pH 7.473, pCO2 49.6, pO2 57.7 -. Per nephrology recommendation, Metabolic alkalosis and respiratory acidosis- IV Diamox 250 mg x 1 today. - RT to place BiPAP but patient does not tolerate it -ordered non-contrast CT of chest Acute Hypercapnic, hypoxic Encephalopathy -as evidenced by ABG -patient has been confused at times and somnolent but easily arousable, decreased level of mentation -Encouraged patient to use Bi-Pap Acute Leukocytosis with Elevated lactic acid - ED initially concerned for sepsis however patient has no signs of active infection with negative procalcitonin and previously clinically treated for pneumonia - On admit: Lactic acid 2.7 repeated to 2.8 - Likely secondary to hypotension and underlying heart failure and pulmonary hypertension with elevated CO2 - Lactic acid normalized - blood cultures and urine cultures ordered - patient started on antibiotics Vancomycin, Zosyn and Levoquin for healthcare acquired pneumonia given presentation of course breath sounds with hypotension however these will not be continued Acute on chronic Systolic Congestive Heart Failure with elevated troponins of unknown significance - Mildly elevated troponins and patient denies chest pain. 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 Blum, consulted and we appreciate her input -She has started workup for glomerulonephritis to rule out pulmonary-renal syndrome. -per recommendations of nephro, ordered a KUB, which showed renal stones Elevated INR, acute, present on admission, monitoring - On admit: INR 5.28 - Likely secondary to recent chronic antibiotic use with decreased gut christiano Vit K - Patient reports compliance with Coumadin dosing and monthly monitoring in clinic - No signs of significant bleeding at time of admission, Hemoglobin is stable compared to prior records - Elevated INR likely contributing to scant hemoptysis, and hematuria - We will continue to monitor with daily coag panel -Gave Vitamin K to reverse INR since patient was initially going to undergo cardiac cath. INR today is 1.37 -Cath has been postponed for a later time so we have started patient on a heparin drip -Will resume warfarin post cath Diabetes mellitus insulin dependant - Medium dose correctional - transition to home medications once stable - A1c 08/19/2016: 7.1 Mechanical aortic valve on chronic anticoagulation therapy - Goal INR 2.5-3.5 - Monitor -Give Vitamin K as INR is supratherapeutic --Will resume warfarin post cath History of coronary artery disease status post CABG 4 and drug-eluting stent placement - Resume home medications including atorvastatin and aspirin - Echo 2014: EF 55-60, basal inferior wall hypokinesis, moderate mitral annular calcification, moderate mitral regurgitation, mechanical aortic valve, moderate to severe tricuspid regurgitation History of insomnia and anxiety, chronic - Resume home medication trazodone 50 mg, 1-2 tabs as needed for sleep Chronic Benign Prostatic Hypertrophy - continue home finasteride and tamsulosin Code: FULL CODE DVT prophylaxis: heparin 5000 TID GI: Famotidine BID Pain Evaluation: Adequate Pain Control GI Prophylaxis: H2 kings VTE Prophylaxis: Theraputic Anticoag with Warfarin VTE Mechanical Devices: Intermittant Pneumatic CD Resuscitation Status: CPR: Attempt Resuscitation Attending Statement The patient was seen and examined together with Dr. Chambers on 10/29/2016 and I agree with the history, exam and plan as outlined in the note above. . Camilla Chambers DO Oct 29, 2016 06:57 Gianni Carrington MD Oct 30, 2016 07:42
[2016-10-29] MEDS: Nystatin 100,000 Unit/Gm 15 Gm Powder TOPICAL SCH ×2 (10:17→20:03)
--- NOTE | 2016-10-29 11:09 | PCM.PNNEPH ---
Subjective Date of Service Oct 29, 2016 Subjective INR reversed. He is being NPO for cardiac angiogram. Glomerulonephritis workup has been sent. He has no chest pain or shortness of breath. He has some productive cough. He is feeling weak but has good appetite. Exam Vital Signs Vital Sign - Last Date Time Temp Pulse Resp B/P Pulse Ox O2 Delivery O2 Flow Rate FiO2 10/29/16 05:28 73 10/29/16 05:01 21 93 25 10/29/16 04:03 36.5 141/65 BiPAP 10/28/16 21:33 1.00 Intake and Output 10/28/16 10/28/16 10/29/16 Cumulative From/Thru 15:00 23:00 07:00 10/26/16 12:58 - 10/29/16 06:50 Intake Total 788 ml 100 ml 5081 ml Output Total 300 ml 400 ml 1225 ml Balance 488 ml -300 ml 3856 ml Intake Oral 477 ml 100 ml 2397 ml IV Total 311 ml 2684 ml Output Urine Total 300 ml 400 ml 1225 ml # Voids 10 # Bowel Movements 0 Exam General appearance: Chronically ill-looking, in no acute distress. Follows commands. Cooperative. HEENT: PERRLA. No active head trauma. No JVD. No lymphadenopathy. No thyroid enlargement. No icteric sclerae. No pallor. Heart: Regular rhythm. Normal S1 and S2. Systolic murmur noted, Valve click. Lungs: Decreased breath sounds at bases. Occasional rhonchi noted. Abdomen: Soft, active bowel sounds. Nontender. Nondistended. No hepatosplenomegaly. Extremities: No edema on the lower extremity. Lab and Diagnostics Result Diagram: 10/29/1651910/29/16 0520 X-Rays, CTs and MRIs IMPRESSION: 1. Left renal calculus, which has increased in size compared to prior exam. No obstruction. 2. Unchanged appearance of masslike focus significant along the anterior aspect of the right renal pole as described above. Given stability over multiple prior exams finding could be related to a prominent renal lobulation versus extremely slow growing neoplasm. Further evaluation with ultrasound may be helpful for additional evaluation. 3. Mild to moderate bilateral pleural effusions with areas of superimposed consolidation. The latter is suspected to be related to atelectasis. However, developing pneumonia cannot be excluded. Dictated by: Jodie Merritt M.D. on 10/27/2016 at 16:32 X-RAY CHEST ONE VIEW, PORTABLE IMPRESSION: Widespread bilateral groundglass opacities suggesting pulmonary edema, with superimposed bibasilar consolidative opacities especially in the retrocardiac region although these appear grossly unchanged. Please correlate clinically.Cardiomegaly as before Approved by: Froilan Catherine M.D. on 10/26/2016 at 12:38 Cardiac Echo Impressions Cardiac Echo Impression Echocardiogram on 10/18/2016 interpretation summary The left ventricle is normal in size. The ejection fraction is estimated to be 40-45%. Compared to the prior exam, the left ventricular function is reduced. There appears to be severe hypokinesis of base to mid inferior wall extending into the base to mid postero lateral wall. Right ventricle is moderately dilated. Right ventricular systolic function is mild to moderately reduced. There is moderate to severe mitral annular calcification. No significant mitral valve stenosis. There is moderate to severe mitral regurgitation. The mitral valve mean gradient is 5 mmHg. Compared to the prior echo study, there has been an increase in the severity of mitral regurgitation. There is a mechanical aortic valve. The prosthetic aortic valve is well seated. The peak aortic velocity is 2.48 m/s. The peak aortic velocity on the previous exam was 3.53 m/s. The aortic valve mean gradient is 13.5 mmHg. There is severe tricuspid regurgitation. Compared to the prior echo exam, there has been an increase in TR severity. The right ventricular systolic pressure is estimated at 58 mmHg assuming a right atrial pressure of 15 mmHg. Compared to the prior echo exam, there has been an increase in the severity of pulmonary hypertension. There is a moderately large left-sided pleural effusion. Additional Diagnostics DateTimeAnalyzed 12:50:00 -_ pH ____7.417 - 7.320 7.420 pCO2 ___58.9__ -mmHg 41.0 51.0 pO2 ___29.5__ -mmHg 24.0 40.0 HCO3- ___37.2__ -mmol/L Plan Impression ASSESSMENT: 1. Hematuria with underlying disease of nephrolithiasis, BPH and coagulopathy. - Urine protein creatinine ratio is 0.6 g/g. - Dysmorphic RBCs identified under microscopy. - CXR: widespread bilateral pulmonary interstitial and air space opacities. - Glomerulonephritis workup has been sent to rule out pulmonary-renal syndrome. 2. HFrEF 3. Metabolic alkalosis and respiratory acidosis. - IV Diamox 250 mg x 1 today. 4. NAYELI on CPAP. 5. 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 6. Coronary artery disease status post CABG x4 plus drug-eluting stent placement. 7. Mechanical aortic valve replacement. 8. H/o subdural hematoma status post surgical drainage and craniotomy. 9. Hypertension. Jenny Martinez MD Oct 29, 2016 11:08
[2016-10-29] MEDS ORDERED: Heparin 5,000 Unit/mL Inj IVPUSH PRN (11:50)
[2016-10-29] MEDS ORDERED: Heparin 25K Unit/500mL 0.45 NS 25,000 UNIT in IV Premix 1 EACH IV SCH (11:50)
[2016-10-29] MEDS ORDERED: Furosemide 10 mg/mL 4 mL Inj IVPUSH SCH (13:25)
--- NOTE | 2016-10-29 14:29 | PROG NOTE ---
[address] [address] PROGRESS NOTE PATIENT: PIPER LATHAM : 1940 MR#: [id number] ADMIT: 10/26/2016 JOB ID: [id number] CARDIOLOGY PROGRESS NOTE: DATE: 10/29/2016 HISTORY OF PRESENT ILLNESS: The patient is a very complicated, 76-year-old male with a longstanding history of hypertension, hyperlipidemia, and diabetes, who underwent CABG and mechanical AVR in 2002, after presenting with exertional angina. He received an SOTO to the LAD and separate vein grafts to the first obtuse marginal, second obtuse marginal and PDA. An echocardiogram in 2008 suggested normal left ventricular systolic function with moderate tricuspid regurgitation, trace mitral regurgitation and normal AVR function. He saw Dr. Whipple in 2014 because of exertional dyspnea and dizziness with an echocardiogram that showed an EF of 55% to 60%, now with mild to moderate mitral regurgitation and moderately severe tricuspid regurgitation with a PAP of 38 mmHg. A subsequent Sestamibi showed a partially reversible inferior defect with an associated area of hypokinesis with an ejection fraction of 42%. I Zio patch suggested brief SVT up to 14 beats at rates of 130 but no other complex ectopy. He subsequently underwent cardiac catheterization in October 2014 which revealed a 30% left main stenosis, complete occlusion of the mid LAD, a 98% mid left circumflex lesion, and a complete occlusion of the RCA. The SOTO and vein grafts to the first and second obtuse marginals were patent although the latter with a 50% stenosis. The vein graft to the PDA was occluded. He underwent rotational atherectomy and stenting to the mid left circumflex with a single drug-eluting stent with reported improvement in his exertional dyspnea. He last saw Dr. Whipple in November 2015 and was doing well from a cardiac standpoint although still recovering from a fall requiring back surgery and complicated by a subdural hematoma in January 2015 and required a craniotomy. He was no longer using his CPAP at the time of his followup visit with Dr. Whipple. He was admitted on October 15, 2016 with increasing dyspnea, cough, and hemoptysis with oxygen saturations in the mid 80% range now with a left pleural effusion and significant pulmonary edema. His troponin was borderline elevated at 0.03 with a proBNP of 2300 and an INR of 8 with an elevated white count and lactate concerning for sepsis. An echocardiogram showed an ejection fraction now around 40% to 45% with moderately severe hypokinesis in the inferior and posterolateral wall, worse compared to previous with moderate right ventricular enlargement with mild-moderate right ventricular hypokinesis, now with moderately severe pulmonary hypertension with PAP estimated at 58 mmHg with severe tricuspid and moderately severe mitral regurgitation. The aortic valve was felt to be functioning normally. CVP was 15 mmHg. He was felt to have pneumonia and was treated with antibiotics with symptomatic improvement. His enalapril was stopped because of hyperkalemia. Over his hospitalization, he had a positive fluid balance with a 4 kg weight gain and was discharged on October 22, 2016, although readmitted on October 26, 2016 with increasing weakness, dyspnea, and a bloody cough with hypotension with blood pressures in the 80s and oxygen saturations again in the 80s. His lactate was again elevated at 2.7 and an ABG showed a pH of 7.47 with a pCO2 of 50 and a pO2 of 58 on room air. BUN was 29 with creatinine 0.9 and his BNP was over 9000. His chest CT showed moderate size bilateral pleural effusions with some ground-glass appearance concerning for edema. I have personally reviewed these images with the radiologist who feels that this most likely reflects pulmonary congestion. He was initially treated with IV fluids but became lethargic and somnolent and required BiPAP and with this had significant improvement in his mental status. His troponins have remained mildly elevated at 0.1 increasing to 0.12. He has been seen by Nephrology because of hematuria who recommended diuresis with Diamox. His lactate is improved and his INR was elevated but reversed with vitamin K, and was 1.4 today. Today, he feels significantly improved with less dyspnea although remains short of breath supine. He continues to have a mild cough productive of yellow sputum but denies any hemoptysis. He had no chest discomfort. He had some mild edema over the last several weeks although this was not a prominent feature. His concurs that he appears much improved today. PHYSICAL EXAMINATION: Moderately obese, elderly male, in no distress. HR 79 although was as low as 45/90. BP has generally been in the 125-145 range. He has continued to have a positive fluid balance over the last two days of around 2.8 L. His weight is not recorded today. Yesterday's weight reportedly was down 12 kg but is likely erroneous. O2 saturation was 97% on 2 L. Skin: Warm and dry. Lungs: Dullness to percussion with reduced breath sounds half-way up both lung omer but without any obvious rales or wheeze. CV: Regular rate and rhythm with occasional premature beat with a II/ systolic ejection murmur radiating to both carotids. JVP is difficult to assess because of nuchal obesity but I suspect it is elevated. Carotid pulses are faint without any bruit. Abdomen: Moderately obese but nondistended, nontender without any hepatosplenomegaly. Extremities warm with trace edema. LABORATORY DATA: Sodium this morning was 145 with a potassium of 3.6, up from 3.4 yesterday. BUN is 20 with a creatinine of 0.6. Glucose 123. LFTs have remained normal. Albumin is somewhat low at 3.3. His lactate improved from 2.9 down to 1.9 several days ago. IMAGING: Chest CT as above. ECG: Shows sinus rhythm at 60 bpm with a PAC. He has a right bundle and left posterior fascicular block with diffuse ST-segment abnormalities. IMPRESSION: 1. Respiratory failure, likely multifactorial. I suspect that he has had some degree of an infectious process contributing to his respiratory failure likely on top of chronic hypoventilation from his obesity and chronic obstructive pulmonary disease, perhaps with some central component following his subdural hematoma. Yet, I also suspect that he has significant pulmonary congestion and pulmonary edema contributing to his pleural effusions. As such, I would advocate for fairly aggressive diuresis with close observation of his electrolytes and renal function. I would initially attempt medical therapy, but at some point he may require a cardiac catheterization to reassess his coronary anatomy as well as his filling pressures. Repeat echocardiogram could be pursued to reassess his filling pressures and pulmonary pressures as well. In the meantime, I will stop his atenolol which has limited value in the setting of congestive heart failure. If he does require beta-blockade, metoprolol or carvedilol are the beta blockers of choice. I would also like to see some afterload reduction and will start him on topical nitrates with consideration for restarting KRISTEN inhibitors. He is not a candidate for cardiac catheterization until he is able to lie supine. If he can be clinically stabilized, then this may be able to be deferred to the outpatient setting to ensure the clearing of any infectious process. In the meantime, I would continue with heparin to leave open the option of an invasive evaluation. 2. Coronary artery disease, status post coronary artery bypass graft and stenting as above. I suspect that his troponin elevation is more likely a reflection of demand ischemia in conjunction with his hypoxia rather than an acute coronary event as there has been no significant ST-segment evolution. Again, at some point, an ischemic evaluation should be pursued. 3. Status post aortic valve replacement, on chronic anticoagulation with over-anticoagulation. This appears to be functioning normally by his most recent echocardiogram but will need to be followed. 4. Moderate-severe pulmonary hypertension. Again likely multifactorial in part due to his sleep apnea, possible infectious pulmonary process, and his mitral regurgitation. Hopefully this will improve with diuresis. I have strongly encouraged him to consider restarting his CPAP therapy. 5. Moderately severe mitral regurgitation. This may have been a manifestation of his volume overload. Hopefully will improve with diuresis but will need to be followed. 6. Cardiomyopathy. Again, possibly related to his sepsis like syndrome and metabolic acidosis with hypoxia. Repeat echocardiography can be considered to reassess valvular and ventricular function at some point. 7. Hematuria. Per the Nephrology service. 8. Diabetes. Per the hospitalist. RECOMMENDATION: 1. Stop atenolol with consideration for restarting metoprolol or carvedilol. 2. Initiate IV diuresis with IV furosemide with potassium and magnesium supplementation with close monitoring of his electrolytes and renal function maintaining a potassium level greater than 4.0, and a magnesium level greater than 2.0. 3. Continue to check daily weights and Is and Os. 4. [place] long-acting nitrates for afterload reduction with consideration to changing to KRISTEN inhibitor. 5. Anticipate repeating a limited echocardiogram in several days to reassess valvular and ventricular function with a final decision to proceed with cardiac catheterization depending upon his clinical course. This may be able to be deferred to the outpatient setting. In the meantime, I would continue with IV heparin. I expect he will require several more days of hospitalization. TIME SPENT: I spent 1 hour and 30 minutes reviewing all of the patient's previous studies, conferring with the radiologist, examining and interviewing the patient, and documenting such. DONOVAN
[2016-10-29] MEDS ORDERED: ACETAZOLAMIDE IV ONE (16:00)
[2016-10-29] MEDS ORDERED: DEXTROSE 5% IV ONE (16:00)
[2016-10-29] MEDS: Potassium Chloride 20 mEq SR Tablet PO SCH ×2 (16:13→20:02)
[2016-10-29] MEDS: Nitroglycerin 2% 1 Gm Ointment TOPICAL SCH ×2 (16:14→22:00)
--- NOTE | 2016-10-29 16:15 | NUR ---
Difficult IV access/start, so US obtained to assess veinous occupancy for a PICC line. Veins on each side are right around 71%, so too small to cannulate for a PICC. RN and MD made aware. Patient has had PICC and CVL's before for this problem.
--- NOTE | 2016-10-29 18:07 | NUR ---
No IV site available Several meds held due to no IV access. IV therapy tried several time with no success. MD's order to place PICC however FORENSICS ANALYST stating unable to at this time. Resident aware. Awaiting new orders.
[2016-10-30] VITALS (12 sets, daily range): BP systolic 121–157; BP diastolic 65–82; PULSE 67–83; RESP 16–22; O2SAT 94–98
[2016-10-30] MEDS: Nitroglycerin 2% 1 Gm Ointment TOPICAL SCH ×2 (03:57→09:07)
--- NOTE | 2016-10-30 06:28 | NUR ---
IV Access/Lovenox SQ Started/BiPAP Pt still has not IV access at this time. IV therapy tried to start a PIV on the pt but were not successful. Since a Heparin drip can not be started the pt is now on Lovenox SQ. The Lovenox did not arrive in time to administer to the pt at the 1800 scheduled time so the pt received the medication at approximately 2000. Pt's next Lovenox SQ is due at approximately 0800 this AM along with other medications that the pt is taking. Pt did not want to wear the BiPAP with sleep and refused to put it on once his left and went home. Pt did wear it from approximately 1900 until 2029.
[2016-10-30] MEDS: Insulin LISPRO 300 Unit/3 mL Inj SUBQ SCH ×4 (08:00→21:50)
[2016-10-30 08:12] LABS: BASOPHILS % (AUTO) 0.3 % (0-3); EOSINOPHILS % (AUTO) 1.1 % (0-5); Mean Corpuscular Hemoglobin 29.6 pg (27.0-35.0); Mean Corpuscular Volume 94.9 fL (81-100); NEUTROPHILS % (AUTO) 77.1 % (40-74); Platelet Count 245 bil/L (150-400)
[2016-10-30] MEDS: Potassium Chloride 20 mEq SR Tablet PO SCH ×2 (09:08→21:45)
[2016-10-30] MEDS: Insulin Human NPH 100 Unit/mL Syringe SUBQ SCH ×2 (09:09→21:46)
[2016-10-30] MEDS: Nystatin 100,000 Unit/Gm 15 Gm Powder TOPICAL SCH ×2 (09:10→21:46)
--- NOTE | 2016-10-30 12:00 | PROG NOTE ---
[address] [address] PROGRESS NOTE PATIENT: PIPER LATHAM : 1940 MR#: [id number] ADMIT: 10/26/2016 JOB ID: [id number] DATE: 10/30/2016 CARDIOLOGY PROGRESS NOTE: SUBJECTIVE: The patient feels significantly improved today, predominantly by feeling that he has more strength, and was able to get to a bedside chair for the first time. He also states that his breathing has significantly improved. While he continues to have challenges lying flat, he now states this is more due to chronic back and neck discomfort and does not note any significant supine dyspnea. He has had no chest discomfort. He remains quite concerned about the cost of his care and long-term extended care facility expenses. OBJECTIVE: Severely obese elderly male, sitting in a chair, in no distress and quite conversant. HR 75. BP 129/76. O2 saturation 95% on 2 L. He has a reported net diuresis of only around 200 mL today, with a positive fluid balance before that, although his weight is reportedly down 4 kg from the , most likely an error. Skin: Warm and dry. Lungs: Dullness at both bases to percussion, with reduced breath sounds but no appreciable rales or wheeze. CV: Distant heart tones with a 2/6 systolic ejection murmur but no other murmurs appreciated. JVP is difficult to assess but does not appear to be obviously distended. Abdomen: Soft, nondistended, nontender, without any palpable masses or organomegaly. Extremities: Warm, without any edema. LABORATORY: White count this morning is 11.5, with hematocrit of 37%. Sodium is 146 with a potassium of 3.5 and a bicarb of 33 with a BUN of 19 and a creatinine of 0.8. Glucose was low this morning at 49. Albumin low at 3.0. Lactate was normal at 1.3. Telemetry: Shows sinus rhythm, generally at 60-80 BPM, with occasional PVCs. IMPRESSION: 1. Respiratory failure, likely multifactorial. He is significantly symptomatically improved. His volume status remains challenging to assess because of the multiple etiologies of his respiratory failure and his obesity. I would continue with diuretic therapy and will repeat an echocardiogram tomorrow to reassess filling pressures, LV function, and the degree of mitral regurgitation. I would like to see further afterload reduction and will transition him back to an KRISTEN inhibitor. He was previously on enalapril 20 mg b.i.d. and I will start him at 10 mg b.i.d. This may help reduce his potassium supplementation needs. If his echocardiogram suggests improvement in LV systolic function and filling pressures, then I do not believe that cardiac catheterization is necessary at this point, and I suspect that his LV systolic function was more likely a reflection of his sepsis-like syndrome. If he continues to have significantly reduced LV systolic function, elevated filling pressures, and/or significant mitral regurgitation, then catheterization should be pursued. Once that decision is made, then his anticoagulation can be transitioned back to warfarin. In the meantime, he should be maintained on IV heparin. 2. Coronary artery disease status post coronary artery bypass graft. As above. 3. Status post aortic valve replacement. He should be maintained on IV heparin or Lovenox until he reaches therapeutic levels of INR. 4. Moderately severe pulmonary hypertension. Will be reassessed by echocardiography. 5. Moderately severe mitral regurgitation. Will be reassessed by echocardiography. 6. Sleep apnea. He states that he was able to tolerate his CPAP for around 4 hours yesterday. I have encouraged him to continue to do so as an outpatient. 7. Hematuria. Per the requirements manager. 8. Diabetes with hypoglycemia documented this morning. Management per the hospitalist. PLAN: 1. Stop topical nitrates and start lisinopril 10 mg b.i.d. with close observation of electrolytes and renal function. 2. Continue with diuresis. 3. Obtain an echocardiogram tomorrow. 4. Depending on results, either proceed with cardiac catheterization or restart warfarin at that point in anticipation of discharge with possible outpatient ischemic evaluation. TIME: I spent 40 minutes reviewing the patient's medical record, interviewing and examining the patient, and answering his questions.
--- NOTE | 2016-10-30 14:48 | PCM.PNMED ---
Subjective Date of Service Oct 30, 2016 Subjective Tito Albright is a 76-year-old gentleman with a complicated medical history of subdural hematoma status post surgical drainage and craniotomy following ground- level fall, coronary artery disease status post CABG x4 plus drug-eluting stent placement, mechanical aortic valve replacement, and diabetes mellitus, and presented to the emergency department with a two day history of progressive fatigue, weakness, and cough. The patient was discharged on 10/22 to [facility] and how reportedly been hypoxic and hypotensive. This morning, patient was sitting on chair by bedside. He states that he did not want to wear his BiPap overnight yesterday. However, he says that he will attempt to wear it more today. He is alert, awake, and oriented with clear mentation. He attempted to work with Physical Therapy and was able to walk in the hallway, which is a huge improvement for him. On ROS, he reports mild SOB. He denies headaches, visual changes, chest pain, nausea, vomiting and abdominal pain. Yesterday, IV therapy attempted to put a PICC line but was unsuccessful. Patient currently does not have an IV access. There were no acute events overnight Exam Vital Signs Vital Sign - Last Date Time Temp Pulse Resp B/P Pulse Ox O2 Delivery O2 Flow Rate FiO2 10/30/16 05:54 67 10/30/16 03:47 36.5 20 141/74 98 Nasal Cannula 2.00 10/29/16 19:50 25 Intake and Output 10/29/16 10/29/16 10/30/16 Cumulative From/Thru 15:00 23:00 07:00 10/26/16 12:58 - 10/30/16 06:16 Intake Total 1240 ml 300 ml 6621 ml Output Total 475 ml 500 ml 2200 ml Balance 765 ml -200 ml 4421 ml Intake Oral 1240 ml 300 ml 3937 ml IV Total 2684 ml Output Urine Total 475 ml 500 ml 2200 ml # Voids 3 13 # Bowel Movements 1 1 2 Exam General: Patient is ill-appearing but sitting comfortable on chair bedside, AAOX3, mild distress, cooperative, not somnolent like yesterday HEENT: Scar on the skull with evidence of previous surgery, PERRLA, EOMI, no scleral icterus, noninjected conjunctiva, Neck: neck supple, non-tender, no lymphadenopathy, trachea midline, no JVD CV: regular rate and rhythm, s1 and s2 heard, grade 3/6 systolic murmur heard best on left lower sternal border, and a click was heard diffusely Lungs: Decreased breath sounds bilaterally, no increased work of breathing, patient on 1L supplemental oxygen Abdomen: normoactive bowel sounds on 4Q, soft, non-distended, non-tender to palpation, no organomegally, Skin: warm and dry Musculoskeletal: Weakness of upper and lower extremities bilaterally Neuro: Grossly neurologically intact, cranial nerves II through XII intact, no dyskinesia, dysmetria, or dysdiadochokinesia noted Psych: Normal mood and affect IVs and Medications Medications Reviewed: Medications were reviewed in detail Lab and Diagnostics Laboratory Tests Test 10/30/16 07:56 White Blood Count 11.5th/mm3 (3.8-10.1) Red Blood Count 3.89mil/mm3 (4.40-5.80) Hemoglobin 11.5g/dL (13.8-17.2) Hematocrit 36.9% (41.0-50.0) Mean Corpuscular Volume 94.9fL (81-100) Mean Corpuscular Hemoglobin 29.6pg (27.0-35.0) Mean Corpuscular Hemoglobin Concent 31.2% (32.0-37.0) Red Cell Distribution Width 17.4% (12.3-15.4) Platelet Count 245bil/L (150-400) Neutrophils (%) (Auto) 77.1% (40-74) Lymphocytes (%) (Auto) 12.2% (14-46) Monocytes (%) (Auto) 9.0% (4-12) Eosinophils (%) (Auto) 1.1% (0-5) Basophils (%) (Auto) 0.3% (0-3) Activated Partial Thromboplast Time 31.5sec (22.8-33.0) Sodium Level 146mEq/L (134-144) Potassium Level 3.5mEq/L (3.5-5.2) Chloride Level 101mEq/L (97-108) Carbon Dioxide Level 33mmol/L (18-29) Blood Urea Nitrogen 19mg/dL (8-27) Creatinine 0.77mg/dL (0.76-1.27) Estimat Glomerular Filtration Rate 105mL/min (>59) Glucose Level 49mg/dL (60-99) Lactic Acid Level 1.3mmol/L (0.4-2.0) Calcium Level 9.0mg/dL (8.5-10.1) Magnesium Level 2.0mg/dL (1.6-2.6) Total Bilirubin 0.8mg/dL (0.0-1.2) Aspartate Amino Transf (AST/SGOT) 22U/L (0-50) Alanine Aminotransferase (ALT/SGPT) 15U/L (0-44) Alkaline Phosphatase 107U/L (25-160) Total Protein 6.4g/dL (6.4-8.4) Albumin 3.0g/dL (3.4-5.0) Procalcitonin 0.06ng/mL (0.00-0.08) Microbiology 10/26/16 Blood Culture - Preliminary, Resulted No growth at 2 days; culture examined... 10/28/16 MRSA (PCR) - Final, Complete 10/26/16 Urine Culture - Final, Complete Marivel Albicans Result Diagram: 10/29/16 0520 10/29/16 0520 X-Rays, CTs and MRIs IMPRESSION: 1. Left renal calculus, which has increased in size compared to prior exam. No obstruction. 2. Unchanged appearance of masslike focus significant along the anterior aspect of the right renal pole as described above. Given stability over multiple prior exams finding could be related to a prominent renal lobulation versus extremely slow growing neoplasm. Further evaluation with ultrasound may be helpful for additional evaluation. 3. Mild to moderate bilateral pleural effusions with areas of superimposed consolidation. The latter is suspected to be related to atelectasis. However, developing pneumonia cannot be excluded. Dictated by: Jodie Merritt M.D. on 10/27/2016 at 16:32 X-RAY CHEST ONE VIEW, PORTABLE IMPRESSION: Widespread bilateral groundglass opacities suggesting pulmonary edema, with superimposed bibasilar consolidative opacities especially in the retrocardiac region although these appear grossly unchanged. Please correlate clinically.Cardiomegaly as before Approved by: Froilan Catherine M.D. on 10/26/2016 at 12:38 Cardiac Echo Impressions Cardiac Echo Impression Echocardiogram on 10/18/2016 interpretation summary The left ventricle is normal in size. The ejection fraction is estimated to be 40-45%. Compared to the prior exam, the left ventricular function is reduced. There appears to be severe hypokinesis of base to mid inferior wall extending into the base to mid postero lateral wall. Right ventricle is moderately dilated. Right ventricular systolic function is mild to moderately reduced. There is moderate to severe mitral annular calcification. No significant mitral valve stenosis. There is moderate to severe mitral regurgitation. The mitral valve mean gradient is 5 mmHg. Compared to the prior echo study, there has been an increase in the severity of mitral regurgitation. There is a mechanical aortic valve. The prosthetic aortic valve is well seated. The peak aortic velocity is 2.48 m/s. The peak aortic velocity on the previous exam was 3.53 m/s. The aortic valve mean gradient is 13.5 mmHg. There is severe tricuspid regurgitation. Compared to the prior echo exam, there has been an increase in TR severity. The right ventricular systolic pressure is estimated at 58 mmHg assuming a right atrial pressure of 15 mmHg. Compared to the prior echo exam, there has been an increase in the severity of pulmonary hypertension. There is a moderately large left-sided pleural effusion. Additional Diagnostics DateTimeAnalyzed 12:50:00 -_ pH ____7.417 - 7.320 7.420 pCO2 ___58.9__ -mmHg 41.0 51.0 pO2 ___29.5__ -mmHg 24.0 40.0 HCO3- ___37.2__ -mmol/L Assessment & Plan Tito Albright is a 76-year-old gentleman with a complicated medical history of subdural hematoma status post surgical drainage and craniotomy following ground- level fall, coronary artery disease status post CABG x4 plus drug-eluting stent placement, mechanical aortic valve replacement, and diabetes mellitus, and presented to the emergency department with a two day history of progressive fatigue, weakness, and cough. The patient was discharged on 10/22 to [facility] and how reportedly been hypoxic and hypotensive. Per cardiology, we will continue with diuresis, Strict I&Os, get a repeat limited ECHO tomorrow and cardiology will make recommendations regarding a possible cardiac catheterization on Tuesday based on ECHO results. Acute on chronic Systolic Congestive Heart Failure with elevated troponins of unknown significance - Mildly elevated troponins and patient denies chest pain. Troponins continue to trend up, 0.099, 0.108, 0.121 - EF of 40-45% on previous ECHO - Patient appears dry with dry mucus membranes and no noted JVD, however with CXR showing more pulmonary edema than previously seen. Volume status has been difficult to assess -Strict Is and Os and daily weights -Cardiology, Dr. Guzmán has been consulted and we appreciate his input -Patient has been restarted on Lasix 40 mg po bid and lisinopril 10 mg po bid -Repeat limited ECHO in the am. Per cardiology, if ECHO shows worsening cardiac function, then cardiac catheterization is likely on Tuesday Hypotension secondary to presumed dehydration, present on admission, improved - Patient presented to the ED with blood pressure of 80/44 with a lactic acidosis of 2.7 - The patient denies symptoms of ongoing infection including fever, chills, worsening cough, SOB, abdominal pain, or increased urination frequency or urgency - The patient admits to poor oral intake while continuing Lasix - On admit, Chloride of 96 with Alkalosis Bicarb of 32 which is well compensated on venous blood gas consistent with contraction alkalosis - Blood pressure improved from systolics in the 80 to systolics in the 130 with 1L NS - CXR shows consistent pulmonary edema consistent with the patient's prior XRay images from his previous hospitalization - Fractional excretion of urea ordered. Urine urea-842 - Continue conservative fluid management. Patient has been restarted on Lasix 40 mg po bid -Consider palliative consult given current condition and pending cardiac cath results Acute Hypercapnic hypoxic respiratory failure, present on admission, improving - no prior ABG available - venous blood gas shows elevated CO2 - Patient is clinically more somnolent that previously seen, he attributes this to poor sleep last night - Repeat ABG on 10/27/16 shows pH 7.473, pCO2 49.6, pO2 57.7 -. Per nephrology recommendation, Metabolic alkalosis and respiratory acidosis- IV Diamox 250 mg x 1. Unable to administer as patient has no IV access - RT to place BiPAP but patient does not tolerate it. Patient will try to wear bipap as much as he can. Mentation has greatly improved. -ordered non-contrast CT of chest which showed Mild to moderate bilateral pleural effusions with areas of superimposed consolidation Acute Hypercapnic, hypoxic Encephalopathy -as evidenced by ABG -patient has been confused at times and somnolent but easily arousable with decreased level of mentation -This has greatly improved with use of Bi-pap. Today, patient is AAO X3 -Encouraged patient to use Bi-Pap Acute Leukocytosis with Elevated lactic acid - ED initially concerned for sepsis however patient has no signs of active infection with negative procalcitonin and previously clinically treated for pneumonia - On admit: Lactic acid 2.7 repeated to 2.8 - Likely secondary to hypotension and underlying heart failure and pulmonary hypertension with elevated CO2 - Lactic acid normalized - blood cultures and urine cultures ordered - patient started on antibiotics Vancomycin, Zosyn and Levoquin for healthcare acquired pneumonia given presentation of course breath sounds with hypotension however these will not be continued Pulmonary Hypertension and severe tricuspid valve regurgitation -Noted on ECHO from prior hospitalization -Cardiology has been consulted -recommended out patient follow-up 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 Blum, consulted and we appreciate her input -She has started workup for glomerulonephritis to rule out pulmonary-renal syndrome. -per recommendations of nephro, ordered a KUB, which showed renal stones Elevated INR, acute, present on admission, monitoring - On admit: INR 5.28 - Likely secondary to recent chronic antibiotic use with decreased gut christiano Vit K - Patient reports compliance with Coumadin dosing and monthly monitoring in clinic - No signs of significant bleeding at time of admission, Hemoglobin is stable compared to prior records - Elevated INR likely contributing to scant hemoptysis, and hematuria - We will continue to monitor with daily coag panel -Gave Vitamin K to reverse INR since patient was initially going to undergo cardiac cath. INR today is 1.37 -Cath has been postponed for a later time so we have started patient on a heparin drip -Will resume warfarin post cath Diabetes mellitus insulin dependant - Medium dose correctional - transition to home medications once stable - A1c 08/19/2016: 7.1 Mechanical aortic valve on chronic anticoagulation therapy - Goal INR 2.5-3.5 - Monitor -Give Vitamin K as INR is supratherapeutic --Will resume warfarin post cath History of coronary artery disease status post CABG 4 and drug-eluting stent placement - Resume home medications including atorvastatin and aspirin - Echo 2015: EF 55-60, basal inferior wall hypokinesis, moderate mitral annular calcification, moderate mitral regurgitation, mechanical aortic valve, moderate to severe tricuspid regurgitation History of insomnia and anxiety, chronic - Resume home medication trazodone 50 mg, 1-2 tabs as needed for sleep Chronic Benign Prostatic Hypertrophy - continue home finasteride and tamsulosin Code: FULL CODE DVT prophylaxis: heparin 5000 TID GI: Famotidine BID Disposition: Patient will undergo repeat limited ECHO tomorrow. Cardiology will assess ECHO results and make recommendations as to whether or not they would pursue cardiac catheterization. We will continue to encourage patient to wear Bipap mask and ambulate with physical therapy. GI Prophylaxis: H2 kings VTE Prophylaxis: Theraputic Anticoag with Warfarin VTE Mechanical Devices: Intermittant Pneumatic CD Resuscitation Status: CPR: Attempt Resuscitation Attending Statement The patient was seen and examined together with Dr. Chambers on 10/30/2016 and I agree with the history, exam and plan as outlined in the note above. . Camilla Chambers DO Oct 30, 2016 07:41 Gianni Carrington MD Oct 30, 2016 18:27
--- NOTE | 2016-10-30 16:19 | NUR ---
Activity/Bipap Pt able to transfer from bed to chair with FWW and 1PA, slow steady gait. Reminded pt to increase activity and increase bibap use. Pt verbalized understanding. Pt has been up in the chair most of the day now and able to work with Physical therapy (see physcial therapy's note). Pt has now been on Bipap for about 2hours without interruption, will use it for an other hour. Pt tolerating Bipap well with no c/o SOB and with SpO2 mid to high 90s.
--- NOTE | 2016-10-30 17:30 | NUR ---
Social Work: Continued D/C Planning D: Per EMR review, pt is on day 4 of hospitalization for sepsis, pneumonia, pulmonary edema. Pt is anticipated to return to [facility] when medically ready, pt continues to be agreeable to this. Pt will be followed by Dr. Olson. SW will continue to follow for needs. A: Pt who will return to skilled rehab at time of discharge. P: Pt is likely to return to [facility] at time of discharge. [facility] has accepted pt back with Dr. Olson to follow. Lia Agrawal, SOL[employer] MECH[employer]ICAL ENGINEER
[2016-10-31] VITALS (8 sets, daily range): BP systolic 113–149; BP diastolic 55–81; PULSE 73–100; RESP 16–22; O2SAT 94–99
[2016-10-31 07:06] LABS: BASOPHILS % (AUTO) 0.3 % (0-3); EOSINOPHILS % (AUTO) 1.5 % (0-5); MONOCYTES % (AUTO) 9.4 % (4-12); Mean Corpuscular Hemoglobin 29.2 pg (27.0-35.0); Mean Corpuscular Volume 94.9 fL (81-100); NEUTROPHILS % (AUTO) 78.4 % (40-74); Platelet Count 209 bil/L (150-400)
[2016-10-31 07:48] LABS: Magnesium 1.9 mg/dL (1.6-2.6)
--- NOTE | 2016-10-31 08:33 | NUR ---
Daily Weight/BiPap Pt was able to get up onto the standing scale this AM for his daily weight. Pt was able to tolerate wearing the BiPap for spurts during the night. There are times written down on the pt's white board to show the times that the pt was able to keep the BiPap on and tolerate it. Oncoming RN is aware.
[2016-10-31] MEDS: Potassium Chloride 20 mEq SR Tablet PO SCH ×2 (09:28→21:59)
[2016-10-31] MEDS: Insulin LISPRO 300 Unit/3 mL Inj SUBQ SCH ×4 (09:29→22:00)
[2016-10-31] MEDS: Nystatin 100,000 Unit/Gm 15 Gm Powder TOPICAL SCH ×2 (09:29→21:58)
[2016-10-31] MEDS: Insulin Human NPH 100 Unit/mL Syringe SUBQ SCH ×2 (09:29→22:01)
--- NOTE | 2016-10-31 13:24 | DRSVH ---
[facility] [address] [place] [address] Echocardiogram Report Name: PIPER LATHAM Armando e: 10/31/2016 Height: 68 in Hospital Exam Location: [facility] Weight: 227 lb Gender: Male BSA: 2.2 m2 : 1940 Age: 76 yrs BP: 116/ 55 mmHg Reason For Study: CHF Ordering Physician: Gianni Guzmán Performed By: Renuka Baca Referring Physician: [facility] Interpretation Summary Left ventricular systolic function is mild to moderately reduced with the ejection fraction visually estimated to be 45-50% with significant hypokinesis of the proximal inferioposterior segment that is unchanged from the previous study but global LV function has improved. There are no other obvious focal wall motion abnormalities. Compared to the prior exam, left ventricular function has slightly improved. There is mild concentric left ventricular hypertrophy. The right ventricle is normal in size and function and has significally improved in both compared to the previous study. The right ventricular systolic pressure is estimated at least 53 mmHg assuming a right atrial pressure of 8 mm Hg, and both are likely lower compared to the previous study. The mitral valve leaflets are moderately calcified with probable mild mitral stenosis and moderate mitral regurgitation although the latter appears improved compared to the previous study. There is mild to moderate tricuspid regurgitation that is markedly improved compared to the previous study. There is a moderate left-sided pleural effusion that appears significantly smaller compared to the previous study. Procedure: A two-dimensional transthoracic echocardiogram with color flow and Doppler was performed in limited views only. The study quality was technically difficult. Comparison is made with the echocardiogram of 10/18/16. Unable to use Definity contrast due to unobtainable IV. The patient had a bundle branch block rhythm during the exam. The patient had frequent PVCs during the exam. Left Ventricle: There is mild concentric left ventricular hypertrophy. The left ventricle is normal in size. Left ventricular systolic function is mild to moderately reduced. The ejection fraction is estimated to be 45-50%. Compared to the prior exam, left ventricular function is slightly improved. There continues to be significant hypokinesis of the proximal inferioposterior segment but global LV function has improved. There are no other obvious focal wall motion abnormalities. Right Ventricle: The right ventricle is normal in size and function. This is significally improved in size and function compared to the previous study. Mitral Valve: There is moderate mitral annular calcification. The mitral valve leaflets are moderately calcified. There is mild mitral stenosis. The mitral valve mean gradient is 6 mmHg. There is moderate mitral regurgitation. This is improved compared to the previous study. Tricuspid Valve: There is mild to moderate tricuspid regurgitation. Compared to the prior echo exam, there has been a decrease in TR severity. The right ventricular systolic pressure is estimated at least 53 mmHg assuming a right atrial pressure of 8 mm Hg. This is likely lower compared to the previous study. Pulmonic Valve: The pulmonic valve leaflets are thin and pliable; valve motion is normal. There is mild pulmonic regurgitation. Great Vessels: The IVC is dilated (diameter is greater than 2.1 cm) yet it collapses greater than 50% with a sniff. This suggests a right atrial pressure of 8 mm Hg. Pericardium/ Pleura There is no pericardial effusion. There is a moderate left-sided pleural effusion. This is significantly smaller compared to the previous study. MMode/2D Measurements & Calculations LVIDd: 5.6 cm IVC diam: 2.3 cm LVIDs: 4.2 cm FS: 24.3 % IVSd: 1.3 cm LVPWd: 1.1 cm LV hamilton. diameter/BSA (cm/m^2): 2.6 LV sys. diameter/BSA (cm/m^2): 2.0 Doppler Measurements & Calculations TR max zoie: 336.8 cm/sec MV V2 mean: 108.7 cm/sec TR max P.4 mmHg MV mean P.5 mmHg MV V2 VTI: 41.6 cm Reading Physician:01:23 PM
--- NOTE | 2016-10-31 14:47 | PROG NOTE ---
[address] [address] PROGRESS NOTE PATIENT: PIPER LATHAM : 1940 MR#: [id number] ADMIT: 10/26/2016 JOB ID: [id number] DATE: 10/31/2016 The patient continues to feel that he gains strength and was able to walk into the hallways this morning. He also believes that his dyspnea continues to improve and essentially denies any significant dyspnea at this point. He does not feel that his overall exercise capacity is yet back to his baseline. He denies any chest discomfort and has had no lightheadedness. He remains anxious to be discharged and is hoping to avoid an extended stay at any intermediate. I reviewed with him the results of his echocardiogram from this morning that shows improved LV systolic function, now with an EF of around 45% to 50% with global improvement in LV function, although he continues to have an inferoposterior wall motion abnormality that remains essentially unchanged but no other focal abnormality. The right ventricle appears significantly smaller and more dynamic compared to his previous echocardiogram, and while his pulmonary artery pressures remain moderately elevated, likely in the low 50s, this is lower than previous and his CVP is now estimated to be closer to 5-8 mmHg compared to 15 mmHg previously. He has a significantly calcified mitral valve with probable mild mitral stenosis with probable moderate mitral regurgitation that appears improved from the previous study and his tricuspid regurgitation has markedly improved and now is only mild to moderate in severity. His left-sided pleural effusion also appears to be significantly smaller. PHYSICAL EXAMINATION: Pleasant, elderly male, who is quite conversant, sitting in his chair in no distress. BP 129/68. O2 saturation 97% on 1 L nasal cannula. His fluid balance remains unclear as it appears that he has had a positive fluid balance over the last three days, despite being down 1.2 kg yesterday but his weights have been very variable and likely inaccurate. Lungs: Clear bilaterally without any appreciable rales or wheeze with improved breath sounds compared to previous. CV: Regular rate and rhythm with a 2/6 harsh systolic ejection murmur with a crisp mechanical S2. JVP remains difficult to assess but does not appear to be distended. Abdomen soft, nondistended, nontender, without any obvious hepatosplenomegaly. Extremities: Warm without edema. LABORATORY: White count is improved at 8.8, down from 11.5, with an hematocrit that is stable at 35%. Potassium this morning is 4.2, with a BUN of 17, and a creatinine of 0.8, essentially unchanged from yesterday. Magnesium is 1.9. IMPRESSION: 1. Respiratory failure, likely multifactorial. Given the rather dramatic improvement in his pulmonary artery pressures and right ventricular dysfunction with minimal diuresis, I suspect that a large component of this was due to a concurrent pulmonary issue including his pneumonia. While he continues to have a moderately elevated pulmonary artery pressure, this appears to have improved. Likewise, his filling pressures appear to be better, although still slightly elevated and I would continue with moderate diuresis as his kidney function and electrolytes and blood pressure allow. I would also like to see further afterload reduction given his degree of mitral regurgitation and I will advance his KRISTEN inhibitor by changing him back to enalapril, which was his home medication, and advancing this to 20 mg b.i.d. Once he is felt to be euvolemic and maximally afterload reduced, then I suspect that he can be discharged from a cardiac standpoint with followup with Dr. Whipple. I do not believe that he requires cardiac catheterization at this point given his clinical improvement with likely underlying resolving pneumonia. I think he would be a relatively poor surgical candidate for his mitral valve and thus again medical therapy should be initially pursued. 2. Coronary artery disease, status post coronary artery bypass graft. He remains asymptomatic. 3. Status post mechanical aortic valve replacement. I think his warfarin can be restarted at this point, as I am not anticipating cardiac catheterization during this hospitalization. He should be bridged with Lovenox until he reaches therapeutic levels of his INR. 4. Mitral regurgitation. As above. Appears to be improved with diuresis and afterload reduction and will continue with this. 5. Sleep apnea. Continue to encourage CPAP treatment. PLAN: 1. Continue with his current diuretic regimen including his potassium, although the latter may need to be reduced with advancement of his enalapril in an effort to avoid hyperkalemia. I will change his lisinopril 10 mg b.i.d. to enalapril 20 mg b.i.d., and he will require again close observation of electrolytes and renal function. I would continue with strengthening exercises and once he reaches maximal medical therapy, I suspect that he can be discharged home from a cardiac standpoint with followup with Dr. Whipple in several weeks. 2. Restart warfarin with Lovenox bridging until he is therapeutic. 3. Diabetes management per the hospitalist. I spent 35 minutes reviewing the patient's medical record, interviewing and examining the patient, answering his questions, and discussing with his care team. Dr. Manda Brar will be taking over the service tomorrow. If you have any further questions, please contact her for further cardiology evaluation, but at this point, I will not have her see the patient back unless requested.
--- NOTE | 2016-10-31 15:22 | PCM.PNNEPH ---
Subjective Date of Service Oct 31, 2016 Subjective No IV access, on lovenox subQ. He stated that he is feeling better. Exam Vital Signs Vital Sign - Last Date Time Temp Pulse Resp B/P Pulse Ox O2 Delivery O2 Flow Rate FiO2 10/31/16 13:04 Nasal Cannula 2.00 10/31/16 12:07 36.8 82 129/68 97 10/31/16 09:41 18 10/30/16 14:29 25 Intake and Output 10/30/16 10/30/16 10/31/16 Cumulative From/Thru 15:00 23:00 07:00 10/26/16 12:58 - 10/31/16 05:20 Intake Total 636 ml 440 ml 7697 ml Output Total 350 ml 450 ml 3000 ml Balance 286 ml -10 ml 4697 ml Intake Oral 636 ml 440 ml 5013 ml IV Total 2684 ml Output Urine Total 350 ml 450 ml 3000 ml # Voids 3 2 18 # Bowel Movements 1 3 Exam General appearance: Chronically ill-looking, in no acute distress. Follows commands. Cooperative. HEENT: PERRLA. No active head trauma. No JVD. No lymphadenopathy. No thyroid enlargement. No icteric sclerae. No pallor. Heart: Regular rhythm. Normal S1 and S2. Systolic murmur noted, Valve click. Lungs: Decreased breath sounds at bases. Occasional rhonchi noted. Abdomen: Soft, active bowel sounds. Nontender. Nondistended. No hepatosplenomegaly. Extremities: No edema on the lower extremity. Lab and Diagnostics Result Diagram: 10/31/16 0650 10/31/16 0650 X-Rays, CTs and MRIs IMPRESSION: 1. Left renal calculus, which has increased in size compared to prior exam. No obstruction. 2. Unchanged appearance of masslike focus significant along the anterior aspect of the right renal pole as described above. Given stability over multiple prior exams finding could be related to a prominent renal lobulation versus extremely slow growing neoplasm. Further evaluation with ultrasound may be helpful for additional evaluation. 3. Mild to moderate bilateral pleural effusions with areas of superimposed consolidation. The latter is suspected to be related to atelectasis. However, developing pneumonia cannot be excluded. Dictated by: Jodie Merritt M.D. on 10/27/2016 at 16:32 X-RAY CHEST ONE VIEW, PORTABLE IMPRESSION: Widespread bilateral groundglass opacities suggesting pulmonary edema, with superimposed bibasilar consolidative opacities especially in the retrocardiac region although these appear grossly unchanged. Please correlate clinically.Cardiomegaly as before Approved by: Froilan Catherine M.D. on 10/26/2016 at 12:38 Cardiac Echo Impressions Cardiac Echo Impression Echocardiogram on 10/18/2016 interpretation summary The left ventricle is normal in size. The ejection fraction is estimated to be 40-45%. Compared to the prior exam, the left ventricular function is reduced. There appears to be severe hypokinesis of base to mid inferior wall extending into the base to mid postero lateral wall. Right ventricle is moderately dilated. Right ventricular systolic function is mild to moderately reduced. There is moderate to severe mitral annular calcification. No significant mitral valve stenosis. There is moderate to severe mitral regurgitation. The mitral valve mean gradient is 5 mmHg. Compared to the prior echo study, there has been an increase in the severity of mitral regurgitation. There is a mechanical aortic valve. The prosthetic aortic valve is well seated. The peak aortic velocity is 2.48 m/s. The peak aortic velocity on the previous exam was 3.53 m/s. The aortic valve mean gradient is 13.5 mmHg. There is severe tricuspid regurgitation. Compared to the prior echo exam, there has been an increase in TR severity. The right ventricular systolic pressure is estimated at 58 mmHg assuming a right atrial pressure of 15 mmHg. Compared to the prior echo exam, there has been an increase in the severity of pulmonary hypertension. There is a moderately large left-sided pleural effusion. Additional Diagnostics DateTimeAnalyzed 12:50:00 -_ pH ____7.417 - 7.320 7.420 pCO2 ___58.9__ -mmHg 41.0 51.0 pO2 ___29.5__ -mmHg 24.0 40.0 HCO3- ___37.2__ -mmol/L Plan Impression ASSESSMENT: 1. Hematuria with underlying disease of nephrolithiasis, BPH and coagulopathy. - Urine protein creatinine ratio is 0.6 g/g. - Dysmorphic RBCs identified under microscopy. - CXR: widespread bilateral pulmonary interstitial and air space opacities. - Glomerulonephritis workup has been sent to rule out pulmonary-renal syndrome, results pending. - Complement 3/4 WNL. C4 slightly high. 2. HFrEF, repeat echo EF 40-45%. - cardiology on board, on lasix and enalapril per cardiology. 3. Metabolic alkalosis and respiratory acidosis. 4. NAYELI on CPAP. 5. 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 6. Coronary artery disease status post CABG x4 plus drug-eluting stent placement. 7. Mechanical aortic valve replacement. 8. H/o subdural hematoma status post surgical drainage and craniotomy. 9. Hypertension. Jenny Martinez MD Oct 31, 2016 15:22
--- NOTE | 2016-10-31 19:17 | NUR ---
Bipap to Cpap Dr Carrington asked to have RT change Bipap setting to Cpap at night. Simeon Kirk RT made aware and Suzy RN made aware.
--- NOTE | 2016-10-31 21:03 | PCM.PNMED ---
Subjective Date of Service Oct 31, 2016 Subjective Overnight: No acute events Today: The patient questioned what was a likelihood of him being home within the next week. The patient was reminded that he will require some fdc facility time for PT to strengthen and make it safe to return home. The patient was reminded to maintain strict tolerance to weight control as that will help guide his diuretic usage in the future as well as to maintain CPAP at night for improved oxygenation given sleep apnea. The patient appreciated the discussion and all questions were answered. Exam Vital Signs Vital Sign - Last Date Time Temp Pulse Resp B/P Pulse Ox O2 Delivery O2 Flow Rate FiO2 10/31/16 06:03 79 10/31/16 04:59 37.0 22 116/55 96 BiPAP 10/30/16 20:18 1.50 10/30/16 14:29 25 Intake and Output 10/30/16 10/30/16 10/31/16 Cumulative From/Thru 15:00 23:00 07:00 10/26/16 12:58 - 10/31/16 05:20 Intake Total 636 ml 440 ml 7697 ml Output Total 350 ml 450 ml 3000 ml Balance 286 ml -10 ml 4697 ml Intake Oral 636 ml 440 ml 5013 ml IV Total 2684 ml Output Urine Total 350 ml 450 ml 3000 ml # Voids 3 2 18 # Bowel Movements 1 3 Exam General: obese senior male appearing approximately stated age in no acute distress alert and oriented Eyes: Pupils equal round and reactive to light, extraocular motion intact, anicteric sclera, noninjected conjunctiva HENT: Normocephalic atraumatic, moist mucous membranes without central cyanosis , oropharynx clear without purulent exudate or cobblestoning mucosa Neck: Supple, trachea midline, without thyromegaly or JVD Cardiovascular: Regular rate and regular rhythm, S1-S2 present, systolic murmur noted in left lower sternal boarder with systolic click noted almost globally most noticeable at right upper sternal boarder, no rubs or gallops noted Lungs: Improved but remained mild course breath sounds noted bilaterally worse in the bases of the axilla and posterior lung omer with more clear sounds in the anterior omer bilaterally, no wheezing Abdomen: Soft, nontender, nondistended, tympanic to percussion, normal active bowel sounds, without organomegaly Extremities: No cyanosis clubbing or edema noted, pulses intact bilaterally at dorsalis pedis and radial : No Manuel catheter in place Skin: Warm and dry Neuro: Nonfocal neurologic exam, able to move all extremities Psych: Normal mood and affect Lab and Diagnostics Result Diagram: 10/31/16 0650 10/31/16 0650 X-Rays, CTs and MRIs IMPRESSION: 1. Left renal calculus, which has increased in size compared to prior exam. No obstruction. 2. Unchanged appearance of masslike focus significant along the anterior aspect of the right renal pole as described above. Given stability over multiple prior exams finding could be related to a prominent renal lobulation versus extremely slow growing neoplasm. Further evaluation with ultrasound may be helpful for additional evaluation. 3. Mild to moderate bilateral pleural effusions with areas of superimposed consolidation. The latter is suspected to be related to atelectasis. However, developing pneumonia cannot be excluded. Dictated by: Jodie Merritt M.D. on 10/27/2016 at 16:32 X-RAY CHEST ONE VIEW, PORTABLE IMPRESSION: Widespread bilateral groundglass opacities suggesting pulmonary edema, with superimposed bibasilar consolidative opacities especially in the retrocardiac region although these appear grossly unchanged. Please correlate clinically.Cardiomegaly as before Approved by: Froilan Catherine M.D. on 10/26/2016 at 12:38 Cardiac Echo Impressions Echocardiogram Report Interpretation Summary Left ventricular systolic function is mild to moderately reduced with the ejection fraction visually estimated to be 45-50% with significant hypokinesis of the proximal inferioposterior segment that is unchanged from the previous study but global LV function has improved. There are no other obvious focal wall motion abnormalities. Compared to the prior exam, left ventricular function has slightly improved. There is mild concentric left ventricular hypertrophy. The right ventricle is normal in size and function and has significally improved in both compared to the previous study. The right ventricular systolic pressure is estimated at least 53 mmHg assuming a right atrial pressure of 8 mm Hg, and both are likely lower compared to the previous study. The mitral valve leaflets are moderately calcified with probable mild mitral stenosis and moderate mitral regurgitation although the latter appears improved compared to the previous study. There is mild to moderate tricuspid regurgitation that is markedly improved compared to the previous study. There is a moderate left-sided pleural effusion that appears significantly smaller compared to the previous study. Reading Physician:01:23 PM Additional Diagnostics DateTimeAnalyzed 12:50:00 -_ pH ____7.417 - 7.320 7.420 pCO2 ___58.9__ -mmHg 41.0 51.0 pO2 ___29.5__ -mmHg 24.0 40.0 HCO3- ___37.2__ -mmol/L Assessment & Plan Tito Albright is a 76-year-old gentleman with a complicated medical history of subdural hematoma status post surgical drainage and craniotomy following ground- level fall, coronary artery disease status post CABG x4 plus drug-eluting stent placement, mechanical aortic valve replacement, and diabetes mellitus, and presented to the emergency department with a two day history of progressive fatigue, weakness, and cough. The patient was discharged on 10/22 to [facility] and how reportedly been hypoxic and hypotensive. Acute on chronic Systolic Congestive Heart Failure with elevated troponins of unknown significance - Mildly elevated troponins and patient denies chest pain. Troponins continued to trend up, 0.099, 0.108, 0.121 - EF of 40-45% on previous ECHO, repeat echo shows EF of approximately 45-50 % with continuation of hypokinesis and posterior inferior segments - Patient appeared dry with dry mucus membranes and no noted JVD, however with CXR showing more pulmonary edema than previously seen. Volume status has been difficult to assess -Strict Is and Os and daily weights -Cardiology, Dr. Guzmán has been consulted and we appreciate his input -Patient has been restarted on Lasix 40 mg po bid and lisinopril 10 mg po bid changed to enalapril 20 twice a day -Given improvement in echo, patient will not receive cardiac catheterization and will be recommended for optimal medical management with follow-up with cardiology Dr. Nguyen as an outpatient in several weeks -Patient will need to be given a baseline ideal weight and advised to check weight immediately upon arriving at new residence due to individual scale accuracy inconsistency, so as to better dose diuretics based around that body weight, while maintaining consistent oral intake Acute Hypercapnic hypoxic respiratory failure with associated Encephalopathy , present on admission, improving - Patient is clinically more somnolent that previously seen at time of admission , he attributes this to poor sleep last night all of [place] - no prior ABG available - venous blood gas shows elevated CO2, patient has been confused at times and somnolent but easily arousable with decreased level of mentation, Repeat ABG on 10/27/16 shows pH 7.473, pCO2 49.6, pO2 57.7 - ordered non-contrast CT of chest which showed Mild to moderate bilateral pleural effusions with areas of superimposed consolidation - RT to place BiPAP but patient does not tolerate it. Patient will try to wear bipap as much as he can. Mentation has greatly improved with use of Bi-pap. - Encouraged patient to use Bi-Pap, patient and are advised to bring in home CPAP machine to have mask tested by RT Pulmonary Hypertension and severe tricuspid valve regurgitation -Noted on ECHO from prior hospitalization -Cardiology has been consulted -recommended out patient follow-up Chronic Hematuria, present on admission - UA on readmission noted continual significant blood, Patient has history of BPH and renal stones, as well as elevated INR due to warfarin with low total vitamin K - Patient reports worked up by outpatient urology, with recommendations to see nephrology - Monitor for any worsening, as patient's INR was significantly elevated during admission - Nephrology, Dr. Blum, consulted and we appreciate her input, on direct light microscopy noted significant atypical red blood cells consistent with possible glomerulonephritis - She has started workup for glomerulonephritis to rule out pulmonary-renal syndrome. - per recommendations of nephro, ordered a KUB, which showed renal stones Elevated INR, acute, present on admission, monitoring - On admit: INR 5.28 - Likely secondary to recent chronic antibiotic use with decreased gut christiano Vit K - Patient reports compliance with Coumadin dosing and monthly monitoring in clinic -Gave Vitamin K to reverse INR since patient was possibly going to undergo cardiac cath. With INR improved -No catheterization planned, Will resume warfarin with Lovenox bridge Diabetes mellitus insulin dependant - Medium dose correctional - transition to home medications once stable - A1c 08/19/2016: 7.1 Mechanical aortic valve on chronic anticoagulation therapy - Goal INR 2.5-3.5 - Monitor -Give Vitamin K as INR is supratherapeutic -No catheterization planned, Will resume warfarin with Lovenox bridge History of coronary artery disease status post CABG 4 and drug-eluting stent placement - Resume home medications including atorvastatin and aspirin - Echo 2014: EF 55-60, basal inferior wall hypokinesis, moderate mitral annular calcification, moderate mitral regurgitation, mechanical aortic valve, moderate to severe tricuspid regurgitation History of insomnia and anxiety, chronic - Resume home medication trazodone 50 mg, 1-2 tabs as needed for sleep Chronic Benign Prostatic Hypertrophy - continue home finasteride and tamsulosin Hypotension secondary to presumed dehydration, present on admission, resolved - Patient presented to the ED with blood pressure of 80/44 with a lactic acidosis of 2.7 - The patient denies symptoms of ongoing infection including fever, chills, worsening cough, SOB, abdominal pain, or increased urination frequency or urgency - The patient admits to poor oral intake while continuing Lasix - On admit, Chloride of 96 with Alkalosis Bicarb of 32 which is well compensated on venous blood gas consistent with contraction alkalosis - Blood pressure improved from systolics in the 80 to systolics in the 130 with 1L NS - CXR shows consistent pulmonary edema consistent with the patient's prior XRay images from his previous hospitalization - Fractional excretion of urea ordered. Urine urea-842 - Continue conservative fluid management. Patient has been restarted on Lasix 40 mg po bid Acute Leukocytosis with Elevated lactic acid, resolved - ED initially concerned for sepsis however patient has no signs of active infection with negative procalcitonin and previously clinically treated for pneumonia - On admit: Lactic acid 2.7 repeated to 2.8 - Likely secondary to hypotension and underlying heart failure and pulmonary hypertension with elevated CO2 - Lactic acid normalized - blood cultures and urine cultures ordered - patient started on antibiotics Vancomycin, Zosyn and Levoquin for healthcare acquired pneumonia given presentation of course breath sounds with hypotension however these will not be continued Code: FULL CODE DVT prophylaxis: Therapeutic Lovenox GI: Famotidine BID Disposition: Patient will likely be discharged in the next 2-3 days while optimizing medical management of systolic heart failure and obtaining an ideal body weight for diuretic management. Patient will likely need to be discharged back to a fdc facility for continual physical therapy. GI Prophylaxis: H2 kings VTE Prophylaxis: Other (therapeutic Lovenox) VTE Mechanical Devices: Intermittant Pneumatic CD Resuscitation Status: CPR: Attempt Resuscitation Rishi Mirza DO Oct 31, 2016 07:50
--- NOTE | 2016-10-31 21:38 | PCM.CONPHA ---
Subjective Requesting Provider: Rishi Mirza DO Shortness of breath, dyspnea, confusion . Reason for Pharmacy Consult: Anticoagulation Management Assessment/Plan Assessment/Plan Warfarin dosing for patient with a mechanical aortic valve with a goal INR of 2.5-3.5: The patient was admitted on 10/28/16 with a diagnosis of sepsis, pneumonia and pulmonary edema, and incidentally had a supratherapeutic INR of 6.62 He was given Vitamin K 2.5mg IV x 2 on 10/28/16 and placed on enoxaparin 100mg subcutaneously bid. Today the INR is 1.37 and warfarin is being resumed. There is no mention of a home warfarin dose in the medication reconciliation or external med rec., and the patient is not a reliable historian. The patient will be given warfarin 5mg tonight per the Flexible Warfarin Initiation Protocol. The pharmacist tomorrow will investigate the home dose. INRs have been ordered x 7; pharmacy will evaluate and dose warfarin daily. Ioana Rain [facility] Oct 31, 2016 21:37
[2016-11-01 02:48] LABS: BASOPHILS % (AUTO) 0.3 % (0-3); EOSINOPHILS % (AUTO) 1.9 % (0-5); MONOCYTES % (AUTO) 8.8 % (4-12); Mean Corpuscular Hemoglobin 29.8 pg (27.0-35.0); NEUTROPHILS % (AUTO) 75.5 % (40-74); Platelet Count 195 bil/L (150-400)
[2016-11-01 03:03] LABS: INR 1.08 ratio
[2016-11-01 03:10] LABS: Phosphorus 2.4 mg/dL (2.5-4.9)
[2016-11-01 03:55] VITALS: BP 137/71; PULSE 93; RESP 20; O2SAT 96
--- NOTE | 2016-11-01 07:38 | NUR ---
CPAP Compliance/Take CPAP masks in room home/Skin Pt continues to be non-compliant with CPAP. Pt kept the CPAP on through the night from 2130 until 0000 and then got back on it from 0545 until 0715. Pt did say that the CPAP feels more comfortable now than it did the night before. Pt would like to bring home the 2 CPAP masks that are currently in the pt's room for him to use with home CPAP machine. The should be bringing the pt's CPAP from home to ensure that the mask and machine are compatible prior to pt's DC. Pt continues to pick at skin and does not realize that he has picked his skin and made a bleeding wound until it is brought to his attention by another. Bacitracin has been applied to all of these wounds and there are bandaids on two of the most recent wounds. 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
[2016-11-01 09:04] VITALS: BP 123/72; PULSE 94; RESP 20; O2SAT 96
[2016-11-01] MEDS: Insulin LISPRO 300 Unit/3 mL Inj SUBQ SCH ×2 (09:15→12:46)
[2016-11-01] MEDS: Potassium Chloride 20 mEq SR Tablet PO SCH (09:16)
[2016-11-01] MEDS: Insulin Human NPH 100 Unit/mL Syringe SUBQ SCH (09:19)
[2016-11-01] MEDS: Nystatin 100,000 Unit/Gm 15 Gm Powder TOPICAL SCH (09:19)
[2016-11-01 10:29] VITALS: PULSE 80
--- NOTE | 2016-11-01 10:40 | PCM.PNNEPH ---
Subjective Date of Service Nov 01, 2016 Subjective The patient was seen, interviewed, examined, and the trunk as been thoroughly reviewed. I appreciate Dr. Blum's input and I have also reviewed her consultation. Patient presented with significant hematuria with preserved creatinine. When Dr. Blum reviewed the urine apparently there were multiple dysmorphic red cells however no red cell casts were noted. He denied any antecedent diarrhea, severe arthralgias, palpable purpura/skin rash, severe or severe abdominal pain. There is no history of prior hepatitis, recent skin infection. His workup to date has been unremarkable with normal C3 and C4, negative hepatitis and EMILIO serology and strep screen was also negative. His ANCAs are pending at time of my evaluation today This morning he feels well and states that his appetite is good and denies any nausea, vomiting, diarrhea, chest pain, or shortness of breath. Exam Vital Signs Vital Sign - Last Date Time Temp Pulse Resp B/P Pulse Ox O2 Delivery O2 Flow Rate FiO2 11/01/16 10:29 80 11/01/16 09:04 36.6 20 123/72 96 Nasal Cannula 1.00 10/30/16 14:29 25 Intake and Output 10/31/16 10/31/16 11/01/16 Cumulative From/Thru 15:00 23:00 07:00 10/26/16 12:58 - 11/01/16 06:06 Intake Total 836 ml 300 ml 8833 ml Output Total 875 ml 400 ml 4275 ml Balance -39 ml -100 ml 4558 ml Intake Oral 836 ml 300 ml 6149 ml IV Total 2684 ml Output Urine Total 875 ml 400 ml 4275 ml # Voids 2 5 25 # Bowel Movements 2 2 7 Exam HEENT examination is remarkable for some mild bilateral conjunctival injection and pelvis. Mucous membranes are moist. Neck is supple without adenopathy, thyromegaly, or jugular venous distention. Lungs showed a few scattered rhonchi and diminished breath sounds were noted bilaterally. Heart was regular and rhythmical with a soft systolic murmur. Abdomen is soft without any tenderness rebound guarding masses or hepatosplenomegaly. Extremities did not show any evidence of any clubbing, cyanosis, edema, or half and half nails. Skin turgor was good and there is no evidence of any rashes. Lab and Diagnostics Result Diagram: 11/01/16 0151 11/01/16 0151 X-Rays, CTs and MRIs IMPRESSION: 1. Left renal calculus, which has increased in size compared to prior exam. No obstruction. 2. Unchanged appearance of masslike focus significant along the anterior aspect of the right renal pole as described above. Given stability over multiple prior exams finding could be related to a prominent renal lobulation versus extremely slow growing neoplasm. Further evaluation with ultrasound may be helpful for additional evaluation. 3. Mild to moderate bilateral pleural effusions with areas of superimposed consolidation. The latter is suspected to be related to atelectasis. However, developing pneumonia cannot be excluded. Dictated by: Jodie Merritt M.D. on 10/27/2016 at 16:32 X-RAY CHEST ONE VIEW, PORTABLE IMPRESSION: Widespread bilateral groundglass opacities suggesting pulmonary edema, with superimposed bibasilar consolidative opacities especially in the retrocardiac region although these appear grossly unchanged. Please correlate clinically.Cardiomegaly as before Approved by: Froilan Catherine M.D. on 10/26/2016 at 12:38 Cardiac Echo Impressions Echocardiogram Report Interpretation Summary Left ventricular systolic function is mild to moderately reduced with the ejection fraction visually estimated to be 45-50% with significant hypokinesis of the proximal inferioposterior segment that is unchanged from the previous study but global LV function has improved. There are no other obvious focal wall motion abnormalities. Compared to the prior exam, left ventricular function has slightly improved. There is mild concentric left ventricular hypertrophy. The right ventricle is normal in size and function and has significally improved in both compared to the previous study. The right ventricular systolic pressure is estimated at least 53 mmHg assuming a right atrial pressure of 8 mm Hg, and both are likely lower compared to the previous study. The mitral valve leaflets are moderately calcified with probable mild mitral stenosis and moderate mitral regurgitation although the latter appears improved compared to the previous study. There is mild to moderate tricuspid regurgitation that is markedly improved compared to the previous study. There is a moderate left-sided pleural effusion that appears significantly smaller compared to the previous study. Reading Physician:01:23 PM Additional Diagnostics DateTimeAnalyzed 12:50:00 -_ pH ____7.417 - 7.320 7.420 pCO2 ___58.9__ -mmHg 41.0 51.0 pO2 ___29.5__ -mmHg 24.0 40.0 HCO3- ___37.2__ -mmol/L Plan Impression Impression #1 hematuria with dysmorphic red cells however there is no other evidence of acute glomerulonephritis. In light of the normal C3 and C4 levels and his age I would be concerned about Henoch-Schnlein purpura however he does not have any other manifestations of this. Also in light of his recent pneumonia with pulmonary renal syndromes would be also in the differential but again I have a posterior evidence to point to this. Recommendation #1 at this point he can be discharged per the primary team. Bowen Islas DO Nov 01, 2016 10:40
--- NOTE | 2016-11-01 11:52 | NUR ---
ASSISTED TRANSFER : Called and left message for Gayathri Estrada at [facility] and let her know patient is ready for transfer to [facility] today. Updated LEASING CONSULTANT Addendum: 11/01/16 at 1355 by PATRICK GARCIA CM Gayathri Ventura approved transfer to senior living today.
--- NOTE | 2016-11-01 11:53 | NUR ---
Social Work: Readiness for Discharge/Multidisciplinary Rounds D: Pt discussed in multidisciplinary rounds; the patient may be medically stable for discharge today. Patient has been accepted at [facility] with Dr. Olson to follow. Attending provider has requested TYPE COPY EXAMINER re-discuss patient's SNF Preferences. TYPE COPY EXAMINER met with the patient and his at bedside. The patient confirms that his preference is for [facility] and they understand that there are other [employer] contracts available if he chooses. The patient declined to explore other SNF options. Patient states that he heard from his provider that he might discharge today; he agrees with this plan and has no concerns. TYPE COPY EXAMINER has requested biology specialist start authorization with [employer]. JOSEPHINE spoke with Roselyn Segura at [facility]. She states that they have a bed available for the patient today if authorization is received. TYPE COPY EXAMINER updated resident provider of this information and will page her once determination is made. A: Patient who will require skilled rehab at time of discharge for continued strengthening and functional mobility improvement. P: Anticipate pt to discharge back to [facility] with Dr. Olson to follow pending [employer] Authorization. TYPE COPY EXAMINER to update provider and patient once auth is received. JOSEPHINE Hernandez
[2016-11-01 12:00] VITALS: BP 135/83; PULSE 91; RESP 20; O2SAT 95
[2016-11-01 13:08] LABS: Complement Total(CH50) > 60 U/mL (42-60)
--- NOTE | 2016-11-01 16:04 | PCM.DIMED ---
Camilla Chambers DO 11/01/16 1604: Discharge Instructions Date of Service Nov 01, 2016 Dates of Hospitalization Oct 26, 2016 at 15:33 Discharge Diagnosis Discharge Diagnosis Acute on chronic Systolic Congestive Heart Failure with elevated troponins of unknown significance Acute Hypercapnic hypoxic respiratory failure with associated Encephalopathy, resolved Pulmonary Hypertension and severe tricuspid valve regurgitation Chronic Hematuria Elevated INR, resolved Diabetes mellitus insulin dependant Mechanical aortic valve on chronic anticoagulation therapy History of coronary artery disease status post CABG 4 and drug-eluting stent placement History of insomnia and anxiety Chronic Benign Prostatic Hypertrophy Hypotension secondary to presumed dehydration, present on admission, resolved Acute Leukocytosis with Elevated lactic acid, resolved Candidauria Diet Discharge Diet: Heart Healthy, Diabetic Activity Discharge Activity: Other (Nursing Home Facility with Physical Therapy and Occupational Therapy ) Call your provider Call your provider for: Fever or Chills, Shortness of breath, Bleeding, Chest pain, Vomitting, Excessive diarrhea, Weakness (unilateral) Patient Instructions Patient Instructions You presented to the Emergency department because you were progressively feeling fatigue and weak. We found that your blood pressure was low and your oxygen levels were also low. In addition, you were confused, not oriented and very somnolent because your CO2 levels were high. It appeared that you were dehydrated and so we fixed your low blood pressure by giving you fluids. In addition, we started you on BiPap because of your low oxygen and high CO2 levels and you responded well to that. I encourage you to use your CPAP machine regularly once you are discharged. In addition, we also consulted cardiology, who reviewed your ECHOcardiogram ( Ultrasound of the heart) and suggested that we resume your Lasix because it also appeared that you were having acute congestive heart failure. Cardiology did a repeat Ultrasound which showed some improvement in your heart function and they said that there was no need to do a heart catheterization at this time. Instead, we will proceed with medical management and to follow-up with cardiology Dr. Nguyen as an outpatient in several weeks. At one point, we also stopped your warfarin and gave you Vitamin K to reverse the INR because we thought you might be undergoing a heart catheterization. However, given the improvement in your ECHO, this was not warranted. We are starting you back on Coumadin. However, you will need to bridge it with Lovenox. You will need to get Lovenox injections for 3 more days along with Warfarin. The instructions are for the nurse at [facility] to check your INR daily and adjust your warfarin as needed. Lastly, you have really shown improvement since you were admitted. You will be going to [facility] for rehabilitation with Physical Therapy and Occupational Therapy. Please continue to participate in this so that you can become stronger and return to your baseline. Follow-up Provider: Devante Whipple MD Follow-up with PCP in: 2 weeks Provider: Malgorzata Varner MD Follow-up in: 2 weeks Additional Information Patient will be discharged to [facility] for Physical Therapy and Occupational Therapy Marycruz Ivy DO 11/01/16 1719: Discharge Instructions Attending's Statement The patient was seen and examined together with Dr. Chambers on 11/01/2016 and I agree with the history, exam and plan as outlined in the note above. Camilla Chambers DO Nov 01, 2016 16:04 Marycruz Ivy DO Nov 01, 2016 17:19
[2016-11-01] MEDS ORDERED: FURO40TA4 PO (16:09)
[2016-11-01] MEDS ORDERED: WARF2.5T PO (16:09)
[2016-11-01] MEDS ORDERED: POTA20TA16 PO (16:09)
[2016-11-01] MEDS ORDERED: OXYC-530 PO (16:09)
[2016-11-01] MEDS ORDERED: ENAL20TA PO (16:09)
[2016-11-01] MEDS ORDERED: LOV100 SUBQ (16:09)
--- NOTE | 2016-11-01 16:25 | NUR ---
Social Work: Discharge D: Provider states that the patient is medically stable for discharge. Manager Rehab states that she has received authroization from patient's insurance for SNF discharge. EDUCATIONAL INSTITUTION CURATOR spoke with Roselyn Segura who states that they can accept the patient today but will not be able to pick him up until 1699. EDUCATIONAL INSTITUTION CURATOR has faxed discharge ppW and medications to [facility] with copies on chart. Patient and Bedside RN are aware of discharge plan and time. A: pt who will require ongoing rehab for further progression towards functional mobility P: Pt to discharge to [facility] today with Dr. Olson to follow. Terrell arranged for 1699. JOSEPHINE Hernandez
[2016-11-01 16:41] VITALS: BP 135/65; PULSE 58; RESP 20; O2SAT 94
--- NOTE | 2016-11-01 18:02 | NUR ---
Discharge Pt discharged to [facility] [place]. Report given to Vipin MARMOLEJO. Pt transported by [facility] staff. Pt's notified. All belongings gathered and transported with pt.
--- NOTE | 2016-11-01 19:00 | PCM.DC.MED ---
Discharge Summary Date of Service Nov 01, 2016 Dates of Hospitalization Date of Hospital Admission Oct 26, 2016 at 15:33 Date of Discharge: Nov 01, 2016 Providers: Admitting Physician: Gianni Carrington MD Primary Care Physician: Malgorzata Varner MD Attending Physician: Marycruz Ivy DO Diagnosis at Time of Discharge Diagnosis at Time of Discharge Acute on chronic Systolic Congestive Heart Failure with elevated troponins of unknown significance Acute Hypercapnic hypoxic respiratory failure with associated Encephalopathy, resolved Pulmonary Hypertension and severe tricuspid valve regurgitation Chronic Hematuria Elevated INR, resolved Diabetes mellitus insulin dependant Mechanical aortic valve on chronic anticoagulation therapy History of coronary artery disease status post CABG 4 and drug-eluting stent placement History of insomnia and anxiety Chronic Benign Prostatic Hypertrophy Hypotension secondary to presumed dehydration, present on admission, resolved Acute Leukocytosis with Elevated lactic acid, resolved Candidauria Consultations Cardiology, Dr. Thorpe and Dr. Guzmán Nephrology, Dr. Blum and Dr. Islas Procedures XRay, CTs & MRIs IMPRESSION: 1. Left renal calculus, which has increased in size compared to prior exam. No obstruction. 2. Unchanged appearance of masslike focus significant along the anterior aspect of the right renal pole as described above. Given stability over multiple prior exams finding could be related to a prominent renal lobulation versus extremely slow growing neoplasm. Further evaluation with ultrasound may be helpful for additional evaluation. 3. Mild to moderate bilateral pleural effusions with areas of superimposed consolidation. The latter is suspected to be related to atelectasis. However, developing pneumonia cannot be excluded. Dictated by: Jodie Merritt M.D. on 10/27/2016 at 16:32 X-RAY CHEST ONE VIEW, PORTABLE IMPRESSION: Widespread bilateral groundglass opacities suggesting pulmonary edema, with superimposed bibasilar consolidative opacities especially in the retrocardiac region although these appear grossly unchanged. Please correlate clinically.Cardiomegaly as before Approved by: Froilan Catherine M.D. on 10/26/2016 at 12:38 Cardiac Echo Impression Echocardiogram Report Interpretation Summary Left ventricular systolic function is mild to moderately reduced with the ejection fraction visually estimated to be 45-50% with significant hypokinesis of the proximal inferioposterior segment that is unchanged from the previous study but global LV function has improved. There are no other obvious focal wall motion abnormalities. Compared to the prior exam, left ventricular function has slightly improved. There is mild concentric left ventricular hypertrophy. The right ventricle is normal in size and function and has significally improved in both compared to the previous study. The right ventricular systolic pressure is estimated at least 53 mmHg assuming a right atrial pressure of 8 mm Hg, and both are likely lower compared to the previous study. The mitral valve leaflets are moderately calcified with probable mild mitral stenosis and moderate mitral regurgitation although the latter appears improved compared to the previous study. There is mild to moderate tricuspid regurgitation that is markedly improved compared to the previous study. There is a moderate left-sided pleural effusion that appears significantly smaller compared to the previous study. Reading Physician:01:23 PM Other Diagnostics DateTimeAnalyzed 12:50:00 -_ pH ____7.417 - 7.320 7.420 pCO2 ___58.9__ -mmHg 41.0 51.0 pO2 ___29.5__ -mmHg 24.0 40.0 HCO3- ___37.2__ -mmol/L Brief History Tito Albright is a 76-year-old gentleman with a complicated medical history of subdural hematoma status post surgical drainage and craniotomy following ground- level fall, coronary artery disease status post CABG x4 plus drug-eluting stent placement, mechanical aortic valve replacement, and diabetes mellitus, and presented to the emergency department with a two day history of progressive fatigue, weakness, and cough. The patient was discharged on 10/22 to [facility] and has reportedly been hypoxic most likely secondary to noncompliance with home BiPAP and hypotensive. Patient presented to the ED with blood pressure of 80/44 with a lactic acidosis of 2.7. On admit, Chloride of 96 with Alkalosis Bicarb of 32 which is well compensated on venous blood gas consistent with contraction alkalosis. Blood pressure improved from systolics in the 80 to systolics in the 130 with 1L NS. In addition, patient was very somnolent and confused. ABGs revealed acute hypercapnic hypoxic respiratory failure. Patient was placed on BiPap with great improvement in alertness and mentation. In addition, given his systolic congestive heart failure, urinary hypertension and severe tricuspid valve regurgitation, cardiology was consulted. Patient was restarted on Lasix 40 mg by mouth twice a day and enalapril 20 mg by mouth twice a day. A repeat limited echocardiogram showed improvement in cardiac function and cardiac catheterization was deferred. Cardiology recommended optimal medical management and follow-up with cardiology Dr. Nguyen as an outpatient in several weeks. The patient stated that he would be more compliant with his BiPAP and would produce pain fully in physical therapy. The patient does look improved from his previous admission and he is more mobile patient and should continue with his physical therapy regimen at [facility] as this seems to have improved his mobility. The patient needs to be strictly compliant with his BiPAP at nighttime. Hospital Course Tito Albright is a 76-year-old gentleman with a complicated medical history of subdural hematoma status post surgical drainage and craniotomy following ground- level fall, coronary artery disease status post CABG x4 plus drug-eluting stent placement, mechanical aortic valve replacement, and diabetes mellitus, and presented to the emergency department with a two day history of progressive fatigue, weakness, and cough. Patient will be discharged to [facility] in stable condition for rehabilitation with physical therapy and occupational therapy. Acute on chronic Systolic Congestive Heart Failure with elevated troponins of unknown significance - Mildly elevated troponins and patient denies chest pain. Troponins continued to trend up, 0.099, 0.108, 0.121 - EF of 40-45% on previous ECHO, repeat echo shows EF of approximately 45-50 % with continuation of hypokinesis and posterior inferior segments - Patient appeared dry with dry mucus membranes and no noted JVD, however with CXR showing more pulmonary edema than previously seen. Volume status has been difficult to assess -Strict Is and Os and daily weights while at [facility] -Cardiology, Dr. Guzmán has been consulted and we appreciate his input -Patient has been restarted on Lasix 40 mg po bid and lisinopril 10 mg po bid changed to enalapril 20 twice a day. Continue after discharge -Given improvement in echo, patient will not receive cardiac catheterization and will be recommended for optimal medical management with follow-up with cardiology Dr. Nguyen as an outpatient in several weeks -Patient is advised to check weight immediately upon arriving at new residence, so as to better dose diuretics based around that body weight, while maintaining consistent oral intake Acute Hypercapnic hypoxic respiratory failure with associated Encephalopathy , present on admission, improving - Patient is clinically more somnolent that previously seen at time of admission - no prior ABG available - venous blood gas shows elevated CO2, patient has been confused at times and somnolent but easily arousable with decreased level of mentation, Repeat ABG on 10/27/16 shows pH 7.473, pCO2 49.6, pO2 57.7 - ordered non-contrast CT of chest which showed Mild to moderate bilateral pleural effusions with areas of superimposed consolidation - RT to place BiPAP but patient does not tolerate it. Patient will try to wear bipap as much as he can. Mentation has greatly improved with use of Bi-pap. - Encouraged patient to use Bi-Pap while admitted. -Advised patient to continue to use his CPAP Pulmonary Hypertension and severe tricuspid valve regurgitation -Noted on ECHO from prior hospitalization -Cardiology was consulted -recommended out patient follow-up Chronic Hematuria, present on admission - UA on readmission noted continual significant blood, Patient has history of BPH and renal stones, as well as elevated INR due to warfarin with low total vitamin K - Patient reports worked up by outpatient urology, with recommendations to see nephrology - Monitored for any worsening, as patient's INR was significantly elevated during admission - Nephrology, Dr. Blum, consulted and we appreciate her input, on direct light microscopy noted significant atypical red blood cells consistent with possible glomerulonephritis - She has started workup for glomerulonephritis to rule out pulmonary-renal syndrome. No further evidence of glomerulonephritis - per recommendations of nephro, ordered a KUB, which showed renal stones Elevated INR, acute, present on admission, monitoring - On admit: INR 5.28 - Likely secondary to recent chronic antibiotic use with decreased gut christiano Vit K - Patient reports compliance with Coumadin dosing and monthly monitoring in clinic -Gave Vitamin K to reverse INR since patient was possibly going to undergo cardiac cath. With INR improved -No catheterization planned, Will resume warfarin with Lovenox bridge. [facility] at [facility] Diabetes mellitus insulin dependant - Medium dose correctional - transition to home medications once stable - A1c 08/19/2016: 7.1 Mechanical aortic valve on chronic anticoagulation therapy - Goal INR 2.5-3.5 -Gave Vitamin K as INR is supratherapeutic -No catheterization planned, Will resume warfarin with Lovenox bridge History of coronary artery disease status post CABG 4 and drug-eluting stent placement - Resume home medications including atorvastatin and aspirin - Echo 2015: EF 55-60, basal inferior wall hypokinesis, moderate mitral annular calcification, moderate mitral regurgitation, mechanical aortic valve, moderate to severe tricuspid regurgitation History of insomnia and anxiety, chronic - Resume home medication trazodone 50 mg, 1-2 tabs as needed for sleep Chronic Benign Prostatic Hypertrophy - continue home finasteride and tamsulosin Hypotension secondary to presumed dehydration, present on admission, resolved - Patient presented to the ED with blood pressure of 80/44 with a lactic acidosis of 2.7 - The patient denies symptoms of ongoing infection including fever, chills, worsening cough, SOB, abdominal pain, or increased urination frequency or urgency - The patient admits to poor oral intake while continuing Lasix - On admit, Chloride of 96 with Alkalosis Bicarb of 32 which is well compensated on venous blood gas consistent with contraction alkalosis - Blood pressure improved from systolics in the 80 to systolics in the 130 with 1L NS - CXR shows consistent pulmonary edema consistent with the patient's prior XRay images from his previous hospitalization - Fractional excretion of urea ordered. Urine urea-842 - Patient has been restarted on Lasix 40 mg po bid Acute Leukocytosis with Elevated lactic acid, resolved - ED initially concerned for sepsis however patient has no signs of active infection with negative procalcitonin and previously clinically treated for pneumonia - On admit: Lactic acid 2.7 repeated to 2.8 - Likely secondary to hypotension and underlying heart failure and pulmonary hypertension with elevated CO2 - Lactic acid normalized - blood cultures showed no growth - patient started on antibiotics Vancomycin, Zosyn and Levoquin for healthcare acquired pneumonia given presentation of course breath sounds with hypotension however these will not be continued Candiduria, present on admission. -Marivel Albicans grew on urine culture 10,000-25,000 CFU -Patient had recent hammonds catheter exposure -No indication to treat at this time as patient is asymptomatic and CFU <50,000 Code: FULL CODE Exam Vital Signs (Last) Date Time Temp Pulse Resp B/P Pulse Ox O2 Delivery O2 Flow Rate FiO2 9/18/17 16:41 36.5 58 20 135/65 94 Nasal Cannula 2.00 10/30/16 14:29 25 Exam Physical Exam: GEN: Patient was awake, alert, responding appropriately to questions HEENT: Pupils equal round and reactive to light, extraocular eye muscles intact , Neck soft supple, trachea midline, nomocephalic/atraumatic CV: +S1/S2, regular rate and rhythm, significant systolic murmur auscultated secondary to patient's valve replacement Respiratory: CTAB, no wheezes, rales, rhonchi GI: +bowel sounds x4, soft, compressible, nontender to palpation EXT: no clubbing, cyanosis, +2 pitting edema in the lower extremities bilaterally Neuro: Cranial nerves II-XII grossly intact Psych: mood and affect were appropriate Test 10/26/16 12:50 10/26/16 13:52 10/27/16 07:58 10/28/16 10:20 Urine Color Dark yellow (YELLOW) Urine Appearance Cloudy (CLEAR,HAZY) Urine pH 5.5 (5.0-8.0) Urine Specific Marcy 1.020 (1.003-1.035) Urine Protein 100mg/dL (NEG,TRACE) Urine Glucose (UA) Negativemg/dL (NEGATIVE) Urine Ketones Tracemg/dL (NEGATIVE) Urine Occult Blood Large (NEGATIVE) Urine Nitrite Negative (NEGATIVE) Urine Bilirubin Negative (NEGATIVE) Urine Urobilinogen Normalmg/dL (NORMAL) Urine Leukocyte Esterase Small (NEGATIVE) Urine RBC >50/hpf (0-2) Urine WBC 0-5/hpf (0-5) Urine Epithelial Cells Occasional/hpf (NONE-MOD) Urine Crystals None seen (NONE SEEN) Urine Bacteria None/hpf (NONE-FEW) Urine Hyaline Casts None/lpf (NONE) Urine Granular Casts None seen (NONE SEEN) Urine Waxy Casts None seen (NONE SEEN) Urine Red Blood Cell Casts None seen (NONE SEEN) Urine White Blood Cell Casts None seen (NONE SEEN) Urine Mucus Present (None Seen) Urine Trichomonas None seen (NONE SEEN) Urine Yeast None (NONE SEEN) Urinalysis Comment None Urine Culture Reflexed Indicated Urine Urea Nitrogen 842mg/dL (Not Estab.) Pro-B-Type Natriuretic Peptide 9018pg/mL (0-486) Ammonia 32ug/dL (18-53) Troponin T 0.121ug/L (0.0-0.011) Thrombin Time 19.4sec (0.0-23.0) Test 10/28/16 11:30 10/29/16 05:20 10/31/16 06:50 11/01/16 01:51 Urine Random Creatinine 95mg/dL (22-328) Urine Random Total Protein 63mg/dL (0-15) Anti-Nuclear Antibody Screen Negative (Negative) Complement C3 144mg/dL (82-167) Complement C4 52mg/dL (14-44) Total Complement (CH50) > 60U/mL (42-60) Hepatitis B Surface Antigen Negative (Negative) Hepatitis C Antibody <0.1s/co ratio (0.0-0.9) HIV (1&2) Ag and Ab, 4th Generation Non reactive (Non Reactive) Lactic Acid Level 1.9mmol/L (0.4-2.0) Procalcitonin 0.07ng/mL (0.00-0.08) White Blood Count 8.8th/mm3 (3.8-10.1) Red Blood Count 3.46mil/mm3 (4.40-5.80) Hemoglobin 10.3g/dL (13.8-17.2) Hematocrit 33.2% (41.0-50.0) Mean Corpuscular Volume 96.0fL (81-100) Mean Corpuscular Hemoglobin 29.8pg (27.0-35.0) Mean Corpuscular Hemoglobin Concent 31.0% (32.0-37.0) Red Cell Distribution Width 17.3% (12.3-15.4) Platelet Count 195bil/L (150-400) Neutrophils (%) (Auto) 75.5% (40-74) Lymphocytes (%) (Auto) 13.2% (14-46) Monocytes (%) (Auto) 8.8% (4-12) Eosinophils (%) (Auto) 1.9% (0-5) Basophils (%) (Auto) 0.3% (0-3) Prothrombin Time 11.6sec (8.1-12.5) Prothromb Time International Ratio 1.08ratio Activated Partial Thromboplast Time 32.4sec (22.8-33.0) Sodium Level 143mEq/L (134-144) Potassium Level 4.8mEq/L (3.5-5.2) Chloride Level 100mEq/L (97-108) Carbon Dioxide Level 29mmol/L (18-29) Blood Urea Nitrogen 17mg/dL (8-27) Creatinine 0.78mg/dL (0.76-1.27) Estimat Glomerular Filtration Rate 103mL/min (>59) Glucose Level 219mg/dL (60-99) Calcium Level 8.6mg/dL (8.5-10.1) Phosphorus Level 2.4mg/dL (2.5-4.9) Magnesium Level 2.0mg/dL (1.6-2.6) Total Bilirubin 0.6mg/dL (0.0-1.2) Aspartate Amino Transf (AST/SGOT) 27U/L (0-50) Alanine Aminotransferase (ALT/SGPT) 22U/L (0-44) Alkaline Phosphatase 101U/L (25-160) Total Protein 5.5g/dL (6.4-8.4) Albumin 3.0g/dL (3.4-5.0) Discharge Medications Discharge Medications Aspirin Chew (Aspirin Chew) 81 Mg Chew 81 MG PO QAM (Reported) Atorvastatin (Lipitor) 80 Mg Tablet 80 MG PO QAM (Reported) Cholecalciferol (Vitamin D3) (Vitamin D3) 1,000 Unit Tab.chew 1,000 UNIT PO QAM (Reported) Cyanocobalamin (Vitamin B-12) (Vitamin B-12) 1,000 Mcg Tablet 1,000 MCG PO QAM ( Reported) Enalapril Maleate (Enalapril Maleate) 20 Mg Tablet 20 MG PO BID Prescribed by: Isamar YE Enoxaparin (Lovenox) 100 Mg/Ml Syringe 100 MG SUBQ Q12H Prescribed by: Isamar YE Ferrous Sulfate (Ferrous Sulfate) 325 Mg Tablet 325 MG PO BIDWM (Reported) Finasteride (Finasteride) 5 Mg Tablet 5 MG PO QAM (Reported) Furosemide (Furosemide) 40 Mg Tablet 40 MG PO BID Prescribed by: Isamar YE Lactobacillus Acidophilus (Acidophilus) 1 Each Capsule 2 EACH PO BID (Reported) Metformin (Glucophage) 1,000 Mg Tablet 1,000 MG PO BIDWM (Reported) NPH, Human Insulin Isophane (HUMulin-N U100 Insulin Vial) 100 Unit/1 Ml Vial 25 UNIT SUBQ BID (Reported) Nystatin (Nystatin) 60 Applic/15 Gm Cream 1 APPLIC TOP BID (Reported) Potassium Chloride (Potassium Chloride) 20 Meq Tab.er.prt 20 MEQ PO BID Prescribed by: Isamar YE Tamsulosin (Flomax) 0.4 Mg Capsule 0.4 MG PO HS (Reported) Trazodone (Trazodone) 100 Mg Tablet 100 MG PO HS (Reported) Warfarin Sodium (Coumadin) 2.5 Mg Tablet 7.5 MG PO ONCE@17 Prescribed by: Isamar YE Zinc Oxide (Zinc Oxide) 57 Gm Oint...g. 1 APPLIC TP TID (Reported) As needed Acetaminophen (Acetaminophen) 325 Mg Tablet 650 MG PO Q4H PRN PRN For Pain ( Reported) Albuterol Neb Soln (Albuterol Neb Soln) 2.5 Mg/3 Ml Vial.neb 2.5 MG INHALATION Q4H PRN PRN For Shortness of Breath (Reported) Bisacodyl (Dulcolax Rectal) 10 Mg Supp.rect 10 MG RC DAILY PRN PRN For Constipation (Reported) Insulin Human Lispro (HumaLOG U100 Insulin Vial) 100 Unit/Ml Unit 0-12 UNIT SUBQ TIDAC PRN PRN sliding scale (Reported) Check blood sugars before meals and at bedtime. Use correction factor only before meals. Blood Sugar Lispro Correction: <151, 0 units; 151-175, 1 unit; 176-200, 2 units; 201-225, 3 units; 226-250, 4 units; 251-275, 5 units; 276-300 , 6 units; 301-325, 7 units; 326-350, 8 units; 351-375, 9 units; 376-400, 10 units; >400, 12 units. Magnesium Hydroxide (Milk of Magnesia) 400 Mg/5 Ml Oral.susp 30 ML PO DAILY PRN PRN For Constipation (Reported) Na Phos,M-B/Na Phos,Di-Ba (Fleet Enema) 133 Ml Enema 133 ML RC DAILY PRN PRN For Constipation (Reported) oxyCODONE (oxyCODONE) 5 Mg Tablet 5 MG PO Q6H PRN PRN For Pain Prescribed by: Isamar YE Followup Plan Disposition: Patient will be discharged to [facility] in stable condition for rehabilitation with physical therapy and occupational therapy. Follow-up plan Follow-up with cardiology, Dr. Nguyen in 2 weeks and with PCP, Dr. Varner in 2 weeks. Discharge Diet: Heart Healthy, Diabetic Discharge Activity: Other ([facility] with [facility] Therapy and Occupational Therapy ) Patient Instructions You presented to the Emergency department because you were progressively feeling fatigue and weak. We found that your blood pressure was low and your oxygen levels were also low. In addition, you were confused, not oriented and very somnolent because your CO2 levels were high. It appeared that you were dehydrated and so we fixed your low blood pressure by giving you fluids. In addition, we started you on BiPap because of your low oxygen and high CO2 levels and you responded well to that. I encourage you to use your CPAP machine regularly once you are discharged. In addition, we also consulted cardiology, who reviewed your ECHOcardiogram ( Ultrasound of the heart) and suggested that we resume your Lasix because it also appeared that you were having acute congestive heart failure. Cardiology did a repeat Ultrasound which showed some improvement in your heart function and they said that there was no need to do a heart catheterization at this time. Instead, we will proceed with medical management and to follow-up with cardiology Dr. Nguyen as an outpatient in several weeks. At one point, we also stopped your warfarin and gave you Vitamin K to reverse the INR because we thought you might be undergoing a heart catheterization. However, given the improvement in your ECHO, this was not warranted. We are starting you back on Coumadin. However, you will need to bridge it with Lovenox. You will need to get Lovenox injections for 3 more days along with Warfarin. The instructions are for the nurse at [facility] to check your INR daily and adjust your warfarin as needed. Lastly, you have really shown improvement since you were admitted. You will be going to [facility] for rehabilitation with Physical Therapy and Occupational Therapy. Please continue to participate in this so that you can become stronger and return to your baseline. Follow-up Provider: Devante Whipple MD Follow-up with PCP in: 2 weeks Provider: Malgorzata Varner MD Follow-up in: 2 weeks Time spent Greater than 35 minutes Attending Statement The patient was seen and examined together with Dr. Chambers on 11/01/16 and I have added additional information to the note above. copies to: Devante Whipple MD; Malgorzata Varner MD; Nicole Pennington MD, Alexa N DO Nov 01, 2016 19:00 Marycruz Ivy DO Nov 03, 2016 16:52
[2016-11-03 15:08] LABS: Antiproteinase 3 (PR-3) Abs <3.5 U/mL (0.0-3.5); Perinuclear (P-ANCA) <1:20 titer (Neg:<1:20)
== END 2016-11-01 18:02 | DRG 291 ==
LOC: SED 12:41 → CCU 15:33 → PCC 21:36
PROVIDERS: ADMIT Internal Medicine; ATTEND Internal Medicine
PROC: 4A033R1 Measurement of Arterial Saturation, Peripheral, Percutaneous Approach (ICD-10-PCS; principal; 2016-10-26)
DX: I50.23 Acute on chronic systolic (congestive) heart failure (principal); J96.02 Acute respiratory failure with hypercapnia; I24.8 Other forms of acute ischemic heart disease; E87.2 Acidosis; G93.1 Anoxic brain damage, not elsewhere classified; E87.4 Mixed disorder of acid-base balance; E66.2 Morbid (severe) obesity with alveolar hypoventilation; R31.9 Hematuria, unspecified; T45.515A Adverse effect of anticoagulants, initial encounter; N05.6 Unspecified nephritic syndrome with dense deposit disease; Z68.34 Body mass index [BMI] 34.0-34.9, adult; N20.0 Calculus of kidney; Z79.01 Long term (current) use of anticoagulants; Z79.4 Long term (current) use of insulin; Z79.84 Long term (current) use of oral hypoglycemic drugs; Z95.1 Presence of aortocoronary bypass graft; Z95.2 Presence of prosthetic heart valve; G47.33 Obstructive sleep apnea (adult) (pediatric); E11.319 Type 2 diabetes mellitus with unspecified diabetic retinopathy without macular edema; R79.1 Abnormal coagulation profile; I27.2 Other secondary pulmonary hypertension; N40.0 Benign prostatic hyperplasia without lower urinary tract symptoms

== ENCOUNTER 2016-11-08 15:52 | Emergency (ER) | payer MEDICARE ==
[~2016-11-08] VITALS: Ht 172.7 cm; Wt 97.7 kg
[~2016-11-08 15:52] MED LIST changes: +ALBU2.5V4 INHALATION; -AMLO10TA3 PO; -AMOX1TAB11 PO; -ATEN50TA PO; +BISA10SU61 RC; +LACT1CAP26 PO; +LOV100 SUBQ; +MAGN400O4 PO; +MYCC TOP; +NA P133E23 RC; -NPH,100V10 SUBQ; +NPH,100V11 SUBQ; -OXYC1TAB24 PO; +POTA20TA16 PO; -TRAZ-115 PO; +TRAZ-118 PO; +WARF2.5T PO; +ZINC57OI TP
[2016-11-08 16:00] VITALS: BP 130/46; PULSE 115; RESP 16; O2SAT 100
--- NOTE | 2016-11-08 17:18 | ED.REPORT ---
HPI-Extremity Problem Lower Date of Service Nov 08, 2016 ED Provider: Rohit Patel MD Pt is a 76 year old male with a history of CHF, hypertension, DM, and CAD on Warfarin who presents to the ED via EMS from [facility] complaining of progressively worsening left leg cramping onset this morning. He was recently admitted with pneumonia on 10/26/16 and discharged to [facility] one week ago. He states that he recently increased the use of his left leg in physical therapy when he did 40 leg lifts when he was recommended to only do 10. Pt came to the ED today to rule out evidence of a DVT. He denies chest pain or SOB. Nursing Notes Stated Complaint: LEFT LEG SWELLING Chief Complaint: Extremity Trauma Nursing Notes Reviewed: Yes Allergies: Coded Allergies: NSAIDS (Non-Steroidal Anti-Inflamma (Verified Allergy, Unknown, 11/08/16) ciprofloxacin (Verified Allergy, Unknown, 11/08/16) cortisone (Verified Allergy, Unknown, 11/08/16) ceftriaxone (Verified Adverse Reaction, Intermediate, 11/08/16) Scheduled Aspirin Chew (Aspirin Chew) 81 Mg Chew 81 MG PO QAM Atorvastatin (Lipitor) 80 Mg Tablet 80 MG PO QAM Cholecalciferol (Vitamin D3) (Vitamin D3) 1,000 Unit Tab.chew 1,000 UNIT PO QAM Cyanocobalamin (Vitamin B-12) (Vitamin B-12) 1,000 Mcg Tablet 1,000 MCG PO QAM Enalapril Maleate (Enalapril Maleate) 20 Mg Tablet 20 MG PO BID Enoxaparin (Lovenox) 100 Mg/Ml Syringe 100 MG SUBQ Q12H Ferrous Sulfate (Ferrous Sulfate) 325 Mg Tablet 325 MG PO BIDWM Finasteride (Finasteride) 5 Mg Tablet 5 MG PO QAM Furosemide (Furosemide) 40 Mg Tablet 40 MG PO BID Lactobacillus Acidophilus (Acidophilus) 1 Each Capsule 2 EACH PO BID Metformin (Glucophage) 1,000 Mg Tablet 1,000 MG PO BIDWM NPH, Human Insulin Isophane (HUMulin-N U100 Insulin Vial) 100 Unit/1 Ml Vial 25 UNIT SUBQ BID Nystatin (Nystatin) 60 Applic/15 Gm Cream 1 APPLIC TOP BID Potassium Chloride (Potassium Chloride) 20 Meq Tab.er.prt 20 MEQ PO BID Tamsulosin (Flomax) 0.4 Mg Capsule 0.4 MG PO HS Trazodone (Trazodone) 100 Mg Tablet 100 MG PO HS Warfarin Sodium (Coumadin) 2.5 Mg Tablet 7.5 MG PO ONCE@17 Zinc Oxide (Zinc Oxide) 57 Gm Oint...g. 1 APPLIC TP TID Scheduled PRN Acetaminophen (Acetaminophen) 325 Mg Tablet 650 MG PO Q4H PRN PRN For Pain Albuterol Neb Soln (Albuterol Neb Soln) 2.5 Mg/3 Ml Vial.neb 2.5 MG INHALATION Q4H PRN PRN For Shortness of Breath Bisacodyl (Dulcolax Rectal) 10 Mg Supp.rect 10 MG RC DAILY PRN PRN For Constipation Insulin Human Lispro (HumaLOG U100 Insulin Vial) 100 Unit/Ml Unit 0-12 UNIT SUBQ TIDAC PRN PRN sliding scale Check blood sugars before meals and at bedtime. Use correction factor only before meals. Blood Sugar Lispro Correction: <151, 0 units; 151-175, 1 unit; 176-200, 2 units; 201-225, 3 units; 226-250, 4 units; 251-275, 5 units; 276-300 , 6 units; 301-325, 7 units; 326-350, 8 units; 351-375, 9 units; 376-400, 10 units; >400, 12 units. Magnesium Hydroxide (Milk of Magnesia) 400 Mg/5 Ml Oral.susp 30 ML PO DAILY PRN PRN For Constipation Na Phos,M-B/Na Phos,Di-Ba (Fleet Enema) 133 Ml Enema 133 ML RC DAILY PRN PRN For Constipation oxyCODONE (oxyCODONE) 5 Mg Tablet 5 MG PO Q6H PRN PRN For Pain General Time Seen by MD: 16:34 Chief Complaint Other (Left leg cramping) Hx Obtained From: Patient Arrived By: Ambulance Onset Occurred: 5 - 8 hours ago Symptom Duration: Constant Quality: Painful Severity: Current: Mild Severity: Maximum: Moderate Recent Healthcare: Recent doctor visit, Recent hospitalization Similar Sx Previous: No Past Medical History Past Medical History Notes: Code status: Full treatment/Full code Past Medical History 1. Diabetes mellitus. 2. Hypertension. 3. Hypercholesterolemia. 4. Severe obesity 5. History of smoking. 6. Status post coronary artery bypass surgery x4 and mechanical aortic valve replacement on January 11, 2003. 7. Obstructive sleep apnea, on continuous positive airway pressure. 8. Chronic dizziness. 9. Right bundle branch block. 10. Moderate to severe tricuspid regurgitation. 11. h/o Subdural hematoma requiring surgical drainage and craniotomy January 2015 12. CHF 13. Sepsis 14. Kidney stones Past Surgical History aortic valve (mechanical) craniotomy for subdural January 2015 chest tumor removal Shoulder surgery Family History Noncontributory Smoking History Former Smoker Social History Drug Use: Denies drug use Other Social History: Good social support, , Lives in [facility], Local resident Ambulatory Status Independent Review of Systems Musculoskeletal: Reports: Extremity pain (left leg cramping) Complete sys rev & neg: except as marked. Respiratory: Denies: Shortness of breath Cardiovascular: Denies: Chest pain Physical Exam Initial Vital Signs Vital Signs (First) Date Time Temp Pulse Resp B/P Pulse Ox O2 Delivery O2 Flow Rate FiO2 11/08/16 16:00 36.7 115 16 130/46 100 Room Air Initial VS: Reviewed Head / Eyes: Atraumatic, Normocephalic Neck: Supple, Full range of motion Respiratory: No respiratory distress Upper Extremities: Vascular intact, Neuro intact, No swelling, No tenderness Skin: Warm, Dry, No cyanosis Neurologic: Alert, Oriented, Nonfocal Psychiatric: Mood/affect normal, Behavior normal, Normal thought content Lower Extremity / Pelvis / MS: Neurologic intact, Vascular intact No lower leg edema or erythema Ankle / Foot: Neurologic intact, Vascular intact General/Constitutional: Awake, Alert Interpretation & Diagnostics VENOUS LEG DUPLEX, UNILATERAL LEFT: IMPRESSION: No evidence of left lower extremity DVT. Dictated by: Tristin Martinez M.D. on 11/08/2016 at 17:21 Approved by: Tristin Martinez M.D. on 11/08/2016 at 17:21 Lab Results Interpretation Test 11/08/16 16:20 11/08/16 16:25 Hold Urine Received (Received) Hold Purple Top Tube Received (Received) Hold [place] Top Tube Received (Received) Hold [place] Top Tube Received (Received) Re-Eval/Medical Decision Med Decision/Clinical Course 76-year-old male presenting with left leg cramps that started after multiples leg raises earlier today. He was told to do 10. He did 40. Plenty of left leg cramps therefore [place] to send him in for rule out DVT. Ultrasound shows no DVT. Likely due to exercise. He has no chest pain or dyspnea to suggest PE. Return precautions given. Source of Hx: Old records Re-Evaluation/Progress : Time of Eval: 17:15 Re-Evaluation/Progress Note: Discussed plan for discharge. Patient agrees and understands plan. Gave all RTER and follow-up directions. All questions addresssed at this time. Counseled Regarding: Diagnosis, Lab results, Need for follow-up, When/why to return to ED Discharge & Departure Impression: Primary Impression: Cramps of left lower extremity Disposition: Home Discharge Condition All VS Reviewed: Yes Condition: Stable Patient Instructions: Leg Cramps (ED) Additional Instructions: Thank you for entrusting us with your care today. Your labs, examination, and imaging results were all reassuring. There is no evidence of DVT in your left leg. Please call today to schedule a follow-up appointment with your primary care doctor in 2-3 days for a recheck. Please return to the emergency department if you are having any new or worsening symptoms, such as increased swelling, redness, discharge, fever, nausea, vomiting, difficulty breathing, chest pain, lightheadedness, numbness/ tingling, or weakness. Referrals: Malgorzata Varner MD (PCP) Scribe Attestation Portions of this note were transcribed by Lori Villalobos. I, Dr. Patel personally performed the history, physical exam and medical decision-making; I reviewed and confirmed the accuracy of the information in the transcribed note. copies to: Malgorzata Varner MD, Ben M MD Nov 08, 2016 17:18 Lori Villalobos Nov 08, 2016 17:23
--- NOTE | 2016-11-08 17:23 | DRSVH ---
PROCEDURE: US VEINOUS LEG DUPLEX UNILATERAL, LEFT INDICATIONS: left leg swelling ? clot TECHNIQUE: Real-time imaging, as well as color and pulse Doppler interrogation, were performed of the lower extr emity deep veins from the inguinal ligament to the popliteal fossa. COMPARISON: None. FINDINGS: The deep veins are normally compressible, and free of intraluminal thrombus. Color and pu lse Doppler demonstrate normal phasic intraluminal flow. There is normal augmentation response to di stal compression maneuver. IMPRESSION: No evidence of left lower extremity DVT. Dictated by: Tristin Martinez M.D. on 11/08/2016 at 17:21 Approved by: Tristin Martinez M.D. on 11/08/2016 at 17:21
[2016-11-08 17:52] VITALS: BP 102/47; PULSE 112; RESP 16; O2SAT 99
[2016-11-08 18:18] VITALS: BP 102/47; PULSE 112; RESP 16; O2SAT 99
== END 2016-11-08 18:10 | disposition home or self-care (01) ==
LOC: SED 15:52 → EDUNIT# 15:52 → EDBD 15:52 → SED 18:10
DX: R25.2 Cramp and spasm (principal); I11.0 Hypertensive heart disease with heart failure; E11.59 Type 2 diabetes mellitus with other circulatory complications; I50.9 Heart failure, unspecified; I25.10 Atherosclerotic heart disease of native coronary artery without angina pectoris; E78.00 Pure hypercholesterolemia, unspecified; G47.33 Obstructive sleep apnea (adult) (pediatric); E66.9 Obesity, unspecified; Z87.01 Personal history of pneumonia (recurrent); Z87.442 Personal history of urinary calculi; Z95.1 Presence of aortocoronary bypass graft; Z95.4 Presence of other heart-valve replacement; Z98.890 Other specified postprocedural states; Z79.82 Long term (current) use of aspirin; Z79.84 Long term (current) use of oral hypoglycemic drugs; Z79.01 Long term (current) use of anticoagulants; Z87.891 Personal history of nicotine dependence; Z88.1 Allergy status to other antibiotic agents; Z88.6 Allergy status to analgesic agent; Z88.8 Allergy status to other drugs, medicaments and biological substances